=== PATIENT | male | born 1940 | race Caucasian/White ===

== ENCOUNTER → 2016-10-26 | Outpatient (CLI) | payer MEDICARE, OTHER ==
[2014-03-16 15:20] VITALS: BP 116/71
[~2016-10-26] MED LIST: ACLI400A2 IH; ALBU2.5V14 NEB; ALBU8.5H6 INH; ALLO100T PO; CAPS42.510 TP; CELE200C PO; CHOL10002 PO; DILT120C80 PO; FURO40TA4 PO; GLIP5TAB10 PO; GLUC1CAP48 PO; HYDR-2165 PO; KETO5DRO OP; MAGN27TA3 PO; METF-620 PO; METF500T4 PO; METO100T5 PO; METO1TAB7 PO; METO50TA2 PO; MULT-211 PO; NIAC750T4 PO; OMEG300C PO; OMEP20CA9 PO; OXYC-323 PO; POTA20TA84 PO; PSYL0.526 PO; TAMS0.4C2 PO; TELM40TA4 PO; TORS20TA2 PO; WARF2TAB7 PO; WARF4TAB7 PO
--- NOTE | 2016-10-26 13:03 | CARD ---
APPROVED REPORT EXAM: Two-dimensional and M-mode echocardiogram with Doppler and color Doppler. Other Information Quality : Average Rhythm : Atrial Fibrillation INDICATION COPD 2D DIMENSIONS RVDd4.4 (2.9-3.5cm)Left Atrium(2D)4.3 (1.6-4.0cm) IVSd0.9 (0.7-1.1cm)Aortic Root(2D)3.7 (2.0-3.7cm) LVDd5.1 (3.9-5.9cm)LVOT Diameter2.2 (1.8-2.4cm) PWd0.9 (0.7-1.1cm)LVDs3.0 (2.5-4.0cm) SV91.5 mlLVEF(%)50.8 (>50%) Aortic Valve AoV Peak Jimenez.137.6cm/sAoV VTI29.6cm AO Peak GR.7.6mmHgLVOT Peak Jimenez.80.2cm/s LVOT VTI 15.58cmAO Mean GR.6mmHg GIBSON (VMAX)2.95md3MLX (VTI)2.01cm2 Mitral Valve MV DECEL [id number] E Mean Gr.2mmHg MV [id number] A [id number] MVA (PHT)4.18cm2 Pulmonary Valve PV Peak Vonrrbrp20.9cm/sPV Peak Grad.4mmHg RVOT VTI13.9cm Tricuspid Valve TR P. Fktyrnij768et/sRAP [id number] TR Peak Gr.72olJuJYTF71hgSg LEFT VENTRICLE The left ventricle is normal size. There is normal left ventricular wall thickness. Left ventricle sy stolic function is normal. The Ejection Fraction is 55%. There is normal LV segmental wall motion. Un able to estimate diastolic function. There is no ventricular septal defect visualized. RIGHT VENTRICLE The right ventricle is normal size. The right ventricular systolic function is normal. ATRIA The left atrium is mildly dilated. The right atrium size is normal. The interatrial septum is intact with no evidence for an atrial septal defect or patent foramen ovale as noted on 2-D or Doppler imagi ng. AORTIC VALVE The aortic valve is moderately sclerotic. The aortic valve appears trileaflet. Doppler and Color Flow revealed no significant aortic regurgitation. There is no significant aortic valvular stenosis. MITRAL VALVE Mitral annular calcification is moderate. The mitral valve leaflets are thickened. There is no mitral valve stenosis. Doppler and Color Flow revealed mild mitral regurgitation. TRICUSPID VALVE The tricuspid valve is normal in structure and function. Doppler and Color Flow revealed mild tricusp id regurgitation. The PA pressure was estimated at 30 mmHg. There is no tricuspid valve stenosis. PULMONIC VALVE The pulmonic valve is not well visualized. Doppler and Color Flow revealed no pulmonic valvular regur gitation. There is no pulmonic valvular stenosis. GREAT VESSELS The aortic root is normal in size. The ascending aorta is normal in size. Normal pulmonary venous garima w (Doppler). The IVC is normal in size and collapses >50% with inspiration. PERICARDIAL EFFUSION There is no evidence of significant pericardial effusion. Critical Notification Critical Value: No <Conclusion> Left ventricle systolic function is normal. The Ejection Fraction is 55%. There is normal LV segmental wall motion. Mild mitral regurgitation. Mild tricuspid regurgitation. The PA pressure was estimated at 30 mmHg. There is no evidence of significant pericardial effusion.
--- NOTE | 2016-10-29 19:52 | RAD ---
APPROVED REPORT Patient Location : OUT-PATIENT Indications Lower Extremity Pain : Bilateral Stasis Disease Lower Extremity Edema : Bilateral Varicose Veins Skin Changes Risk Factors Obesity Past History Compression Stockings : Yes Deep System Deep Venous Thrombosis present : No Deep Venous Reflux present : Left Greater Saphenous Veins (GSV) Significant venous relux noted in the LEFT GSV at the following levels : Proximal Calf Perforators Thigh Perforators Right: cm up from knee crease 65cm back from the anterior border of femur 20 diameter 4mm. Left: cm up from knee crease 70cm back from the anterior border of femur 17 diameter 3.6mm. Calf Perforators Right: cm up from medial heel 20cm back from the anterior border of tibia 12 diameter 2.3mm. Left: cm up from medial heel 15cm back from the anterior border of tibia 17 diameter 1.7mm. Findings The left great saphenous vein measures approximately 11 mm at the junction of the femoral vein. The s aphenous vein is dilated and has a reflux time of approximately 3.2 seconds. There are multiple perfo rators noted in the calf at approximately 15, 17, 86 cm up and 10, 10, 15 cm up with diameters of 2.5 -4 mm. There is one thigh coding support specialist noted at 70 cm up and 17 cm back with a diameter of 3.6 mm. The left lesser saphenous vein does not show any evidence of reflux. The right great saphenous vein measures 1.1 cm at the saphenofemoral junction. There is no clear evid ence of reflux on spectral and color Doppler imaging. The right lesser saphenous vein was not well vi sualized but does not appear to show any evidence of reflux. Again multiple perforators are noted in the right calf at approximately 20, 42 cm up and 12, 13 cm back respectively. The dimensions are appr oximately 2.2 mm. Given the evidence of a dilated great saphenous vein and multiple perforators in th e calf and thigh it is likely that the right great saphenous vein also has significant reflux but lik lai due to technical limitations this was not demonstrated. Critical Notification Critical Value: No <Conclusion> 1. Positive for reflux in the left greater saphenous vein. 2. Suspicious for reflux in the right greater saphenous vein although due to technical limitations, r eflux time could not be accurately calculated.
== END | disposition home or self-care (01) ==
LOC: US 08:33
PROVIDERS: ATTEND Internal Medicine Cardiovascular Disease
DX: I08.1 Rheumatic disorders of both mitral and tricuspid valves (principal); I87.2 Venous insufficiency (chronic) (peripheral); M79.605 Pain in left leg; M79.604 Pain in right leg; R60.0 Localized edema; I83.93 Asymptomatic varicose veins of bilateral lower extremities
CPT/HCPCS: 93306; 93970

== ENCOUNTER → 2017-09-04 | Outpatient (CLI) | payer MEDICARE | END | disposition home or self-care (01) | LOC: KCIC 12:46 | DX: M47.896 Other spondylosis, lumbar region (principal); I77.811 Abdominal aortic ectasia | CPT/HCPCS: 72110 ==

== ENCOUNTER 2017-11-24 07:18 | Emergency (ER) | payer MEDICARE, OTHER ==
[~2017-11-24] VITALS: Ht 185.4 cm; Wt 104.3 kg
[~2017-11-24 07:18] MED LIST changes: -METF-620 PO; +METF10003 PO; -METF500T4 PO; +METF500T5 PO; -METO50TA2 PO; +METO50TA6 PO; -WARF2TAB7 PO; +WARF2TAB96 PO; +WARF4TAB64 PO; -WARF4TAB7 PO
--- NOTE | 2017-11-24 07:31 | PHYS DOC ---
Past Medical History Past Medical History: A-Fib, CHF, COPD, Diabetes-Type II, GERD, High Cholesterol, Hypertension, Other Additional Past Medical Histor: "OLD [place]," CARDIAC [id number],CHF, Past Surgical History: Tonsillectomy, Other Additional Past Surgical Histo: FOOT, Alcohol Use: Occasionally Drug Use: None Adult General Chief Complaint Chief Complaint: LOWER EXTREMITY SWELLING [facility] HPI Patient is a 77 year old male presenting with right leg redness and swelling onset 2 days ago apparently had a small skin tear on his foot from a piece of tape apparently had an ulcer was pretty much healed but the piece of tape caused a small skin tear. He then has had slowly progressive redness swelling mild dull nonradiating pain right lower extremity no fever no other exacerbating factors Review of Systems Review of Systems Constitutional: Denies fever or chills [] Eyes: Denies change in visual acuity, redness, or eye pain [] HENT: Denies nasal congestion or sore throat [] Respiratory: Denies cough or shortness of breath [] Cardiovascular: No additional information not addressed in HPI [] Endocrine: Denies polyuria or polydipsia [] All other systems were reviewed and found to be within normal limits, except as documented in this note. Current Medications Current Medications Current Medications Medications (Trade) Dose Ordered Sig/Dejuan Start Time Stop Time Status Last Admin Dose Admin Clindamycin Phosphate 50 ml @ 100 mls/hr 1X ONCE 11/24/17 08:00 11/24/17 08:29 DC 11/24/17 07:57 100 MLS/HR Allergies Allergies Allergies Coded Allergies Type Severity Reaction Last Updated Verified Ivhauzr-Lyj-Vob Reductase Inhibitor Allergy Intermediate 03/16/14 Yes Physical Exam Physical Exam Constitutional: Well developed, well nourished, no acute distress, non-toxic appearance. [] HENT: Normocephalic, atraumatic, bilateral external ears normal, oropharynx moist, no oral exudates, nose normal. [] Eyes: PERRLA, EOMI, conjunctiva normal, no discharge. [] Neck: Normal range of motion, no tenderness, supple, no stridor. [] Pulmonary: Normal respiratory effort no increased work of breathing no obvious chest wall trauma Abdomen: Bowel sounds normal, soft, no tenderness, no masses, no pulsatile masses. [] Skin: There is an area of erythema with induration and tenderness from the mid danielson down to the ankle consistent with cellulitis pedal pulses are intact there is a small skin tear on the plantar aspect of the foot no ulcer is seen. No streaking xtremities 2+ edema bilaterally Neurologic: Alert and oriented X 3, normal motor function, normal sensory function, no focal deficits noted. [] Psychologic: Affect normal, judgement normal, mood normal. [] Current Patient Data Vital Signs Vital Signs Date Time Temp Pulse Resp B/P (MAP) Pulse Ox O2 Delivery O2 Flow Rate FiO2 11/24/17 08:22 81 17 112/56 (74) 95 Room Air 11/24/17 07:28 97.9 97.9 Lab Values Laboratory Tests Test 11/24/17 07:31 White Blood Count 8.1 x10^3/uL (4.0-11.0) Red Blood Count 4.49 x10^6/uL (4.30-5.70) Hemoglobin 14.3 g/dL (13.0-17.5) Hematocrit 43.0 % (39.0-53.0) Mean Corpuscular Volume 96 fL (79-100) Mean Corpuscular Hemoglobin 32 pg (25-35) Mean Corpuscular Hemoglobin Concent 33 g/dL (31-37) Red Cell Distribution Width 17.8 % (11.5-14.5) H Platelet Count 117 x10^3/uL (140-400) L Neutrophils (%) (Auto) 79 % (31-73) H Lymphocytes (%) (Auto) 10 % (24-48) L Monocytes (%) (Auto) 10 % (0-9) H Eosinophils (%) (Auto) 1 % (0-3) Basophils (%) (Auto) 0 % (0-3) Neutrophils # (Auto) 6.4 x10^3uL (1.8-7.7) Lymphocytes # (Auto) 0.8 x10^3/uL (1.0-4.8) L Monocytes # (Auto) 0.8 x10^3/uL (0.0-1.1) Eosinophils # (Auto) 0.1 x10^3/uL (0.0-0.7) Basophils # (Auto) 0.0 x10^3/uL (0.0-0.2) Sodium Level 136 mmol/L (136-145) Potassium Level 3.9 mmol/L (3.5-5.1) Chloride Level 98 mmol/L (98-107) Carbon Dioxide Level 28 mmol/L (21-32) Anion Gap 10 (6-14) Blood Urea Nitrogen 10 mg/dL (8-26) Creatinine 0.8 mg/dL (0.7-1.3) Estimated GFR (Cockcroft-Gault) 93.5 BUN/Creatinine Ratio 13 (6-20) Glucose Level 105 mg/dL (70-99) H Calcium Level 8.3 mg/dL (8.5-10.1) L Total Bilirubin 1.3 mg/dL (0.2-1.0) H Aspartate Amino Transferase (AST) 27 U/L (15-37) Alanine Aminotransferase (ALT) 28 U/L (16-63) Alkaline Phosphatase 80 U/L (46-116) Total Protein 6.0 g/dL (6.4-8.2) L Albumin 3.6 g/dL (3.4-5.0) Albumin/Globulin Ratio 1.5 (1.0-1.7) Laboratory Tests 11/24/17 07:31 Laboratory Tests 11/24/17 07:31 EKG EKG [] Radiology/Procedures Radiology/Procedures [] Course & Med Decision Making Course & Med Decision Making Pertinent Labs and Imaging studies reviewed. (See chart for details) []77-year-old male history of peripheral neuropathy was presenting with right lower extremity cellulitis overall it appears mild to moderate dose of IV Clinda mice given in the emergency room and prescription for Keflex and Bactrim was provided. Check basic lab work and give return precautions to come back within 48 hours should the redness get worse or not improve during that timeframe or for any other new symptoms or concerns. Keep legs elevated stay off them good wound care he has a partner who can help him. Dragon Disclaimer Dragon Disclaimer This electronic medical record was generated, in whole or in part, using a voice recognition dictation system. Departure Departure Impression: Primary Impression: Cellulitis Disposition: 01 HOME, SELF-CARE Condition: IMPROVED Referrals: Jose HASSAN MD (PCP) Scripts Cephalexin (CEPHALEXIN) 500 Mg Capsule 1 CAP PO QID, #40 CAP Prov: ROSEMAREI PALACIOS MD 11/24/17 Sulfamethoxazole/Trimethoprim (BACTRIM DS TABLET) 1 Each Tablet 1 TAB PO BID, #20 TAB Prov: ROSEMARIE PALACIOS MD 11/24/17 ROSEMARIE PALACIOS MD Nov 24, 2017 07:31
[2017-11-24] MEDS ORDERED: SULF1TAB24 PO (07:51)
[2017-11-24] MEDS ORDERED: CEPH500C PO (07:51)
[2017-11-24] MEDS ORDERED: CLINDAMYCIN 600MG PREMIX 50 ML IV ONE (08:00)
[2017-11-24 08:03] LABS: BASO % 0 % (0-3); EOS # 0.1 x10^3/uL (0.0-0.7); EOS % 1 % (0-3); HEMOGLOBIN 14.3 g/dL (13.0-17.5); LYMPH # 0.8 x10^3/uL (1.0-4.8); LYMPH % 10 % (24-48); MEAN CORPUSCULAR HEMOGLOBIN 32 pg (25-35); MEAN CORPUSCULAR HGB CONC 33 g/dL (31-37); MEAN CORPUSCULAR VOLUME 96 fL (79-100); MONO # 0.8 x10^3/uL (0.0-1.1); MONO % 10 % (0-9); NEUT # 6.4 x10^3uL (1.8-7.7); NEUT % 79 % (31-73); PLATELET COUNT 117 x10^3/uL (140-400); RED BLOOD COUNT 4.49 x10^6/uL (4.30-5.70); RED CELL DISTRIBUTION WIDTH 17.8 % (11.5-14.5); WHITE BLOOD COUNT 8.1 x10^3/uL (4.0-11.0)
[2017-11-24 08:09] LABS: CALCIUM 8.3 mg/dL (8.5-10.1); CREATININE 0.8 mg/dL (0.7-1.3); GFR 93.5; POTASSIUM 3.9 mmol/L (3.5-5.1)
[2017-11-24 08:15] LABS: ALBUMIN 3.6 g/dL (3.4-5.0); ALBUMIN/GLOBULIN RATIO 1.5 (1.0-1.7); TOTAL BILIRUBIN 1.3 mg/dL (0.2-1.0)
[2017-11-24 08:52] VITALS: BP 155/74
== END 2017-11-24 08:55 | disposition home or self-care (01) ==
LOC: ER 07:18
DX: L03.115 Cellulitis of right lower limb (principal); J44.9 Chronic obstructive pulmonary disease, unspecified; K21.9 Gastro-esophageal reflux disease without esophagitis; I48.91 Unspecified atrial fibrillation; E78.00 Pure hypercholesterolemia, unspecified; I11.0 Hypertensive heart disease with heart failure; I50.9 Heart failure, unspecified; E11.42 Type 2 diabetes mellitus with diabetic polyneuropathy; Z91.041 Radiographic dye allergy status
CPT/HCPCS: 36415; 80053; 85025; 96365; 99284; J3490

== ENCOUNTER 2017-11-25 03:55 | Emergency (ER) | payer MEDICARE, OTHER ==
[~2017-11-25] VITALS: Ht 182.9 cm; Wt 104.3 kg
[~2017-11-25 03:55] MED LIST changes: +CEPH500C PO; +SULF1TAB24 PO
[2017-11-25 04:05] VITALS: BP 134/77
--- NOTE | 2017-11-25 06:29 | PHYS DOC ---
Past Medical History Past Medical History: A-Fib, CHF, COPD, Diabetes-Type II, GERD, High Cholesterol, Hypertension, [place], Other Additional Past Medical Histor: CARDIAC [id number] Past Surgical History: Tonsillectomy, Other Additional Past Surgical Histo: FOOT, CARDIAC CATH Alcohol Use: Occasionally Drug Use: None Adult General Chief Complaint Chief Complaint: CELLULITIS HPI HPI Patient is a 77 year old male who presents for a wound check. I did see this patient yesterday in the emergency room with cellulitis was discharged on antibiotics he says he has taken 2 doses but he is worried because he is not better yet. No fever he does want come to be checked out. Review of Systems Review of Systems Constitutional: Denies fever or chills [] Eyes: Denies change in visual acuity, redness, or eye pain [] Neurologic: Denies headache, focal weakness or sensory changes [] Endocrine: Denies polyuria or polydipsia [] All other systems were reviewed and found to be within normal limits, except as documented in this note. Current Medications Current Medications Current Medications Medications (Trade) Dose Ordered Sig/Dejuan Start Time Stop Time Status Last Admin Dose Admin Ceftriaxone Sodium (Rocephin Im) 1 gm 1X ONCE 11/25/17 06:30 11/25/17 06:31 UNV Allergies Allergies Allergies Coded Allergies Type Severity Reaction Last Updated Verified Ehlncmw-Svj-Poz Reductase Inhibitor Allergy Intermediate 03/16/14 Yes Physical Exam Physical Exam Constitutional: Well developed, well nourished, no acute distress, non-toxic appearance. [] HENT: Normocephalic, atraumatic, bilateral external ears normal, oropharynx moist, no oral exudates, nose normal. [] Eyes: PERRLA, EOMI, conjunctiva normal, no discharge. [] Neck: Normal range of motion, no tenderness, supple, no stridor. [] Pulmonary: Normal respiratory effort no increased work of breathing no obvious chest wall trauma Abdomen: Bowel sounds normal, soft, no tenderness, no masses, no pulsatile masses. [] Skin: Warm, dry, no erythema, no rash. [] Back: No tenderness, no CVA tenderness. [] Extremities: 2+ edema bilaterally on the right leg there is similar appearing slightly more erythematous area on the anterior danielson down to the ankle. There is a ulcer on the fourth toe which looks similar previous it is dry appearing there is also a small skin tear on the plantar aspect of the foot. Overall the appearance is similar in size slightly more erythematous on the danielson then yesterday no fluctuance Neurologic: Alert and oriented X 3, normal motor function, normal sensory function, no focal deficits noted. [] Psychologic: Affect normal, judgement normal, mood normal. [] Current Patient Data Vital Signs Vital Signs Date Time Temp Pulse Resp B/P (MAP) Pulse Ox O2 Delivery O2 Flow Rate FiO2 11/25/17 04:05 98.7 87 22 134/77 (96) 100 Room Air 98.7 EKG EKG [] Radiology/Procedures Radiology/Procedures [] Course & Med Decision Making Course & Med Decision Making Pertinent Labs and Imaging studies reviewed. (See chart for details) []77-year-old male with a history of neuropathy and edema peripheral edema presenting with wound check. His cellulitis does appear slightly worse. Given his edema and peripheral vascular disease I did recommend that he be admitted to the hospital however he says that he has some dogs at home he needs to go home to check on them I did encourage him to keep his legs elevated and to come back within 24 hours for admission if he is not getting better. A dose of IM ceftriaxone was also given. He is agreeable to this plan. Dragon Disclaimer Dragon Disclaimer This electronic medical record was generated, in whole or in part, using a voice recognition dictation system. Departure Departure Impression: Primary Impression: Cellulitis Disposition: HOME, SELF-CARE Condition: IMPROVED Patient Instructions: Cellulitis, [id number] Additional Instructions: come back to be admitted in 24 hours if not better ROSEMARIE PALACIOS MD Nov 25, 2017 06:29
[2017-11-25] MEDS ORDERED: cefTRIAXone IM 1 GM VIAL IM ONE (06:45)
== END 2017-11-25 06:54 | disposition home or self-care (01) ==
LOC: ER 03:55
DX: L03.115 Cellulitis of right lower limb (principal); I11.0 Hypertensive heart disease with heart failure; I50.9 Heart failure, unspecified; I48.91 Unspecified atrial fibrillation; E11.9 Type 2 diabetes mellitus without complications; J44.9 Chronic obstructive pulmonary disease, unspecified; E78.00 Pure hypercholesterolemia, unspecified; K21.9 Gastro-esophageal reflux disease without esophagitis; I25.2 Old myocardial infarction; Z90.89 Acquired absence of other organs; Z88.8 Allergy status to other drugs, medicaments and biological substances
CPT/HCPCS: 96372; 99283; J0696

== ENCOUNTER 2017-11-27 06:11 | Emergency (ER) | payer MEDICARE, OTHER ==
[~2017-11-27] VITALS: Ht 182.9 cm; Wt 104.3 kg
[2017-11-27 06:19] VITALS: BP 111/64
--- NOTE | 2017-11-27 06:56 | PHYS DOC ---
Past Medical History Past Medical History: A-Fib, COPD, Diabetes-Type II, Hypertension Additional Past Medical Histor: CARDIAC [id number] Past Surgical History: Other Additional Past Surgical Histo: BILAT BIG TOES, CATARACT, BACK SURG Alcohol Use: None Drug Use: Opiates Adult General Chief Complaint Chief Complaint: WOUND CHECK HPI HPI Patient is a 77-year-old male presents to the emergency department for evaluation. He was diagnosed with cellulitis on his right leg on Sunday, where he noticed some redness. The area was demarcated, and he was started on Bactrim and Keflex. He states that the degree and intensity of the redness has decreased, and the area of redness has also receded more distally, and has not spread. He has not had any fever, and the swelling of his leg has improved as well. He does have, in his right foot, small collin-sized wound which has been there. He states he does see a gelatin maker utility, as he is a diabetic, but has not seen him about this wound. He has no other complaints at this time. His main purpose for coming to the emergency department was to just have his leg rechecked. He has not had any drainage from the area and has not had any pain. Review of Systems Review of Systems Constitutional: Denies fever or chills [] Eyes: Denies change in visual acuity, redness, or eye pain [] Respiratory: Denies cough or shortness of breath [] Cardiovascular: The patient denies any shortness of breath, chest pain, palpitations, or orthopnea [] GI: Denies abdominal pain, nausea, vomiting, bloody stools or diarrhea [] : Denies dysuria or hematuria [] Musculoskeletal: Denies back pain or joint pain [] Neurologic: Denies headache, focal weakness or sensory changes, although he does have chronic neuropathy. [] Allergies Allergies Allergies Coded Allergies Type Severity Reaction Last Updated Verified Jmjwvcu-Cps-Esi Reductase Inhibitor Allergy Intermediate 03/16/14 Yes Physical Exam Physical Exam PHYSICAL EXAM: HEENT: Atruamatic NECK: Supple, normal ROM, non-tender. CARDIAC: Regular Rate and Rhythm LUNGS: Clear Bilaterally EXTREMITIES: There is mild edema to the lower extremities bilaterally. On the right leg, there is an area of erythema around the ankle extending proximally on the lower leg, and at approximately the two thirds distal peyman on the leg, on the danielson, there is an area of demarcation, and the erythema appears to have receded more distal to this, without any more proximal spread. There is a strong dorsalis pedis pulse. On the plantar surface of the right foot, over the head of the fifth metatarsal, there is a stage I ulcer about collin-sized. Current Patient Data Vital Signs Vital Signs Date Time Temp Pulse Resp B/P (MAP) Pulse Ox O2 Delivery O2 Flow Rate FiO2 11/27/17 06:19 98.1 86 18 111/64 (80) 97 Room Air 98.1 EKG EKG [] Radiology/Procedures Radiology/Procedures [] Course & Med Decision Making Course & Med Decision Making The patient's condition remained stable here appears to be improving on his antibiotics, which I encouraged him to continue. I encouraged him to contact his gelatin maker utility to have his ulcer evaluated and treated. Dragon Disclaimer Dragon Disclaimer This electronic medical record was generated, in whole or in part, using a voice recognition dictation system. Departure Departure Impression: Primary Impression: Cellulitis Additional Impression: Diabetic foot ulcer Disposition: 01 HOME, SELF-CARE Condition: STABLE Referrals: Jose HASSAN MD (PCP) Patient Instructions: Cellulitis, Diabetes and Foot Care Additional Instructions: Continue taking your previously prescribed antibiotics. Contact your primary care provider for further management. Additionally, make an appointment to see your gelatin maker utility for further evaluation and treatment of your foot wound. Problem Qualifiers JASMYNE BELLAMY MD Nov 27, 2017 06:56
== END 2017-11-27 07:05 | disposition home or self-care (01) ==
LOC: ER 06:11
DX: E11.621 Type 2 diabetes mellitus with foot ulcer (principal); L97.518 Non-pressure chronic ulcer of other part of right foot with other specified severity; I48.91 Unspecified atrial fibrillation; J44.9 Chronic obstructive pulmonary disease, unspecified; I10 Essential (primary) hypertension; Z91.041 Radiographic dye allergy status
CPT/HCPCS: 99283

== ENCOUNTER → 2017-12-25 | Outpatient (CLI) | payer MEDICARE, OTHER ==
[2017-11-27 06:19] VITALS: BP 111/64
[~2017-12-25] MED LIST changes: -METF10003 PO; +METF10007 PO; +METF500T16 PO; -METF500T5 PO
--- NOTE | 2017-12-25 17:49 | KCIC ---
MRI of the lumbar spine without contrast 12/25/2017 CLINICAL HISTORY: Chronic low back pain. TECHNIQUE: Unenhanced T1-weighted and T2-weighted sagittal and axial and inversion recovery sagittal images of the lumbar spine were obtained. FINDINGS: Comparison is made to radiographs of the lumbar spine dated 09/04/2017. Minimal S-shaped curvature of the thoracolumbar spine is seen. Degenerative signal changes and loss of height are seen involving all of the disks of the lumbar spine. Degenerative signal changes are seen within the marrow surrounding these discs. The patient is post kyphoplasty type procedure involving the L2 vertebral body. No acute compression fracture of the lumbar vertebrae is seen. The conus medullaris is normal in morphology, position, and signal characteristics. Rounded high signal intensity lesions are seen involving both kidneys on the T2-weighted images. These measure 5 mm to 6.5 cm in size. They likely represent cysts. At the L1-2 disc space there is a mild generalized disc bulge. Degenerative changes are seen involving the facet joints bilaterally. There is mild ligamentum flavum hypertrophy bilaterally. These findings do not result in significant central spinal canal or neural foraminal stenosis. At the L2-3 disc space there is a moderate generalized disc bulge. Degenerative changes are seen involving the facet joints bilaterally. There is moderate ligamentum flavum hypertrophy bilaterally. These findings when combined result in mild central spinal canal stenosis. No neural foraminal stenosis is seen. At the L3-4 disc space there is a moderate generalized disc bulge. This is eccentric to the right. Degenerative changes are seen involving the facet joints bilaterally. There is moderate ligamentum flavum hypertrophy bilaterally. These findings when combined result in moderate to severe central spinal canal stenosis. Mild right neural foraminal stenosis is seen. The left neural foramen is patent. At the L4-5 disc space there is a moderate generalized disc bulge. Degenerative changes are seen involving the facet joints bilaterally. There is mild ligamentum flavum hypertrophy bilaterally. These findings when combined result in mild to moderate central spinal canal stenosis. Mild right neural foraminal stenosis is seen. The left neural foramen is patent. At the L5-S1 disc space there is a mild generalized disc bulge. Degenerative changes are seen involving the facet joints bilaterally. There is mild ligamentum flavum hypertrophy bilaterally. These findings when combined result in mild left-sided neural foraminal stenosis. The right neural foramen is patent. No significant central spinal canal stenosis is seen. 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 These findings result in mild central spinal canal stenosis at L2-3, moderate to severe central spinal canal stenosis at L3-4 and mild to moderate central spinal canal stenosis at L4-5. Mild right neural foraminal stenosis is seen at L3-4 and L4-5. Mild left neural foraminal stenosis is seen at L5-S1. Electronically signed by: Michael Leyva MD (12/25/2017 5:45 PM) [id number]
== END | disposition home or self-care (01) ==
LOC: KCIC MRI 15:47
PROVIDERS: ATTEND Family Medicine
DX: M51.36 Other intervertebral disc degeneration, lumbar region (principal); M48.061 Spinal stenosis, lumbar region without neurogenic claudication; M48.07 Spinal stenosis, lumbosacral region; M89.38 Hypertrophy of bone, other site; G89.29 Other chronic pain
CPT/HCPCS: 72148

== ENCOUNTER → 2018-01-29 | Outpatient (CLI) | payer MEDICARE, OTHER ==
[~2018-01-29] MED LIST changes: +HYDR-2758 PO; +IOHEXOL 180 MG/ML 10 ML VIAL. ONE; +LIDOCAINE 1% PF 2 ML VIAL. ONE; +methylPREDNISolone ACETATE 40 MG/ML VIAL. ONE; +methylPREDNISolone ACETATE 80 MG/ML VIAL. ONE
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
== END | disposition home or self-care (01) ==
LOC: PNCL 10:25
PROVIDERS: ATTEND Anesthesiology
DX: M51.16 Intervertebral disc disorders with radiculopathy, lumbar region (principal); M48.061 Spinal stenosis, lumbar region without neurogenic claudication; M96.1 Postlaminectomy syndrome, not elsewhere classified; I10 Essential (primary) hypertension; E11.9 Type 2 diabetes mellitus without complications; M19.90 Unspecified osteoarthritis, unspecified site; J44.9 Chronic obstructive pulmonary disease, unspecified; Z87.891 Personal history of nicotine dependence; I48.91 Unspecified atrial fibrillation; K21.9 Gastro-esophageal reflux disease without esophagitis; Z98.890 Other specified postprocedural states; Z79.899 Other long term (current) drug therapy; Z79.84 Long term (current) use of oral hypoglycemic drugs; Z88.8 Allergy status to other drugs, medicaments and biological substances; Z83.3 Family history of diabetes mellitus; Z82.49 Family history of ischemic heart disease and other diseases of the circulatory system; Z83.6 Family history of other diseases of the respiratory system; Z98.49 Cataract extraction status, unspecified eye; Z96.1 Presence of intraocular lens
CPT/HCPCS: 62323; J1030; J1040; Q9965

== ENCOUNTER → 2018-02-12 | Outpatient (CLI) | payer MEDICARE, OTHER ==
[~2018-02-12] MED LIST changes: -IOHEXOL 180 MG/ML 10 ML VIAL. ONE; -LIDOCAINE 1% PF 2 ML VIAL. ONE
--- NOTE | 2018-02-12 20:05 | PAIN ---
DATE OF SERVICE: 02/12/2018 PROGRESS NOTE FOR PAIN CLINIC DIAGNOSES: Lumbar radiculopathy with lumbar spinal stenosis, degenerative disk disease and lumbar post-laminectomy syndrome. HISTORY OF PRESENT ILLNESS: The patient is a 77-year-old male who returns for followup status post lumbar epidural steroid injection x 1. The patient reports better for a few days but with painful for the first day and a half or so and then, the pain began to return after about 2 weeks or is in the low back once again. The patient reports no longer radiating to the lower extremity significantly but very painful across the low back, slightly worse on the right than the left but again doing better. The patient reports it is a 5-6 on a scale of 10 at its worst, least and its average and is a 5-6 today. The patient reports it is aching, dull, cramping at times, constant across the low back, worse with standing, walking, changing positions. The patient reports it is better with lying down or sitting down and really only bothers him when he is on his feet and walking or standing. The patient reports no new motor or sensory deficits and no new bowel or bladder incontinence or other complaints. PHYSICAL EXAMINATION: VITAL SIGNS: The patient's blood pressure 107/65, pulse 71, respirations are 18 and temperature 98.1 degrees Fahrenheit. Height is 6 feet and weight is 233 pounds. GENERAL: The patient is awake, alert, oriented, appropriate and very pleasant demeanor. HEENT: Head shows normocephalic and atraumatic. Extraocular movements are intact and symmetrical. Oral cavity: Mucous membranes are moist and pink. Dentition is intact. NECK: Shows anterior throat supple without palpable lymphadenopathy noted. Swallow reflex is symmetrical. CHEST: Shows normal on inspection. Breath sounds are clear to auscultation bilaterally. HEART: Shows S1 and S2 clear. No murmurs auscultated. ABDOMEN: Soft, nontender and nondistended. No palpable organomegaly is noted. No rebound or guarding demonstrated. BACK: Shows spine grossly in the midline. Normal-appearing thoracic kyphosis and some minor flattening of the lumbar lordotic curvature. Well-healed surgical scarring noted. Lumbar paraspinous musculature shows symmetrical on inspection, on palpation shows some moderate tenderness diffusely in the middle and lower distribution of the paraspinous muscles, but only diffusely without radiation. The patient shows good rotational motion of the lumbar spine, both laterally as well as extension and flexion without significant difficulty. EXTREMITIES: The patient's lower extremities show deep tendon reflexes 1+ in the patellar and tendo-calcaneus tendons. Motor exam is approximately 4 on a scale of 5 but equal and symmetrical with dorsiflexion, extension, quadriceps and hamstring flexion. Peripheral pulses are 1+ posterior tibial. No peripheral edema is noted bilaterally. Options were discussed with the patient. The patient's old chart was reviewed as well as his current medication regimen updated. Current review of systems updated today as well. We will proceed with a second lumbar epidural steroid injection today with fluoroscopic guidance. Risks were again discussed including, but not limited to bleeding, infection, possibility of epidural hematoma, subsequent neurological compromise, dural puncture, headaches, spinal cord and/or nerve damage, side effects of steroid medication and poor results regarding pain control. The patient understands and wished to proceed. The patient will return to the clinic in approximately 2 weeks for followup, was counseled as to return appointment, activity level and side effects to be aware of. DIAGNOSES: Lumbar radiculopathy with lumbar degenerative disk disease, lumbar spinal stenosis and post-lumbar laminectomy syndrome. PROCEDURE: Lumbar epidural steroid injection, translaminar approach at the L3-L4 level using C-arm fluoroscopic guidance under sterile prep and drape using local anesthetic. MEDICATION INJECTED: A total of 120 mg Depo-Medrol plus 10 mL of preservative-free normal saline and 2 mL of Isovue for contrast. CONDITION AT DISCHARGE: Stable. The patient tolerated the procedure well and had no complications. CARIE JUNE MD DR: MARY/chas JOB#: [id number] / [id number]
== END | disposition home or self-care (01) ==
LOC: PNCL 09:34
PROVIDERS: ATTEND Anesthesiology
DX: M51.16 Intervertebral disc disorders with radiculopathy, lumbar region (principal); M96.1 Postlaminectomy syndrome, not elsewhere classified; M48.061 Spinal stenosis, lumbar region without neurogenic claudication; J44.9 Chronic obstructive pulmonary disease, unspecified; I10 Essential (primary) hypertension; K21.9 Gastro-esophageal reflux disease without esophagitis; E11.9 Type 2 diabetes mellitus without complications; M19.90 Unspecified osteoarthritis, unspecified site; I21.29 ST elevation (STEMI) myocardial infarction involving other sites; E78.5 Hyperlipidemia, unspecified; I25.10 Atherosclerotic heart disease of native coronary artery without angina pectoris; Z98.890 Other specified postprocedural states; Z79.899 Other long term (current) drug therapy; Z88.8 Allergy status to other drugs, medicaments and biological substances; Z79.84 Long term (current) use of oral hypoglycemic drugs; Z87.891 Personal history of nicotine dependence; Z98.49 Cataract extraction status, unspecified eye
CPT/HCPCS: 62323; J1030; J1040

== ENCOUNTER → 2018-03-19 | Outpatient (CLI) | payer MEDICARE, OTHER ==
[~2018-03-19] MED LIST changes: -DILT120C80 PO; +DILT120C85 PO; -HYDR-2758 PO; +HYDR-2761 PO; +IOHEXOL 180 MG/ML 10 ML VIAL. ONE; -OXYC-323 PO; +OXYC1TAB15 PO
--- NOTE | 2018-03-19 15:21 | PAIN ---
DATE OF SERVICE: 03/19/2018 PROGRESS NOTE FOR PAIN CLINIC DIAGNOSIS: Lumbar radiculopathy with lumbar degenerative disk disease, lumbar spinal stenosis and post-lumbar laminectomy syndrome. HISTORY OF PRESENT ILLNESS: The patient is a 78-year-old male who returns for followup status post lumbar epidural steroid injection x 2. The patient reports his last injection did very well with approximately 65% improvement from the last injection with pain in the low back and left lower extremity. The patient reports he was doing well until he fell about a week ago, he was trying to move a mat on the ground with his foot, stood on his left side and fell on his left side as he lost his balance. The patient reports that the pain has returned after that point in the low back and some in the left leg, mostly in the low back. The patient reports otherwise he is doing very well, increasing his activity, distance walking, able to do household activities with greater increase in comfort and traveling much more comfortably as well as sleeping well at night. The patient reports he still sleeps well. The pain does not awaken him from sleep. The patient reports no new motor or sensory deficits, no new bowel or bladder incontinence. The patient describes the pain as aching and dull, cramping across the low back, radiating into left lower extremity, becoming more noticeable, more constant. The patient reports it is a 9 on a scale of 10 at its worst, 8-9 on average and 8 at its least and is an 8 today. PHYSICAL EXAMINATION: VITAL SIGNS: The patient's blood pressure is 119/70, pulse 70, respirations 18, temperature 98.2 degrees Fahrenheit, height is 6 feet, weight is 239 pounds. GENERAL: The patient is awake, alert, oriented, appropriate, very pleasant demeanor. HEENT: His head shows normocephalic and atraumatic. Extraocular movements are intact and symmetrical. Oral cavity: Mucous membranes are moist and pink. Dentition is intact. NECK: Shows anterior throat supple without palpable lymphadenopathy noted. Swallow reflex is symmetrical. CHEST: Shows normal on inspection. Breath sounds are clear to auscultation bilaterally. HEART: Shows S1, S2 clear. No murmurs auscultated. ABDOMEN: Soft, nontender, nondistended. No palpable organomegaly is noted. No rebound or guarding demonstrated. BACK: Shows spine grossly in the midline. Normal appearing thoracic kyphosis and lumbar lordotic curvature. Lumbar paraspinous muscle shows symmetrical on inspection, on palpation shows some moderate tenderness, but only diffusely. Well-healed surgical scar is noted in the lumbar distribution as well. The patient has good rotational motion of lumbar spine, both laterally as well as extension and flexion without significant difficulty. EXTREMITIES: The patient's lower extremities show deep tendon reflexes 1+ in the patellar and tendo-calcaneus tendons are equal. Motor exam is strong with 4/5 but symmetrical and this is true with dorsiflexion, extension, quadriceps and hamstring flexion and symmetrical bilaterally. Peripheral pulses are 1+ posterior tibia. No peripheral edema is noted. Options were discussed with the patient. The patient's old chart was reviewed as his current medication regimen updated. Current review of systems updated today as well. We will proceed with a third in the series of lumbar epidural steroid injection today with fluoroscopic guidance. Risks were again discussed including, but not limited to bleeding, infection, possibility of epidural hematoma, subsequent neurological compromise, dural puncture, headaches, spinal cord and/or nerve damage, side effects of steroid medication and poor results regarding pain control. The patient understands and wished to proceed. The patient will return to the clinic in approximately 2 weeks for followup, was counseled on return appointment, activity level and side effects to be aware of. DIAGNOSIS: Lumbar radiculopathy with lumbar spinal stenosis, lumbar degenerative disk disease and post-lumbar laminectomy syndrome. PROCEDURE: Lumbar epidural steroid injection, translaminar approach at L3-L4 level using C-arm fluoroscopic guidance under sterile prep and drape using local anesthetic. MEDICATION INJECTED: A total of 120 mg Depo-Medrol plus 10 mL of preservative-free normal saline and 2 mL of Isovue for contrast. CONDITION AT DISCHARGE: Stable. The patient tolerated the procedure well, had no complications. CARIE JUNE MD DR: MARY/chas JOB#: [id number] / [id number]
== END ==
LOC: PNCL 10:52
PROVIDERS: ATTEND Anesthesiology
DX: M51.16 Intervertebral disc disorders with radiculopathy, lumbar region (principal); M48.061 Spinal stenosis, lumbar region without neurogenic claudication; M96.1 Postlaminectomy syndrome, not elsewhere classified
CPT/HCPCS: 62323; J1030; J1040; Q9965

== ENCOUNTER 2018-05-04 19:03 | Emergency (ER) | payer MEDICARE, OTHER ==
[~2018-05-04] VITALS: Ht 182.9 cm; Wt 99.8 kg
[~2018-05-04 19:03] MED LIST changes: -IOHEXOL 180 MG/ML 10 ML VIAL. ONE; -methylPREDNISolone ACETATE 40 MG/ML VIAL. ONE; -methylPREDNISolone ACETATE 80 MG/ML VIAL. ONE
--- NOTE | 2018-05-04 19:27 | PHYS DOC ---
Past Medical History Past Medical History: A-Fib, COPD, Diabetes-Type II, Hypertension Additional Past Medical Histor: CARDIAC [id number] (DIEGO CASTLE APRN) Past Surgical History: Other Additional Past Surgical Histo: BILAT BIG TOES, CATARACT, BACK SURG (DIEGO CASTLE APRN) Alcohol Use: None Drug Use: Opiates (DIEGO CASTLE APRN) Adult General Chief Complaint Chief Complaint: MECHANICAL FALL HPI HPI Patient is a 78 year old male with history of A. fib, diabetes type 2, high cholesterol, who presents today to be evaluated status post falling at 1430. 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 Patient denies any loss of consciousness. He states he hit his back on the ground. He states he is on an aspirin 81 mg daily. He is complaining of 10 out of 10 posterior head pain, posterior neck pain, upper, mid and low back pain. Patient states the pain is sharp and intermittent worse on certain movements. Patient states he took hydrocodone at home with minimal relief. Patient denies any weakness. Denies any pain radiating to bilateral lower extremities. He states he has history of lumbar surgery. (DIEGO CASTLE APRN) Review of Systems Review of Systems Constitutional: Denies fever or chills [] Eyes: Denies change in visual acuity, redness, or eye pain [] HENT: Denies nasal congestion or sore throat [] Respiratory: Denies cough or shortness of breath [] Cardiovascular: No additional information not addressed in HPI [] GI: Denies abdominal pain, nausea, vomiting, bloody stools or diarrhea [] : Denies dysuria or hematuria [] Musculoskeletal: Reports upper back pain, mid back pain,and low back surgery Integument: Denies rash or skin lesions [] Neurologic: Reports posterior head pain, denies focal weakness or sensory changes [] All other systems were reviewed and found to be within normal limits, except as documented in this note. (DIEGO CASTLE APRN) Current Medications Current Medications Current Medications Medications (Trade) Dose Ordered Sig/Dejuan Start Time Stop Time Status Last Admin Dose Admin Albuterol/ Ipratropium (Duoneb) 3 ml 1X ONCE 05/04/18 21:45 05/04/18 21:47 DC 05/04/18 21:43 3 ML Diazepam (Valium) 5 mg 1X ONCE 05/04/18 19:30 05/04/18 19:31 DC 05/04/18 19:32 5 MG ([facility]) Allergies Allergies Allergies Coded Allergies Type Severity Reaction Last Updated Verified Zmihywr-Lum-Dus Reductase Inhibitor Allergy Intermediate 03/16/14 Yes (MENA BAUTISTA APRN) Physical Exam Physical Exam Constitutional: Well developed, well nourished, no acute distress, non-toxic appearance. [] HENT: Normocephalic, atraumatic, bilateral external ears normal, oropharynx moist, no oral exudates, nose normal. [] Eyes: PERRLA, EOMI, conjunctiva normal, no discharge. [] Neck: Normal range of motion, slight paraspinal muscle tenderness to posterior cervical spine with mild midline tenderness, supple, no stridor. [] Cardiovascular:Heart rate regular rhythm, no murmur [] Lungs & Thorax: Bilateral breath sounds clear to auscultation [] Abdomen: Bowel sounds normal, soft, no tenderness, no masses, no pulsatile masses. [] Skin: Warm, dry, no erythema, no rash. [] Back: Diffuse paraspinal muscle tenderness to thoracic spine, mild mid thoracic spine tenderness, slight midline lumbar spine tenderness, no CVA tenderness. [] Extremities: No tenderness, no cyanosis, no clubbing, ROM intact, no edema. [] Neurologic: Alert and oriented X 3, normal motor function, normal sensory function, no focal deficits noted. Cranial nerves II through XII intact Psychologic: Affect normal, judgement normal, mood normal. [] ([facility]) Current Patient Data Vital Signs Vital Signs Date Time Temp Pulse Resp B/P (MAP) Pulse Ox O2 Delivery O2 Flow Rate FiO2 05/04/18 22:00 88 20 90 05/04/18 21:45 Room Air 05/04/18 19:07 98.0 157/75 (102) 98.0 ([facility] DIRECT[facility]) Lab Values Laboratory Tests Test 05/04/18 21:46 White Blood Count 5.7 x10^3/uL (4.0-11.0) Red Blood Count 4.52 x10^6/uL (4.30-5.70) Hemoglobin 14.1 g/dL (13.0-17.5) Hematocrit 43.9 % (39.0-53.0) Mean Corpuscular Volume 97 fL (79-100) Mean Corpuscular Hemoglobin 31 pg (25-35) Mean Corpuscular Hemoglobin Concent 32 g/dL (31-37) Red Cell Distribution Width 15.7 % (11.5-14.5) H Platelet Count 81 x10^3/uL (140-400) L Neutrophils (%) (Auto) 78 % (31-73) H Lymphocytes (%) (Auto) 10 % (24-48) L Monocytes (%) (Auto) 11 % (0-9) H Eosinophils (%) (Auto) 0 % (0-3) Basophils (%) (Auto) 1 % (0-3) Neutrophils # (Auto) 4.5 x10^3uL (1.8-7.7) Lymphocytes # (Auto) 0.6 x10^3/uL (1.0-4.8) L Monocytes # (Auto) 0.6 x10^3/uL (0.0-1.1) Eosinophils # (Auto) 0.0 x10^3/uL (0.0-0.7) Basophils # (Auto) 0.0 x10^3/uL (0.0-0.2) Prothrombin Time 14.6 SEC (11.7-14.0) H Prothrombin Time INR 1.2 (0.8-1.1) H PTT 27 SEC (24-38) Sodium Level 142 mmol/L (136-145) Potassium Level 3.6 mmol/L (3.5-5.1) Chloride Level 101 mmol/L (98-107) Carbon Dioxide Level 32 mmol/L (21-32) Anion Gap 9 (6-14) Blood Urea Nitrogen 8 mg/dL (8-26) Creatinine 0.8 mg/dL (0.7-1.3) Estimated GFR (Cockcroft-Gault) 93.3 BUN/Creatinine Ratio 10 (6-20) Glucose Level 161 mg/dL (70-99) H Calcium Level 9.5 mg/dL (8.5-10.1) Total Bilirubin 0.8 mg/dL (0.2-1.0) Aspartate Amino Transferase (AST) 45 U/L (15-37) H Alanine Aminotransferase (ALT) 27 U/L (16-63) Alkaline Phosphatase 91 U/L (46-116) Total Protein 6.4 g/dL (6.4-8.2) Albumin 3.0 g/dL (3.4-5.0) L Albumin/Globulin Ratio 0.9 (1.0-1.7) L Laboratory Tests 05/04/18 21:46 Laboratory Tests 05/04/18 21:46 (TRIPBONIFACIODebbieMENA Abarca APRN) EKG EKG [] (DIEGO CASTLE APRN) Radiology/Procedures Radiology/Procedures [] (DIEGO CASTLE APRN) Radiology/Procedures PROCEDURE: CT HEAD AND CERVICAL SPINE WO EXAM: CT HEAD WITHOUT IV CONTRAST CLINICAL HISTORY: fall, FLAT ON BACK AROUND 1430 TODAY. s COMPARISON: None. TECHNIQUE: Routine CT of the head without contrast. Soft tissues and bone windows were reviewed. PQRS compliance statement - One or more of the following individualized dose reduction techniques were utilized for this study: 1. Automated exposure control 2. Adjustment of the mA and/or kV according to patient size 3. Use of iterative reconstruction technique FINDINGS: A right frontal dural based high density structure is seen measuring 2.5 x 1.6 cm. Given the location, subdural hematoma may have similar appearance. However this may also represent a meningioma given the shape. No definite associated parenchymal edema or mass effect or midline shift. Otherwise, there is no evidence of hemorrhage, mass or extra-axial fluid collection. Godoy-white differentiation is maintained with no evidence of edema. There is no mass effect or shift of the intracranial structures. The ventricles, basilar cisterns and cortical sulci are normal in size and configuration for the patients stated age. The cerebellum and brainstem are unremarkable. The calvarium demonstrates no evidence of fracture or focal lesion. Bilateral maxillary sinus opacities likely sinusitis. There is normal aeration of the mastoid air cells. The visualized portions of the orbits are normal. IMPRESSION: 1. High density structure along the right frontal region adjacent to the falx may represent a subdural hematoma although a dural based mass such as meningioma may have similar appearance. No definite associated mass effect. Consider short interval follow-up or evaluation with MRI as clinically indicated. 2. Maxillary sinus opacities, likely sinusitis. EXAM: CT CERVICAL SPINE WITHOUT IV CONTRAST CLINICAL HISTORY: fall, FLAT ON BACK AROUND 1430 TODAY. COMPARISON: None available. TECHNIQUE: Helical CT of the cervical spine was performed. Axial, coronal and sagittal reformatted images were also performed. PQRS compliance statement - One or more of the following individualized dose reduction techniques were utilized for this study: 1. Automated exposure control 2. Adjustment of the mA and/or kV according to patient size 3. Use of iterative reconstruction technique FINDINGS: Vertebral body heights are preserved. Moderate C5-6, C6-7 intervertebral disc height loss. Associated anterior posterior plane osteophytes are seen at multiple levels. Trace anterolisthesis of C5 on C6. Multilevel degenerative changes of the spine are seen. C2-3: No significant central canal stenosis or neural foraminal narrowing. C3-4: Diffuse posterior disc osteophyte complex with facet degenerative changes and uncovertebral hypertrophy results in moderate central canal stenosis, moderate left and moderate right neural foraminal narrowing. C4-5: Posterior disc osteophyte complex with left greater than right uncovertebral hypertrophy and facet degenerative changes likely represents mild central canal stenosis and moderate left and mild right neural foraminal narrowing. C5-6: anterolisthesis of C5 on C6 with posterior disc osteophyte complex, facet degenerative changes and ligamentum flavum hypertrophy results in moderate central canal stenosis, mild left and moderate right neural foraminal narrowing C6-7: Posterior disc osteophyte complex with facet degenerative changes uncovertebral hypertrophy results in moderate to severe central canal stenosis and moderate bilateral neural foraminal narrowing. C7-T1: No significant central canal stenosis or neural foraminal narrowing. IMPRESSION: 1. No evidence for acute fracture or subluxation. 2. Multilevel degenerative changes as above. Electronically signed by: Roge Arizmendi MD (05/04/2018 8:31 PM) [facility] DICTATED and SIGNED BY: ROGE ARIZMENDI MD DATE: 05/04/182017 PROCEDURE: CT LUMBAR SPINE WO CONTRAST CLINICAL HISTORY: fall, FLAT ON BACK AROUND 1430 TODAY. COMPARISON: None available. TECHNIQUE: This CT study consists of contiguous axial images performed through the thoracic and lumbar spine. Axial, sagittal and coronal reformatted images were also performed. FINDINGS: Thoracic spine: Aortic calcifications and mitral annular calcifications are seen. There is normal alignment of the spine. There is preservation of height of the vertebral bodies with normal bone density. Bulky anterior endplate osteophytes flowing anteriorly, DISH. The height of the intervertebral discs is maintained. There is no evidence of osseous spinal canal or neural foraminal stenosis. Lumbar spine: There is normal alignment of the spine. Vertebroplasty changes are seen at L2. There is preservation of height of the vertebral bodies. Decreased bone density. The height of the intervertebral discs is maintained. There is no evidence of osseous spinal canal or neural foraminal stenosis. Aortic calcifications are seen. IMPRESSION: No evidence of acute thoracic or lumbar spine fracture or subluxation Dense aortic calcifications are seen. Decreased bone mineral density. Electronically signed by: Roge Arizmendi MD (05/04/2018 8:43 PM) [facility] DICTATED and SIGNED BY: ROGE ARIZMENDI MD DATE: 05/04/182030 (MENA BAUTISTA APRN) Course & Med Decision Making Course & Med Decision Making Pertinent Labs and Imaging studies reviewed. (See chart for details) This is a 78-year-old male patient presenting to the ED today to be evaluated status post falling. Patient is complaining of posterior head pain, neck pain, upper back pain, patient also has slight tenderness to the lumbar spine on exam. 1959 Care transferred to [facility]rien[facility]aut[facility] [employer] (DIEGO CASTLE APRN) Course & Med Decision Making 1999: Assumed care of pt- CTs pending. Pt is A&Ox3 with ongoing c/o mid to lower back pain. Pt denies ISAAC/dizziness or vision changes currently. He reports he did have episode of dizziness after arriving to ER and has had intermittent nausea. He reports his had nausea medication Zofran ODT and so he took 2 of those since arriving to ER- he reports still feeling slightly nauseated. Pt is no visible distress at this time. Resp. equal/nonlabored. is at bedside. 2100: On re-evaluation pt reports he is still feeling slightly nauseated- he hasn't had any additional dizzy episodes. He remains A&Ox3. Discussed CT results with pt and his with CSpine/thoracic and lumbar images neg. for acute findings- degenerative findings noted. Discussed head CT report noting "High density structure along the right frontal region adjacent to the falx may represent a subdural hematoma although a dural based mass such as meningioma may have similar appearance. No definite associated mass effect". Pt reports he has been evaluated by neurosurg. as they had found meningioma on previous imaging- he is uncertain of the location. Pt reports his neurosurg. is Dr. Hewitt- who is currently on vacation. Pt reports he has been seen by Dr. Beto Jovel at [facility] in the past and that's when they found the meningioma. With report inconclusive on subdural hematoma vs meningioma call placed to pt's PCP Dr. Rausch to discuss admission to [facility] without neurosurg. coverage. 2114: Spoke with Dr. Pinzon, strategy consultant for pt's PCP Dr. Rausch- discussed pt's case and test results. Without neurosurg. he is wanting pt to be transferred to [facility] per pt's request for Hosp. choices as they have neurosurg. This was discussed with pt and his - he is agreeable with transfer plan for further care and monitoring. Pt has hx of COPD and is requesting resp. tx- will provide tx while waiting on transfer. Pt has equal/ nonlabored resp. Speaking in full sentences. Lung sounds clear bilat. upper lobes- no wheezing/rhonchi- diminished in bases. 2123: Call placed to Transfer line at [facility] spoke with Evangelina in communication. Order placed for IV and labs. Request for imaging to sent via [facility] and CD made for transport placed with radiology. 2139: Call returned from [facility] and spoke with Dr. Edwige Faith, hospitalist and discussed pt's case along with transfer to their facility for further care/monitoring. Dr. Faith expressed dislike on pt being transfer as she felt this facility could obtain MRI to further r/o subdural hematoma vs meningioma. Further discussed with pt having intermittent nausea and inconclusive finding on CT pt would need further monitoring and as [facility] currently has no neurosurg. coverage Dr. Pinzon wanted him transferred to facility where neurosurg. was available. With further discussion Dr. Faith accepted pt. for transfer. Discussed transfer plan with pt and his - both agreeable to plan. Pt reports following Duoneb tx his breathing had improved. He has increased air movement throughout all lung brooks. Resp. equal/nonlabored. Pt has had no change in neuro status since assuming care at 1999- he remains nontoxic in appearance and in no distress as plan of care was discussed. Pt's case and transfer plan was discussed with Dr. Restrepo. (MENA BAUTISTA APRN) Benedict Disclaimer Dragon Disclaimer This electronic medical record was generated, in whole or in part, using a voice recognition dictation system. (DIEGO CASTLE APRN) Departure Departure Impression: Primary Impression: Fall from standing Additional Impressions: Head injury consultation Thoracic back pain Disposition: 05 TRANSFER OTHER ([facility]) Condition: STABLE Referrals: Jose RAUSCH MD (PCP) Problem Qualifiers Primary Impression: Fall from standing Encounter type: initial encounter Qualified Codes: W19.XXXA - Unspecified fall, initial encounter DIEGO CASTLE APRN May 04, 2018 19:27 MENA BAUTISTA APRN May 04, 2018 23:35
[2018-05-04] MEDS ORDERED: diazePAM 5 MG TABLET PO ONE (19:30)
--- NOTE | 2018-05-04 20:36 | RAD ---
EXAM: CT HEAD WITHOUT IV CONTRAST CLINICAL HISTORY: fall, FLAT ON BACK AROUND 1430 TODAY. s COMPARISON: None. TECHNIQUE: Routine CT of the head without contrast. Soft tissues and bone windows were reviewed. PQRS compliance statement - One or more of the following individualized dose reduction techniques were utilized for this study: 1. Automated exposure control 2. Adjustment of the mA and/or kV according to patient size 3. Use of iterative reconstruction technique FINDINGS: A right frontal dural based high density structure is seen measuring 2.5 x 1.6 cm. Given the location, subdural hematoma may have similar appearance. However this may also represent a meningioma given the shape. No definite associated parenchymal edema or mass effect or midline shift. Otherwise, there is no evidence of hemorrhage, mass or extra-axial fluid collection. Godoy-white differentiation is maintained with no evidence of edema. There is no mass effect or shift of the intracranial structures. The ventricles, basilar cisterns and cortical sulci are normal in size and configuration for the patients stated age. The cerebellum and brainstem are unremarkable. The calvarium demonstrates no evidence of fracture or focal lesion. Bilateral maxillary sinus opacities likely sinusitis. There is normal aeration of the mastoid air cells. The visualized portions of the orbits are normal. IMPRESSION: 1. High density structure along the right frontal region adjacent to the falx may represent a subdural hematoma although a dural based mass such as meningioma may have similar appearance. No definite associated mass effect. Consider short interval follow-up or evaluation with MRI as clinically indicated. 2. Maxillary sinus opacities, likely sinusitis. EXAM: CT CERVICAL SPINE WITHOUT IV CONTRAST CLINICAL HISTORY: fall, FLAT ON BACK AROUND 1430 TODAY. COMPARISON: None available. TECHNIQUE: Helical CT of the cervical spine was performed. Axial, coronal and sagittal reformatted images were also performed. PQRS compliance statement - One or more of the following individualized dose reduction techniques were utilized for this study: 1. Automated exposure control 2. Adjustment of the mA and/or kV according to patient size 3. Use of iterative reconstruction technique FINDINGS: Vertebral body heights are preserved. Moderate C5-6, C6-7 intervertebral disc height loss. Associated anterior posterior plane osteophytes are seen at multiple levels. Trace anterolisthesis of C5 on C6. Multilevel degenerative changes of the spine are seen. C2-3: No significant central canal stenosis or neural foraminal narrowing. C3-4: Diffuse posterior disc osteophyte complex with facet degenerative changes and uncovertebral hypertrophy results in moderate central canal stenosis, moderate left and moderate right neural foraminal narrowing. C4-5: Posterior disc osteophyte complex with left greater than right uncovertebral hypertrophy and facet degenerative changes likely represents mild central canal stenosis and moderate left and mild right neural foraminal narrowing. C5-6: anterolisthesis of C5 on C6 with posterior disc osteophyte complex, facet degenerative changes and ligamentum flavum hypertrophy results in moderate central canal stenosis, mild left and moderate right neural foraminal narrowing C6-7: Posterior disc osteophyte complex with facet degenerative changes uncovertebral hypertrophy results in moderate to severe central canal stenosis and moderate bilateral neural foraminal narrowing. C7-T1: No significant central canal stenosis or neural foraminal narrowing. IMPRESSION: 1. No evidence for acute fracture or subluxation. 2. Multilevel degenerative changes as above. Electronically signed by: Roge Gunn MD (05/04/2018 8:31 PM) [facility]
--- NOTE | 2018-05-04 20:48 | RAD ---
CLINICAL HISTORY: fall, FLAT ON BACK AROUND 1430 TODAY. COMPARISON: None available. TECHNIQUE: This CT study consists of contiguous axial images performed through the thoracic and lumbar spine. Axial, sagittal and coronal reformatted images were also performed. FINDINGS: Thoracic spine: Aortic calcifications and mitral annular calcifications are seen. There is normal alignment of the spine. There is preservation of height of the vertebral bodies with normal bone density. Bulky anterior endplate osteophytes flowing anteriorly, DISH. The height of the intervertebral discs is maintained. There is no evidence of osseous spinal canal or neural foraminal stenosis. Lumbar spine: There is normal alignment of the spine. Vertebroplasty changes are seen at L2. There is preservation of height of the vertebral bodies. Decreased bone density. The height of the intervertebral discs is maintained. There is no evidence of osseous spinal canal or neural foraminal stenosis. Aortic calcifications are seen. IMPRESSION: No evidence of acute thoracic or lumbar spine fracture or subluxation Dense aortic calcifications are seen. Decreased bone mineral density. Electronically signed by: Roge Gunn MD (05/04/2018 8:43 PM) [facility]
[2018-05-04] MEDS ORDERED: IPRATRPIUM/ALBUTEROL 0.5/2.5MG 3 ML NEBU. NEB ONE (21:45)
[2018-05-04 21:53] LABS: BASO % 1 % (0-3); EOS % 0 % (0-3); HEMATOCRIT 43.9 % (39.0-53.0); HEMOGLOBIN 14.1 g/dL (13.0-17.5); LYMPH # 0.6 x10^3/uL (1.0-4.8); LYMPH % 10 % (24-48); MEAN CORPUSCULAR HEMOGLOBIN 31 pg (25-35); MEAN CORPUSCULAR HGB CONC 32 g/dL (31-37); MEAN CORPUSCULAR VOLUME 97 fL (79-100); MONO # 0.6 x10^3/uL (0.0-1.1); MONO % 11 % (0-9); NEUT # 4.5 x10^3uL (1.8-7.7); NEUT % 78 % (31-73); PLATELET COUNT 81 x10^3/uL (140-400); RED BLOOD COUNT 4.52 x10^6/uL (4.30-5.70); RED CELL DISTRIBUTION WIDTH 15.7 % (11.5-14.5); WHITE BLOOD COUNT 5.7 x10^3/uL (4.0-11.0)
[2018-05-04 22:00] VITALS: BP 160/74
[2018-05-04 22:02] LABS: CALCIUM 9.5 mg/dL (8.5-10.1); CREATININE 0.8 mg/dL (0.7-1.3); GFR 93.3; POTASSIUM 3.6 mmol/L (3.5-5.1); PROTHROMBIN TIME PATIENT 14.6 SEC (11.7-14.0)
[2018-05-04 22:07] LABS: ALBUMIN/GLOBULIN RATIO 0.9 (1.0-1.7); TOTAL BILIRUBIN 0.8 mg/dL (0.2-1.0); TOTAL PROTEIN 6.4 g/dL (6.4-8.2)
== END 2018-05-04 23:53 | disposition short-term general hospital (02) ==
LOC: ER 19:03
DX: S09.8XXA Other specified injuries of head, initial encounter (principal); M54.2 Cervicalgia; M54.5 Low back pain; M54.6 Pain in thoracic spine; I48.91 Unspecified atrial fibrillation; J44.9 Chronic obstructive pulmonary disease, unspecified; E11.9 Type 2 diabetes mellitus without complications; I10 Essential (primary) hypertension; E78.00 Pure hypercholesterolemia, unspecified; Z88.8 Allergy status to other drugs, medicaments and biological substances; W18.39XA Other fall on same level, initial encounter; Y93.89 Activity, other specified; Y92.89 Other specified places as the place of occurrence of the external cause; Y99.8 Other external cause status
CPT/HCPCS: 36415; 70450; 72125; 72128; 72131; 80053; 85025; 85610; 85730; 94640; 99285; J7620

== ENCOUNTER → 2018-07-18 | Outpatient (CLI) | payer MEDICARE, OTHER ==
[~2018-07-18] MED LIST changes: -CAPS42.510 TP; +CAPS42.513 TP; +LEVE500T6 PO; +OMEP20CA10 PO; -OMEP20CA9 PO
--- NOTE | 2018-07-18 12:55 | KCIC ---
MRI Lumbar Spine without contrast History: Low back pain, stenosis, bilateral leg numbness, previous surgery Technique: Multiplanar, multi sequential noncontrast MR imaging was performed of the lumbar spine. Comparison: CT exam 05/04/2018 and lumbar spine exam December 25, 2017 Findings: There is some motion degradation. There again has been vertebroplasty at L2. Lumbar vertebral body stature is similar. There are multilevel small Schmorl's nodes. There is again very mild grade 1 anterior spondylolisthesis L3-4, negligible anterior spondylolisthesis at L1-L2. Conus terminates at T12-L1. There is again advanced degenerative disc disease at L4-5, to lesser degree at other levels. There is mild edema of the endplates L2-3 through L4-5 as seen previously, likely reactive/degenerative in etiology. Not fully evaluated, there is mild aneurysmal dilatation of the visualized infrarenal abdominal aorta about 3.2 cm. There are T2 hyperintense foci of the visualized kidneys greater in size on the left, statistically more likely cysts. L1-L2: There is blak-rs-ikrspjqp facet degenerative change and minimal buckling of the ligamentum flavum. There is negligible bulge. 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 Neural foramina and spinal canal are adequate. L2-L3: There is minimal disc osteophyte complex and bulge. There is again moderate facet hypertrophic change and mild to moderate buckling of the ligamentum flavum. There is similar mild narrowing of the far lateral recesses greater on the left. There is again moderate left and mild right neural foramina compromise. L3-L4: There is again moderate to severe facet degenerative change and moderate buckling of the ligamentum flavum. There is prominence of posterior epidural fat. There is again disc osteophyte complex and bulge. Combination of findings results in moderate spinal stenosis as seen previously, right greater than left lateral recess stenosis with contact of the descending L4 nerve roots. There is mild right greater than left neural foramina compromise. Bulge/protrusion is near the undersurface of exiting right L3 nerve root in the distal neural foramen and proximal extraforaminal region as seen previously. L4-L5: There is again disc osteophyte complex and bulge. There is again left laminectomy defect. There is facet degenerative change and buckling of the ligamentum flavum. There is again ygik-ke-nvklhzdu narrowing of the far lateral recesses bilaterally somewhat greater on the left. There is zpao-me-mokrpafe right and moderate left neural foramina compromise as seen previously. L5-S1: There is again fairly severe right facet degenerative change, to lesser degree on the left. There is very minimal disc osteophyte complex and bulge as seen previously. There is again quru-tp-kazkrtbj narrowing of the far left lateral recess with contact of the descending left S1 nerve root. There is again moderate narrowing of the more distal left neural foramen with disc osteophyte complex contacting the exiting left L5 nerve root in the distal neural foramen and proximal extraforaminal region as seen previously. Right neural foramen is overall adequate. Impression: 1. Findings are similar compared with December 2017 exam. There is again moderate spinal stenosis with right greater than left lateral recess stenosis at L3-4, other variable lateral recess stenosis as described such as bilaterally at L4-5 and on the left at L5-S1, also minimal narrowing greater on the left at L2-3. 2. There is again multilevel yvix-sg-yldtkkdw neural foramina compromise as described greatest on the left at L5-S1 and L2-3 and bilaterally at L4-L5. 3. There is multilevel degenerative disc disease greatest at L4-5. There is multilevel mild abnormal alignment, multilevel facet degenerative change. 4. Not fully evaluated, there is mild aneurysmal dilatation of the infrarenal abdominal aorta. There are T2 hyperintense foci of the visualized kidneys more likely be due to cysts although not fully evaluated. Electronically signed by: Tutu Gallego MD (07/18/2018 12:52 PM) [facility]
== END | disposition home or self-care (01) ==
LOC: KCIC MRI 11:17
PROVIDERS: ATTEND Neurological Surgery
DX: M48.061 Spinal stenosis, lumbar region without neurogenic claudication (principal); M48.07 Spinal stenosis, lumbosacral region; M51.36 Other intervertebral disc degeneration, lumbar region; M25.78 Osteophyte, vertebrae; M43.16 Spondylolisthesis, lumbar region; M51.46 Schmorl's nodes, lumbar region
CPT/HCPCS: 72148

== ENCOUNTER 2018-08-27 08:00 | Outpatient (CLI) | payer MEDICARE, OTHER ==
[2018-08-27] VITALS (13 sets, daily range): BP systolic 111–139; BP diastolic 55–87
[~2018-08-27] VITALS: Ht 182.9 cm; Wt 101.6 kg
[~2018-08-27 08:00] MED LIST changes: -LEVE500T6 PO
[2018-08-27 08:20] LABS: BASO % 1 % (0-3); EOS # 0.1 x10^3/uL (0.0-0.7); EOS % 4 % (0-3); HEMATOCRIT 44.9 % (39.0-53.0); HEMOGLOBIN 14.9 g/dL (13.0-17.5); LYMPH # 1.5 x10^3/uL (1.0-4.8); LYMPH % 36 % (24-48); MEAN CORPUSCULAR HEMOGLOBIN 32 pg (25-35); MEAN CORPUSCULAR HGB CONC 33 g/dL (31-37); MEAN CORPUSCULAR VOLUME 98 fL (79-100); MONO # 0.6 x10^3/uL (0.0-1.1); MONO % 14 % (0-9); NEUT # 1.9 x10^3uL (1.8-7.7); NEUT % 46 % (31-73); PLATELET COUNT 121 x10^3/uL (140-400); RED CELL DISTRIBUTION WIDTH 15.6 % (11.5-14.5); WHITE BLOOD COUNT 4.1 x10^3/uL (4.0-11.0)
[2018-08-27 08:29] LABS: PROTHROMBIN TIME PATIENT 13.7 SEC (11.7-14.0)
[2018-08-27] MEDS ORDERED: LEVE500T6 PO (08:29)
[2018-08-27] MEDS ORDERED: LIDOCAINE WITH 8.4% SOD BICARB 3 ML DISP.SYRIN. ONE (09:55)
[2018-08-27] MEDS ORDERED: MIDAZOLAM HCL/PF 2 MG/2 ML VIAL. ONE (10:04)
[2018-08-27] MEDS ORDERED: fentaNYL PF VIAL 100 MCG/2 ML VIAL ONE (10:04)
--- NOTE | 2018-08-27 10:39 | PDOC1 ---
History and Physical Date of Procedure Date of Admission History of Present Illness Reason for Visit Adult male with thrombocytopenia Past Medical History Past Medical History see nursing pre-op assessment Current Medications Current Medications Current Medications Lidocaine/Sodium Bicarbonate (Buffered Lidocaine 1%) 3 ml STK-MED ONCE .ROUTE ; Start 08/27/18 at 09:55; Stop 08/27/18 at 09:56; Status DC Midazolam HCl (Versed) 2 mg STK-MED ONCE .ROUTE ; Start 08/27/18 at 10:04; Stop 08/27/18 at 10:05; Status DC Fentanyl Citrate (Fentanyl 2ml Vial) 100 mcg STK-MED ONCE .ROUTE ; Start 08/27/18 at 10:04; Stop 08/27/18 at 10:05; Status DC Lidocaine/Sodium Bicarbonate (Buffered Lidocaine 1%) 12 ml 1X ONCE IJ ; Start 08/27/18 at 10:45; Stop 08/27/18 at 10:46; Status UNV Midazolam HCl (Versed) 2 mg 1X ONCE IV ; Start 08/27/18 at 10:45; Stop 08/27/18 at 10:46; Status UNV Fentanyl Citrate (Fentanyl 2ml Vial) 50 mcg 1X ONCE IV ; Start 08/27/18 at 10:45; Stop 08/27/18 at 10:46; Status UNV Active Scripts Active Reported Levetiracetam 500 Mg Tablet 750 Mg PO BID Hydrocodone-Apap 5-325 (Hydrocodone Bit/Acetaminophen) 1 Each Tablet 1 Tab PO PRN Q6HRS PRN Magnesium (Magnesium Amino Acid Chelate) 27 Mg Tablet 27 Mg PO DAILY Glucosamine & Chondroitin Cap (Gluc 2KCL/Chondr/Mara Hy/Hy Ac) 1 Each Capsule 1 Each PO DAILY Furosemide 40 Mg Tablet 1 Tab PO DAILY Metoprolol Tartrate 50 Mg Tablet 1 Tab PO BID Diltiazem 24HR Cd (Diltiazem Hcl) 120 Mg Cap.er.24h 1 Cap PO DAILY Maximum Daily Multivitamin (Multivit With Calcium,Iron,Min) 1 Each Tablet 1 Each PO Fish Oil ([place]-3 Fatty Acids) 300 Mg Capsule 1,000 Mg PO DAILY Tamsulosin Hcl 0.4 Mg Cap.er.24h 1 Cap PO DAILY K-Tab ER (Potassium Chloride) 20 Meq Tablet.er 10 Meq PO BID Omeprazole 20 Mg Capsule.dr 1 Cap PO DAILY Vitamin D (Cholecalciferol (Vitamin D3)) 1,000 Unit Tablet 2,000 Unit PO DAILY Capsaicin 42.5 Gm Cream..g. 42.5 Gm TP QODAY Allopurinol 100 Mg Tablet 200 Tab PO DAILY Albuterol Sulfate Hfa Inhaler (Albuterol Sulfate) 8.5 Gm Hfa.aer.ad 2 Puff INH Q4HRS Albuterol Sulfate Conc Neb Soln (Albuterol Sulfate) 2.5 Mg/0.5 Ml Vial.neb 2.5 Mg NEB Allergies Allergies: Coded Allergies: Yiwjqhb-Hdu-Xhh Reductase Inhibitor (Verified Allergy, Intermediate, 03/16/14) Physical Exam Vital Signs Vital Signs Date Time Temp Pulse Resp B/P (MAP) Pulse Ox O2 Delivery O2 Flow Rate FiO2 08/27/18 10:31 84 20 99 Nasal Cannula 2.0 08/27/18 08:57 97.8 112/63 (79) 97.8 Other see nursing pre-op assessment Assessment Assessment Thrombocytopenia Plan Plan CT Bone Marrow Biopsy KHOA LAWSON MD August 27, 2018 10:39
--- NOTE | 2018-08-27 10:41 | PDOC ---
BRIEF OPERATIVE NOTE Pre-Op Diagnosis Thrombocytopenia Post-Op Diagnosis same Procedure Performed CT Bone Marrow Biopsy Surgeon Ming Anesthesia Type: Conscious Sedation Specimens Obtained 2 x 3cc aspirates and 1 x 10g core Complications No immediate KHOA LAWSON MD August 27, 2018 10:41
--- NOTE | 2018-08-27 10:43 | PDOC ---
MODERATE SEDATION ASSESSMENT RISKS/ALTERNATIVES Risks/Alternatives Risks and alternatives of this type of sedation and procedure discussed with: RISK/ALTERNATIVES: Patient H & P ON CHART H & P H & P on chart and reviewed for co-morbid conditions and appropriate labs. H&P ON CHART: Yes STATUS PREG STATUS ASSESSED: Yes MEDS/ALLERGIES REVIEWED Meds/Allergies Reviewed Medications and Allergies including time and route of recently administered narcotics and sedatives. MEDS/ALLERGIES REVIEWED: Yes ASA RATING ASA RATING: II AIRWAY ASSESSMENT Airway Assessment Airway patency, oral function limitations, presence of caps, crowns, dentures, partials, and ability to extend neck assessed. AIRWAY ASSESSMENT: Yes MALLAMPATI SCORE MALLAMPATI SCORE: II PRE-SEDATION ASSESSMENT PRE-SEDATION ASSESSMENT: Yes KHOA LAWSON MD August 27, 2018 10:43
[2018-08-27] MEDS ORDERED: fentaNYL PF VIAL 100 MCG/2 ML VIAL IV ONE (10:45)
[2018-08-27] MEDS ORDERED: LIDOCAINE WITH 8.4% SOD BICARB 3 ML DISP.SYRIN. IJ ONE (10:45)
[2018-08-27] MEDS ORDERED: MIDAZOLAM HCL/PF 2 MG/2 ML VIAL. IV ONE (10:45)
--- NOTE | 2018-08-27 12:45 | NUR ---
Client discharged to home accompanied by his friend in a private vehicle. All discharge instructions reviewed with the client. The client verbalized an understanding of discharge instructions. All personal belongings taken with the client ( glasses, wallet, etc.). Client escorted to outpatient entrance per w/.c no complaints of pain or discomfort noted. PIV d/eduard
--- NOTE | 2018-08-28 09:04 | RAD ---
Procedure: CT-guided bone marrow aspiration and biopsy Clinical Indication: 78-year-old with thrombocytopenia Sedation: Conscious sedation was administered with a total intraprocedural cdht-cf-siwj time of 10 minutes. The patient was monitored by a qualified independent observer throughout the time of sedation. Please refer to the medical record for exact doses of medications utilized to achieve moderate sedation. Antibiotics: None Fluoro Time: Not applicable Contrast: None Sterility: The procedure was performed in its entirety using appropriate elements of sterile technique. Consent: The procedure was explained in its entirety to the patient or the patients designated event sales representative by a member of the treatment team, including a discussion of the risks, benefits and commonly accepted alternatives to the procedure, as well as the expected consequences of no therapy whatsoever. Discussion of the risks included, but was not limited to, those that are most frequent and those that are rare but possibly severe or life-threatening, as well as the possibility of unforeseen complications. Technique and Findings: Following informed consent, the patient was prepped and draped in usual sterile fashion. Preliminary CT scan of the area of interest was performed. 1% Lidocaine was used to achieve local anesthesia. Under periodic CT surveillance, an 11-gauge needle was advanced through the cortex of the posterior superior iliac spine and 2 separate 2 mL marrow aspirates were obtained and preserved on site by the rn first assistant. A single 11-gauge core biopsy specimen was then obtained and preserved in formalin. The needle was then removed and hemostasis was achieved with manual compression. Complications: No immediate Impression: 1. CT-guided bone marrow aspiration and biopsy as described PQRS Compliance Statement: One or more of the following individualized dose reduction techniques were utilized for this examination: 1. Automated exposure control 2. Adjustment of the mA and/or kV according to patient size 3. Use of iterative reconstruction technique
--- NOTE | 2018-09-02 14:06 | PATHOLOGY ---
[facility] Accession Number: [id number] . 01 Material submitted: . PART A: bone - BONE MARROW BIOPSY PART B: bone - BONE MARROW KOTA PART C: bone - BONE MARROW ASPIRATE SLIDES PART D: bone - PERIPHERAL BLOOD SMEARS PART E: bone - BONE MARROW FLOW . 01 Clinical history: . Thrombocytopenia . 02 Diagnosis: Peripheral smear: - Mild thrombocytopenia. . Bone marrow, aspirate smears, clot section and core biopsy: - Normocellular marrow showing trilineage hematopoiesis, no significant dyspoiesis, adequate megakaryocytes, and mildly increased reticuloendothelial iron stores. (JPM:parker; 09/02/2018) QMS/09/02/2018 . 02 Comment: The peripheral smear shows mild thrombocytopenia. The bone marrow is essentially normocellular and shows trilineage hematopoiesis, no significant dyspoiesis, adequate megakaryocytes, and mildly increased reticuloendothelial iron stores. Flow cytometric analysis shows no immunophenotypic evidence of a lymphoproliferative disorder, acute leukemia, increase in blasts, or plasma cell neoplasm. The etiology of the thrombocytopenia is not readily apparent from the marrow examination. Correlate clinically. (JPM:parker; 09/02/2018) . . Special stains performed: Reticulin stain on A1 and iron stain on B1 and C1. . 02 Electronically signed: . Gregorio Carson MD, Pathologist NPI- [id number] . 01 Gross description: . A. The specimen is received in formalin, labeled "David Coy BM BX". Received is a single needle core of light ontiveros bone measuring 0.6 cm in length by 0.3 cm in diameter. The specimen is submitted entirely in cassette A1, following light decalcification. . B. The specimen is received in formalin, labeled "David Coy, BM aspirate clot". Received is blood coagulum measuring 2.5 x 1.8 x 0.2 cm in aggregate dimensions. The specimen is filtered and entirely submitted in cassette B1. (CAA; 08/27/2018) QA/QAC . 02 Microscopic: . Laboratory Data: The WBC count is 4.1 K/CMM, and the automated WBC differential reveals 46% neutrophils, 36% lymphs, 14% monos, 4% eos, and 1% baso. The RBC count is 4.60 M/CMM, hemoglobin 14.9 G/DL, hematocrit 44.9%, MCV 98 FL, MCH 32 PG, MCHC 33 G/DL, and the RDW is 15.6%. The platelet count is 121 K/CMM. Additional laboratory studies are obtained from Dr. Mathew' office. The PSA is 1.08 NG/ML. The serum copper is 1.05 UG/ML. The vitamin B12 is 320 PG/ML. The methylmalonic acid level is 0.17 NMOL/ML. The serum folate is greater than 23.8 NG/ML. . Peripheral Smear: The peripheral smear is reviewed. The WBC count is borderline low normal. The WBC differential reveals a predominance of segmented neutrophils, with smaller populations of lymphocytes and monocytes and a few eosinophils noted. Neutrophils do not show dysplastic changes. There is no significant neutrophilic left shift. There are no circulating blasts or leukoerythroblastic reaction. The lymphocyte population consists predominantly of small lymphocytes. There are several medium-sized granular lymphocytes and reactive lymphocytes. There is a relative increase of monocytes. Red blood cells predominantly appear normochromic and normocytic. Red blood cells show mild anisocytosis and mild to moderate poikilocytosis comprised predominantly of ovalocytes with a few spiculated red blood cells noted. Platelets are mildly decreased and appear normal in morphology with an occasional large platelet noted. . Aspirate Smears: Two Chu's-stained and one iron-stained aspirate smears are examined. The smears contain multiple marrow particles. The M/E ratio is within normal range. Erythroid maturation predominantly appears normoblastic. There are occasional dysplastic erythroid precursors having irregular nuclear shapes. There are no megaloblastic or overt dysplastic changes noted. Granulopoiesis qualitatively appears normal. There is no significant left shift or dysplastic changes. There is no increase of blasts. Megakaryocytes are present and are occasionally loosely clustered. The megakaryocytes are of variable ploidy. There are scattered small mononuclear megakaryocytes having hypolobated nuclei. Plasma cells are not increased. Lymphocytes are not increased. There are no cells foreign to the marrow. The iron stain shows mildly increased reticuloendothelial iron stores. No ringed sideroblasts are identified. . Bone Marrow Biopsy and Clot Section: Sections of the bone marrow biopsy reveal a segment of bone marrow which is approximately 30% cellular. Sections of the bone marrow clot reveal more numerous marrow particles which range between 20% and 50% cellular. There is trilineage hematopoiesis. There is a good admixture of erythroid and granulocytic precursors which are present in varying stages of maturation. There is no apparent increase of blasts. Megakaryocytes appear adequate and are focally loosely clustered. The megakaryocytes are of variable ploidy. There are scattered small mononuclear megakaryocytes having hypolobate nuclei. 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 There is a small discrete lymphoid aggregate present within the clot section comprised of small lymphocytes. There are no abnormal lymphoid aggregates. Plasma cells are not increased. There are no cells foreign to the marrow. A reticulin stain obtained on the biopsy shows focally increased reticulin fibers in the area of lipogranuloma but otherwise no significant increase of reticulin fibers. An iron stain obtained on the clot section shows focal mildly increased reticuloendothelial iron stores. No ringed sideroblasts are identified. . Special Studies: Bone marrow submitted for flow cytometry has a viability of 98.4%. Granulocytes comprise 86.3% of total cells and show phenotypic evidence of maturation. Monocytes comprise 4.2% of total cells. CD45 dim, CD34 positive cells comprise 1.5% of total cells. Lymphocytes comprise 6.6% of total cells. T-cells comprise 82% of lymphoid cells and show a CD4/CD8 ratio of 1.8. NK-cells comprise 8% of lymphoid cells. Mature B-cells comprise 4% of lymphoid cells and are polyclonal with a kappa:lambda ratio or 1.2. . (JPM:jose/parker; 09/02/2018) . 02 Pathologist provided ICD-10: D69.6, D75.9 . 02 CPT . 769561, 846016, 990112, 764075, 682192, 198569, 157189, 840309 Specimen Comment: A courtesy copy of this report has been sent to Specimen Comment: [phone], , . Specimen Comment: Report sent to ,DR HASSAN / DR MATHEW Performed at: [address], [place] [id number] MD Ramy Hay MD Phone: [phone] Performed at: 02 [facility] [address] [place], [place] [id number] MD Gregorio Carson MD Phone: [phone]
== END 2018-08-27 13:15 | disposition home or self-care (01) ==
LOC: INTRAD 08:00
PROVIDERS: ATTEND Internal Medicine Hematology & Oncology
DX: D69.6 Thrombocytopenia, unspecified (principal); Z88.8 Allergy status to other drugs, medicaments and biological substances
CPT/HCPCS: 36415; 38222; 77012; 85025; 85610; 85730; 88184; 88185; 88237; 88305; 88311; 88313; 99152; C1892; J2250; J3010

== ENCOUNTER → 2018-10-09 | Outpatient (CLI) | payer MEDICARE, OTHER ==
[2018-08-27 12:44] VITALS: BP 111/55
[~2018-10-09] MED LIST changes: +LEVE500T6 PO
[2018-10-09 13:42] LABS: BASO % 0 % (0-3); EOS # 0.1 x10^3/uL (0.0-0.7); EOS % 2 % (0-3); HEMATOCRIT 41.8 % (39.0-53.0); HEMOGLOBIN 13.9 g/dL (13.0-17.5); LYMPH # 0.9 x10^3/uL (1.0-4.8); LYMPH % 16 % (24-48); MEAN CORPUSCULAR HEMOGLOBIN 33 pg (25-35); MEAN CORPUSCULAR HGB CONC 33 g/dL (31-37); MEAN CORPUSCULAR VOLUME 99 fL (79-100); MONO # 0.7 x10^3/uL (0.0-1.1); MONO % 11 % (0-9); NEUT # 4.2 x10^3/uL (1.8-7.7); NEUT % 71 % (31-73); PLATELET COUNT 113 x10^3/uL (140-400); RED BLOOD COUNT 4.23 x10^6/uL (4.30-5.70); RED CELL DISTRIBUTION WIDTH 14.3 % (11.5-14.5); WHITE BLOOD COUNT 5.9 x10^3/uL (4.0-11.0)
[2018-10-09 14:02] LABS: ALBUMIN 3.2 g/dL (3.4-5.0); CALCIUM 8.9 mg/dL (8.5-10.1); CREATININE 0.6 mg/dL (0.7-1.3); POTASSIUM 3.7 mmol/L (3.5-5.1); TOTAL BILIRUBIN 0.6 mg/dL (0.2-1.0); TOTAL PROTEIN 6.4 g/dL (6.4-8.2)
--- NOTE | 2018-10-10 15:11 | NUR ---
FAXED PRE - OP LAB REPORTS TO 'S OFFICE FOR REVIEW AT 1111 10/10/2018 AND RECEIVED TRANSMITTAL CONFIRMATION.
--- NOTE | 2018-10-10 15:19 | NUR ---
PATIENT'S CARDIAC CLEARANCE FROM ON CHART. ONCOLOGY H&P AND CLEARANCE FROM DR.PENELOPE COLLAZO OF [facility] ON CHART.
== END | disposition home or self-care (01) ==
LOC: SURGPAT 12:40
PROVIDERS: ATTEND Neurological Surgery
DX: Z01.818 Encounter for other preprocedural examination (principal); M48.062 Spinal stenosis, lumbar region with neurogenic claudication
CPT/HCPCS: 36415; 80053; 85025; 87641

== ENCOUNTER 2018-10-21 08:41 | Inpatient (IN) | payer MEDICARE, OTHER ==
--- NOTE | 2018-10-19 02:38 | PREOP HP ---
DATE OF SERVICE: 10/21/2018 HISTORY OF PRESENT ILLNESS: The patient is a pleasant 78-year-old who has difficulty with low back pain and pain, which radiates up into both of his legs. His pain is worse with standing and walking. He gets relief with sitting. He is taking [place]. He ambulates with a cane. He has moderately severe lumbar spinal stenosis at L3-L4 on the right side at L4-L5. He has been cleared for surgery. I again discussed the surgery and the risks with him. He understands and would like to go ahead. PAST MEDICAL HISTORY: Arthritis, prostate cancer, COPD, seizures, heart attack and failure, hypertension, mitral valve prolapse, radiation, swelling of limbs, diabetes. PAST SURGICAL HISTORY: Bunions 2004, cataract 2008, lumbar surgery x2 2009 and 2010, a toe removed 2014, vertebroplasty 2011. FAMILY HISTORY: Cancer, diabetes, seizures, heart problems and disease, hypertension, [place] at an early age, spine problems. 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 Denies substance abuse. Denies tobacco use currently. Drinks alcohol 1-2 times per year. Drinks coffee daily. ALLERGIES: No known drug allergies. CURRENT MEDICATIONS: Levetiracetam, magnesium, naproxen, Bactrim, diclofenac, furosemide, potassium chloride, metoprolol, aspirin, diltiazem, DuoNeb, budesonide, gabapentin, vitamin C, vitamin D3, [place], omega-3, tamsulosin, allopurinol. REVIEW OF SYSTEMS: A 12-point review of systems was obtained and is noncontributory except for that mentioned above. PHYSICAL EXAMINATION: NEUROSURGERY EXAMINATION: GENERAL APPEARANCE: Alert, pleasant, no acute distress. HEAD: Normocephalic and atraumatic. SKIN: Warm and dry. MUSCULOSKELETAL: Lumbar paraspinal muscle bulk is normal, restricted range of motion of lumbar spine, zszf-ci-vpwsbatu tenderness of the lower lumbar spine with palpation, normal range of motion of the lower extremities bilaterally. EXTREMITIES: No clubbing, cyanosis or edema. NEUROLOGIC: Alert and oriented x 3, normal recent and remote memory. Strength 5/5 in bilateral lower extremities, sensory was intact to light touch in lower extremities bilaterally, reflexes are present and symmetric in bilateral lower extremities, negative straight leg raising bilaterally, ambulates with a cane. IMAGING: I have seen a lumbar MRI scan. On that study, there is moderately severe spinal stenosis at L3-L4 as well on the right side at L4-L5. PLAN: At this point, my plan and recommendation remains the same. Since he has already been cleared for surgery, we can go ahead and operate and decompress him at L3-L4 for his lumbar spinal stenosis as well as on the right side at L4-L5. I did discuss with him the surgery and the risks. I explained that the problems have been present for 10 years, may be associated with incomplete recovery. He understands. He would like to go ahead. We will make the arrangements. ENRIQUE DUARTE MD DR: MEENA/chas JOB#: [id number] / [id number] COMFORT
[2018-10-21] VITALS (8 sets, daily range): BP systolic 116–139; BP diastolic 61–79
[~2018-10-21 08:41] MED LIST changes: -ACLI400A2 IH; +ACLI400A3 IH; +BACITRACIN 50,000 UNIT in IV NORMAL SALINE 1000ML BAG 1,000 ML IRR ONE; +BUPIVAC MPF-EPI 0.5%-1:200000 30 ML VIAL. ONE; +GELATIN SPONGE SIZE 12-7MM SPONGE. ONE; +HYDROmorphone 2 MG/ML VIAL IV PRN; +IV RINGERS,LACTATED 1000ML 1,000 ML IV SCH; +KETOROLAC 60 MG/2 ML INJ FOR OR. ONE; +LIDOCAINE 1% PF 2 ML VIAL. ID PRN; +MORPHINE SULFATE 2 MG/ML VIAL. IV PRN; +ONDANSETRON PF 4 MG/2 ML VIAL. IV PRN; +PROCHLORPERAZINE 10 MG/2 ML VIAL. IV PRN; +THROMBIN TOPICAL 20,000 UNIT SPRAY.SYRN KIT TP ONE; +fentaNYL PF VIAL 100 MCG/2 ML VIAL IV PRN
--- NOTE | 2018-10-21 09:50 | EKG ---
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
[2018-10-21] MEDS ORDERED: ceFAZolin 2GM PREMIX 2 GM/50 ML BAG IV ONE (10:00)
[2018-10-21] MEDS ORDERED: PROPOFOL 50 ML IV ONE ×2 (10:35→13:05)
[2018-10-21] MEDS ORDERED: LIDOCAINE 2% PF 5 ML VIAL. ONE (10:35)
[2018-10-21] MEDS ORDERED: ONDANSETRON PF 4 MG/2 ML VIAL. ONE (10:35)
[2018-10-21] MEDS ORDERED: PHENYLEPHRINE 10 MG/ML VIAL. ONE (10:35)
[2018-10-21] MEDS ORDERED: ROCURONIUM 50 MG/5 ML VIAL. ONE (10:35)
[2018-10-21] MEDS ORDERED: REMIFENTANIL 2 MG VIAL. IV ONE (10:35)
[2018-10-21] MEDS ORDERED: DEXAMETHASONE SOD PHOS 20 MG/5 ML VIAL. ONE (10:35)
[2018-10-21] MEDS ORDERED: PROPOFOL 20 ML IV ONE (10:35)
[2018-10-21] MEDS ORDERED: MINERAL OIL/PETROLATUM,WHITE OPHTH OINT 3.5GM TUBE. ONE (10:37)
[2018-10-21] MEDS ORDERED: DESFLURANE > 120 MINUTES IH ONE (11:49)
[2018-10-21] MEDS ORDERED: GLYCOPYRROLATE 1 MG/5 ML VIAL. ONE (11:58)
[2018-10-21] MEDS ORDERED: GELATIN SPONGE SIZE 12-7MM SPONGE. ONE ×4 (12:05)
[2018-10-21] MEDS ORDERED: oxyCODONE IR 5 MG TABLET PO PRN (14:45)
[2018-10-21] MEDS ORDERED: ZOLPIDEM 5 MG TABLET. PO PRN (14:45)
[2018-10-21] MEDS ORDERED: CYCLOBENZAPRINE 10 MG TABLET. PO PRN (14:45)
[2018-10-21] MEDS ORDERED: HYDROcodone/APAP 5/325MG 1 TAB TABLET PO PRN (14:45)
[2018-10-21] MEDS ORDERED: diphenhydrAMINE HCL 25 MG CAPSULE PO PRN (14:45)
[2018-10-21] MEDS ORDERED: HYDROcodone/APAP 7.5/325MG 1 TAB TABLET PO PRN (14:45)
[2018-10-21] MEDS ORDERED: fentaNYL PF VIAL 100 MCG/2 ML VIAL IV PRN ×2 (14:45)
[2018-10-21] MEDS ORDERED: ONDANSETRON PF 4 MG/2 ML VIAL. IV PRN (14:45)
[2018-10-21] MEDS ORDERED: CALCIUM CARBONATE 500 MG TAB.CHEW PO PRN (14:45)
[2018-10-21] MEDS ORDERED: MAGNESIUM HYDROXIDE 2,400 MG/30 ML ORAL.SUSP. PO PRN (14:45)
[2018-10-21] MEDS ORDERED: MAG HYDROX/ALUMINUM HYD/SIMETH 30 ML ORAL.SUSP PO PRN (14:45)
[2018-10-21] MEDS ORDERED: ACETAMINOPHEN 325 MG TABLET. PO PRN (14:45)
[2018-10-21] MEDS ORDERED: diphenhydrAMINE 50 MG/ML VIAL IV PRN (14:45)
[2018-10-21] MEDS: fentaNYL PF VIAL 100 MCG/2 ML VIAL IV PRN ×2 (15:41→16:31)
[2018-10-21] MEDS ORDERED: ALBUTEROL SULFATE 8GM INHALER. INH SCH (16:00)
[2018-10-21] MEDS: ALBUTEROL SULFATE 2.5 MG/3 ML NEBU. NEB SCH ×2 (16:03→23:52)
--- NOTE | 2018-10-21 19:08 | NUR ---
Patient arrived to the floor in a bed around 1814. He is on 2L NC and his IV has fluids infusing properly at this time. Dressing to lower back immediately changed upon admission to the floor due to a moderate amount of bloody drainage draining thru the dressing. Oriented patient, and his significant other Esperanza, to the floor. Will continue to monitor.
[2018-10-21] MEDS ORDERED: POTASSIUM CL 20MEQ D5-0.45NACL 1,000 ML IV ONE (21:00)
[2018-10-21] MEDS ORDERED: GABAPENTIN 100 MG CAPSULE. PO SCH (21:00)
[2018-10-21] MEDS: DOCUSATE SODIUM 100 MG CAPSULE. PO SCH (21:10)
[2018-10-21] MEDS: ACETAMINOPHEN 325 MG TABLET. PO SCH (21:10)
[2018-10-21] MEDS: levETIRAcetam 500 MG TABLET PO SCH (21:11)
[2018-10-21] MEDS: METOPROLOL TART IMMED RELEASE 50 MG TABLET. PO SCH (21:12)
[2018-10-21] MEDS: POTASSIUM CL 20MEQ-0.45% NACL 1,000 ML IV SCH (22:00)
[2018-10-22 03:05] VITALS: BP 138/74
[2018-10-22] MEDS: ALBUTEROL SULFATE 2.5 MG/3 ML NEBU. NEB SCH ×3 (03:31→11:07)
[2018-10-22] MEDS: ACETAMINOPHEN 325 MG TABLET. PO SCH (06:26)
[2018-10-22 07:00] VITALS: BP 119/65
[2018-10-22] MEDS: levETIRAcetam 500 MG TABLET PO SCH (08:15)
[2018-10-22] MEDS: DOCUSATE SODIUM 100 MG CAPSULE. PO SCH (08:16)
[2018-10-22] MEDS: POTASSIUM CHLORIDE 10 MEQ TABLET.ER. PO SCH (08:16)
[2018-10-22] MEDS: METOPROLOL TART IMMED RELEASE 50 MG TABLET. PO SCH (08:21)
[2018-10-22] MEDS ORDERED: ALLOPURINOL 100 MG TABLET. PO SCH (09:00)
[2018-10-22] MEDS ORDERED: MAGNESIUM CHLORIDE ER 64 MG TABLET.ER PO SCH (09:00)
[2018-10-22] MEDS ORDERED: NON FORMULARY ITEM (Gluc 2KCL/Chondr/Coll Hy/Hy Ac (Glucosamine & Chondroitin Cap) 1 EACH) PO SCH (09:00)
[2018-10-22] MEDS ORDERED: FUROSEMIDE 40 MG TABLET. PO SCH (09:00)
[2018-10-22] MEDS ORDERED: CHOLECALCIFEROL (VITAMIN D3) 1,000 UNIT TABLET PO SCH (09:00)
[2018-10-22] MEDS ORDERED: OMEGA-3 FATTY ACIDS/FISH OIL 1,000 MG CAPSULE. PO SCH (09:00)
[2018-10-22 11:00] VITALS: BP 103/52
[2018-10-22] MEDS: POTASSIUM CL 20MEQ-0.45% NACL 1,000 ML IV SCH (11:20)
[2018-10-22 11:21] VITALS: BP 103/52
--- NOTE | 2018-10-22 12:07 | PDOC ---
PROGRESS NOTES Subjective Subjective Up in chair. Marked improvement in his lower extremity symptoms. Objective Objective Lumbar incision flat. There has been some drainage. Vital Signs Date Time Temp Pulse Resp B/P (MAP) Pulse Ox O2 Delivery O2 Flow Rate FiO2 10/22/18 11:21 80 103/52 10/22/18 11:08 Room Air 10/22/18 11:00 98.4 18 97 2.0 98.4 Intake and Output 10/22/18 06:59 Intake Total 2423 ml Output Total 1400 ml Balance 1023 ml Intake Oral 1060 ml IV Total 1363 ml Output Urine Total 1300 ml Estimated Blood Loss 100 ml # Voids 2 Plan Plan of Care Plan to dc home today. Post-op instructions given. He will f/u in 2 weeks in the office. Comment Review of Relevant I have reviewed the following items peyman (where applicable) has been applied. Labs Laboratory Tests Test 10/21/18 18:31 10/21/18 21:41 10/22/18 07:46 10/22/18 10:53 Glucose (Fingerstick) 187 mg/dL (70-99) 180 mg/dL (70-99) 171 mg/dL (70-99) 173 mg/dL (70-99) Laboratory Tests Test 10/21/18 18:31 10/21/18 21:41 10/22/18 07:46 10/22/18 10:53 Glucose (Fingerstick) 187 mg/dL (70-99) 180 mg/dL (70-99) 171 mg/dL (70-99) 173 mg/dL (70-99) Medications Current Medications Ondansetron HCl (Zofran) 4 mg PRN Q6HRS PRN IV NAUSEA/VOMITING; Start 10/21/18 at 07:00; Stop 10/21/18 at 21:00; Status DC Fentanyl Citrate (Fentanyl 2ml Vial) 25 mcg PRN Q5MIN PRN IV MILD PAIN 1-3; Start 10/21/18 at 07:00; Stop 10/21/18 at 21:00; Status DC Fentanyl Citrate (Fentanyl 2ml Vial) 50 mcg PRN Q5MIN PRN IV MODERATE TO SEVERE PAIN Last administered on 10/21/18at 16:31; Start 10/21/18 at 07:00; Stop 10/21/18 at 21:00; Status DC Morphine Sulfate (Morphine Sulfate) 1 mg PRN Q10MIN PRN IV SEVERE PAIN 7-10; Start 10/21/18 at 07:00; Stop 10/21/18 at 21:00; Status DC Ringer's Solution 1,000 ml @ 30 mls/hr Q24H IV Last administered on 10/21/18at 09:47; Start 10/21/18 at 07:00; Stop 10/21/18 at 18:59; Status DC Lidocaine HCl (Xylocaine-Mpf 1% 2ml Vial) 2 ml PRN 1X PRN ID PRIOR TO IV START; Start 10/21/18 at 07:00; Stop 10/21/18 at 20:06; Status DC Hydromorphone HCl (Dilaudid) 0.5 mg PRN Q10MIN PRN IV SEV PAIN, Second choice; Start 10/21/18 at 07:00; Stop 10/21/18 at 21:00; Status DC Prochlorperazine Edisylate (Compazine) 5 mg PACU PRN PRN IV NAUSEA, MRX1; Start 10/21/18 at 07:00; Stop 10/21/18 at 21:00; Status DC Bacitracin 25251 unit/Sodium Chloride 1,000 ml @ 1,000 mls/hr 1X ONCE IRR Last administered on 10/21/18at 12:02; Start 10/21/18 at 06:00; Stop 10/21/18 at 06:59; Status DC Cefazolin Sodium/ Dextrose 50 ml @ 100 mls/hr PREOP PRN PRN IV PREOP Last administered on 10/21/18at 11:40; Start 10/21/18 at 06:45; Stop 10/21/18 at 20:05; Status DC Bupivacaine HCl/ Epinephrine Bitart (Sensorcain-Mpf Epi 0.5%-1:[id number]) 30 ml STK-MED ONCE .ROUTE Last administered on 10/21/18at 12:02; Start 10/21/18 at 06:31; Stop 10/21/18 at 07:31; Status DC Gelatin (Gelfoam Size 12-7mm) 1 each STK-MED ONCE .ROUTE Last administered on 10/21/18at 12:02; Start 10/21/18 at 06:31; Stop 10/21/18 at 07:31; Status DC Ketorolac Tromethamine (Toradol For Or Only) 60 mg STK-MED ONCE .ROUTE Last administered on 10/21/18at 12:02; Start 10/21/18 at 06:31; Stop 10/21/18 at 07:31; Status DC Thrombin 20,000 unit STK-MED ONCE TP Last administered on 10/21/18at 12:02; Start 10/21/18 at 06:31; Stop 10/21/18 at 07:32; Status DC Gelatin (Gelfoam Size 12-7mm) 1 each STK-MED ONCE .ROUTE Last administered on 10/21/18at 12:02; Start 10/21/18 at 06:31; Stop 10/21/18 at 07:32; Status DC Propofol 20 ml @ As Directed STK-MED ONCE IV ; Start 10/21/18 at 10:35; Stop 10/21/18 at 10:36; Status DC Dexamethasone Sodium Phosphate (Decadron) 20 mg STK-MED ONCE .ROUTE ; Start 10/21/18 at 10:35; Stop 10/21/18 at 10:36; Status DC Lidocaine HCl (Lidocaine Pf 2% Vial) 5 ml STK-MED ONCE .ROUTE ; Start 10/21/18 at 10:35; Stop 10/21/18 at 10:36; Status DC Ondansetron HCl (Zofran) 4 mg STK-MED ONCE .ROUTE ; Start 10/21/18 at 10:35; Stop 10/21/18 at 10:36; Status DC Phenylephrine HCl (Sam-Synephrine Inj) 10 mg STK-MED ONCE .ROUTE ; Start 10/21/18 at 10:35; Stop 10/21/18 at 10:36; Status DC Propofol 50 ml @ As Directed STK-MED ONCE IV ; Start 10/21/18 at 10:35; Stop 10/21/18 at 10:36; Status DC Rocuronium Herald (Zemuron) 50 mg STK-MED ONCE .ROUTE ; Start 10/21/18 at 10:35; Stop 10/21/18 at 10:36; Status DC Remifentanil HCl (Ultiva) 2 mg STK-MED ONCE IV ; Start 10/21/18 at 10:35; Stop 10/21/18 at 10:36; Status DC Multi-Ingred Cream/Lotion/Oil/ Oint (Artificial Tears Eye Ointment) 7 renée STK- MED ONCE .ROUTE ; Start 10/21/18 at 10:37; Stop 10/21/18 at 10:38; Status DC Desflurane (Suprane) 90 ml STK-MED ONCE IH ; Start 10/21/18 at 11:49; Stop 10/21/18 at 11:50; Status DC Glycopyrrolate (Robinul) 1 mg STK-MED ONCE .ROUTE ; Start 10/21/18 at 11:58; Stop 10/21/18 at 11:59; Status DC Gelatin (Gelfoam Size 12-7mm) 1 each STK-MED ONCE .ROUTE Last administered on 10/21/18at 13:08; Start 10/21/18 at 12:05; Stop 10/21/18 at 13:05; Status DC Propofol 50 ml @ As Directed STK-MED ONCE IV ; Start 10/21/18 at 13:05; Stop 10/21/18 at 13:06; Status DC Gelatin (Gelfoam Size 12-7mm) 1 each STK-MED ONCE .ROUTE Last administered on 10/21/18at 13:08; Start 10/21/18 at 12:05; Stop 10/21/18 at 13:05; Status DC Gelatin (Gelfoam Size 12-7mm) 1 each STK-MED ONCE .ROUTE Last administered on 10/21/18at 14:22; Start 10/21/18 at 12:05; Stop 10/21/18 at 13:05; Status DC Gelatin (Gelfoam Size 12-7mm) 1 each STK-MED ONCE .ROUTE Last administered on 10/21/18at 14:22; Start 10/21/18 at 12:05; Stop 10/21/18 at 13:05; Status DC Oxycodone HCl (Roxicodone) 5 mg PRN Q3HRS PRN PO PAIN; Start 10/21/18 at 14:45 Acetaminophen (Tylenol) 650 mg PRN Q6HRS PRN PO MILD PAIN / TEMP; Start 10/21/18 at 14:45 Al Hydroxide/Mg Hydroxide (Mylanta Plus Xs) 30 ml PRN Q3HRS PRN PO DYSPEPSIA; Start 10/21/18 at 14:45 Calcium Carbonate/ Glycine (Tums) 500 mg PRN Q3HRS PRN PO INDIGESTION; Start 10/21/18 at 14:45 Diphenhydramine HCl (Benadryl) 25 mg PRN Q6HRS PRN PO ITCHING; Start 10/21/18 at 14:45 Diphenhydramine HCl (Benadryl) 25 mg PRN Q6HRS PRN IV ITCHING; Start 10/21/18 at 14:45 Zolpidem Tartrate (Ambien) 5 mg PRN QHS PRN PO INSOMNIA; Start 10/21/18 at 14:45 Potassium Chloride/Sodium Chloride 1,000 ml @ 75 mls/hr [id number] IV ; Start at 22:00 Acetaminophen (Tylenol) 650 mg Q8HRS PO Last administered on 10/22/18at 06:26; Start 10/21/18 at 22:00 Cyclobenzaprine HCl (Flexeril) 10 mg PRN TID PRN PO MUSCLE SPASMS Last administered on 10/22/18at 08:16; Start 10/21/18 at 14:45 Docusate Sodium (Colace) 100 mg BID PO Last administered on 10/22/18at 08:16; Start 10/21/18 at 21:00 Magnesium Hydroxide (Milk Of Magnesia) 2,400 mg PRN Q12HR PRN PO CONSTIPATION; Start 10/21/18 at 14:45 Ondansetron HCl (Zofran) 4 mg PRN Q6HRS PRN IV NAUESA, 1ST CHOICE; Start 10/21/18 at 14:45 Fentanyl Citrate (Fentanyl 2ml Vial) 50 mcg PRN Q1HR PRN IV PAIN; Start 10/21/18 at 14:45 Acetaminophen/ Hydrocodone Bitart (Lortab 7.5/325) 1 tab PRN Q4HRS PRN PO PAIN Last administered on 10/21/18at 16:28; Start 10/21/18 at 14:45 Gabapentin (Neurontin) 100 mg QHS PO Last administered on 10/21/18at 21:10; Start 10/21/18 at 21:00 Fentanyl Citrate (Fentanyl 2ml Vial) 25-50 mcg q2h prn pain PRN Q2HR PRN IV PAIN; Start 10/21/18 at 14:45; Stop 10/21/18 at 15:01; Status DC Potassium Chloride/Dextrose/ Sod Cl 1,000 ml @ 75 mls/hr 1X ONCE IV ; Start 10/21/18 at 21:00; Stop 10/22/18 at 10:19; Status DC Albuterol Sulfate (Ventolin Hfa) 2 puff Q4HRS INH ; Start 10/21/18 at 16:00; Stop 10/21/18 at 16:00; Status DC Allopurinol (Zyloprim) 200 mg DAILY PO Last administered on 10/22/18at 08:14; Start 10/22/18 at 09:00 Vitamin D (Vitamin D3) 2,000 unit DAILY PO Last administered on 10/22/18at 08:15; Start 10/22/18 at 09:00 Furosemide (Lasix) 40 mg DAILY PO ; Start 10/22/18 at 09:00 Acetaminophen/ Hydrocodone Bitart (Lortab 5/325) 1 tab PRN Q6HRS PRN PO PAIN Last administered on 10/21/18at 23:40; Start 10/21/18 at 14:45 Levetiracetam (Keppra) 750 mg BID PO Last administered on 10/22/18at 08:15; Start 10/21/18 at 21:00 Metoprolol Tartrate (Lopressor) 50 mg BID PO Last administered on 10/22/18at 08:21; Start 10/21/18 at 21:00 Diltiazem HCl (Cardizem 24hr Cd) 120 mg DAILY PO ; Start 10/22/18 at 09:00 Non-Formulary Medication (Gluc 2KCL/ Chondr/Mara Hy/Hy Ac (Glucosamine & Chondroitin Cap)) 1 each DAILY PO ; Start 10/22/18 at 09:00; Status UNV Magnesium Chloride (Mag Delay) 64 mg DAILY PO Last administered on 10/22/18at 08:14; Start 10/22/18 at 09:00 Fish Oil (Fish Oil) 1,000 mg DAILY PO Last administered on 10/22/18at 08:16; Start 10/22/18 at 09:00 Potassium Chloride (Klor-Con) 10 meq BIDWMEALS PO Last administered on 10/22/18at 08:16; Start 10/21/18 at 17:00 Albuterol Sulfate (Ventolin Neb Soln) 2.5 mg Q4HRS NEB Last administered on 10/22/18at 11:07; Start 10/21/18 at 16:00 Active Scripts Active Reported Levetiracetam 500 Mg Tablet 750 Mg PO BID Hydrocodone-Apap 5-325 (Hydrocodone Bit/Acetaminophen) 1 Each Tablet 1 Tab PO PRN Q6HRS PRN Magnesium (Magnesium Amino Acid Chelate) 27 Mg Tablet 27 Mg PO DAILY Glucosamine & Chondroitin Cap (Gluc 2KCL/Chondr/Mara Hy/Hy Ac) 1 Each Capsule 1 Each PO DAILY Furosemide 40 Mg Tablet 1 Tab PO DAILY Metoprolol Tartrate 50 Mg Tablet 1 Tab PO BID Diltiazem 24HR Cd (Diltiazem Hcl) 120 Mg Cap.er.24h 1 Cap PO DAILY Maximum Daily Multivitamin (Multivit With Calcium,Iron,Min) 1 Each Tablet 1 Each PO Fish Oil ([place]-3 Fatty Acids) 300 Mg Capsule 1,000 Mg PO DAILY K-Tab ER (Potassium Chloride) 20 Meq Tablet.er 10 Meq PO BID Vitamin D (Cholecalciferol (Vitamin D3)) 1,000 Unit Tablet 2,000 Unit PO DAILY Allopurinol 100 Mg Tablet 200 Tab PO DAILY Albuterol Sulfate Hfa Inhaler (Albuterol Sulfate) 8.5 Gm Hfa.aer.ad 2 Puff INH Q4HRS Vitals/I & O Vital Sign - Last 24 Hours 10/21/18 10/21/18 10/21/18 10/21/18 14:58 14:58 15:13 15:28 Pulse 108 87 92 Resp 20 20 20 B/P (MAP) 138/72 127/72 140/77 Pulse Ox 99 99 91 O2 Delivery Mask Simple Mask Room Air O2 Flow Rate 10 10 10 10/21/18 10/21/18 10/21/18 10/21/18 15:41 15:43 15:58 16:03 Pulse 88 86 Resp 20 20 20 B/P (MAP) 137/75 139/73 Pulse Ox 99 89 96 94 O2 Delivery Room Air Room Air Room Air Room Air 10/21/18 10/21/18 10/21/18 10/21/18 16:13 16:28 16:28 16:31 Pulse 116 110 Resp 20 20 20 20 B/P (MAP) 145/93 146/63 Pulse Ox 93 93 92 95 O2 Delivery Room Air Room Air Room Air Room Air 10/21/18 10/21/18 10/21/18 10/21/18 16:43 17:30 17:45 18:18 Temp 97.6 97.6 Pulse 102 94 100 108 Resp 20 20 18 B/P (MAP) 146/63 145/79 132/70 133/63 (86) Pulse Ox 92 100 88 97 O2 Delivery Room Air Room Air Room Air Nasal Cannula O2 Flow Rate 2.0 10/21/18 10/21/18 10/21/18 10/21/18 18:31 18:47 19:01 19:16 Pulse 114 97 99 104 Resp 16 B/P (MAP) 134/61 (85) 122/71 (88) 116/67 (83) 128/65 (86) Pulse Ox 97 95 98 98 O2 Delivery Nasal Cannula Nasal Cannula Nasal Cannula Nasal Cannula O2 Flow Rate 2.0 2.0 2.0 2.0 10/21/18 10/21/18 10/21/18 10/21/18 19:31 19:35 21:01 21:12 Temp 98.0 98.0 Pulse 91 126 99 Resp 18 B/P (MAP) 139/61 (87) 137/76 (96) 138/66 Pulse Ox 96 94 O2 Delivery Nasal Cannula Nasal Cannula Nasal Cannula O2 Flow Rate 2.0 2.0 2.0 10/21/18 10/21/18 10/21/18 10/22/18 22:01 23:40 23:53 00:42 Temp 97.5 97.5 Pulse 89 Resp B/P (MAP) 138/79 (98) Pulse Ox 97 95 O2 Delivery Nasal Cannula Nasal Cannula Room Air Nasal Cannula O2 Flow Rate 2.0 2.0 2.0 10/22/18 10/22/18 10/22/18 10/22/18 03:05 03:32 07:00 07:14 Temp 97.8 98.2 97.8 98.2 Pulse 89 85 Resp 22 B/P (MAP) 138/74 (95) 119/65 (83) Pulse Ox 98 95 96 O2 Delivery Nasal Cannula Room Air Nasal Cannula Room Air O2 Flow Rate 2.0 2.0 10/22/18 10/22/18 10/22/18 10/22/18 07:50 08:21 11:00 11:08 Temp 98.4 98.4 Pulse 90 80 Resp 18 B/P (MAP) 119/65 103/52 (69) Pulse Ox 97 O2 Delivery Nasal Cannula Nasal Cannula Room Air O2 Flow Rate 2.0 2.0 10/22/18 11:21 Pulse 80 B/P (MAP) 103/52 Intake and Output 10/21/18 10/21/18 10/22/18 14:59 22:59 06:59 Intake Total 750 ml 550 ml 1123 ml Output Total 100 ml 1300 ml Balance 650 ml 550 ml -177 ml ENRIQUE DUARTE MD Oct 22, 2018 12:07
[2018-10-22] MEDS ORDERED: METH-38 PO (12:25)
[2018-10-22] MEDS ORDERED: HYDR-2765 PO (12:25)
--- NOTE | 2018-10-22 12:29 | DISCH ---
DISCHARGE INSTRUCTIONS Condition on Discharge Condition on Discharge: Stable Activity After Discharge Activity Instructions for Disc: Activity as tolerated Bathing Instructions: Shower-keep dressing dry, No Tub Bath until see Lifting Instructions after Dis: No heavy lifting, No pulling or pushing, Do not lift >10 pounds (No bending, lifting, pushing, pulling) Driving Instructions after Dis: Do not drive (No Driving for 1 week) Weight Bearing Status after Di: As tolerated Diet after Discharge Diet after Discharge: Cardiac Diet Texture: Regular Wound Incision Care Wound/Incision Care: Change dressing (1-2 times per day and as needed) Contacting the [facility] after DC Call your doctor for: Concerns you may have Follow-Up Follow up with: 's nurse in the office in 2 weeks. Call to make appt. Treatment/Equipment after DC Adaptive Equipment Issued: None ENRIQUE DUARTE MD Oct 22, 2018 12:29
--- NOTE | 2018-10-22 13:50 | NUR ---
Discharge instructions given with prescriptions. Answered questions and concerns. Verbalized understanding. Dressing changed and extra supplies given. Waiting for son to arrive. States feels much better than yesterday. Cont. monitor.
--- NOTE | 2018-10-22 14:14 | NUR ---
Pt discharged home accompanied by son. Left unit by w/c.
--- NOTE | 2018-10-23 17:06 | PATHOLOGY ---
[facility] Accession Number: [id number] . 01 Material submitted: . PART A: vertebral column - LUMBAR DECOMPRESSION PART B: vertebral column - SYNOVIAL CYST . 01 Clinical history: . Lumbar stenosis with neurogenic claudication. . 02 Diagnosis: A. Segments of fibrocartilaginous, fibroadipose, and skeletal muscle tissue and bone, lumbar decompression: - Degenerative changes of fibrocartilaginous tissue. . B. Segments of synovial, fibrocartilaginous, fibroadipose, and skeletal muscle tissue, synovial cyst: - Synovial cyst, with focal calcification. (JPM:jose; 10/23/2018) R/10/23/2018 . 02 Comment: There is no evidence of an acute inflammatory process or malignancy. (JPM:mosaicist; 10/23/2018) . 02 Electronically signed: . Gregorio Carson MD, Pathologist NPI- [id number] . 01 Gross description: . A. Received in formalin labeled "Nickum, , lumbar decompression" is a 4.5 x 4.0 x 1.5 cm aggregate of ontiveros-white rubbery soft tissue and scant bone fragments. Bmx Rider sections are submitted in cassette A1. . B. Received in formalin labeled "Nickum, , synovial cyst" is a 5.0 x 2.5 x 1.2 cm aggregate of ontiveros-yellow to ontiveros-white soft tissue fragments. No cystic structures are definitively identified. Approximately 20 percent of the tissue has membranous areas. Bmx Rider sections are submitted in cassette B1. ([facility] [place]; 10/22/2018) SYC/SYC . 02 Pathologist provided ICD-10: M51.36, M71.38 . 02 CPT . 539552, 202313 Specimen Comment: A courtesy copy of this report has been sent to Specimen Comment: [phone], . Specimen Comment: Report sent to / DR HASSAN Performed at: [address] [facility], [place], [place] [id number] MD Ramy Hay MD Phone: [phone] Performed at: 02 [facility] [address] [place], [place] [id number] MD Gregorio Carson MD Phone: [phone]
--- NOTE | 2018-10-30 18:31 | OP ---
DATE OF SURGERY: 10/21/2018 PREOPERATIVE DIAGNOSES: Lumbar spinal stenosis L3-L4, right L4-L5 with neurogenic claudication. POSTOPERATIVE DIAGNOSES: Lumbar spinal stenosis L3-L4, right L4-L5 with neurogenic claudication. OPERATION PERFORMED: Bilateral hemilaminotomies with decompression of dura and nerve root L3-L4, right lumbar microdecompression and microdiscectomy, right L4-L5. The operation was done with EMG monitoring, SSEP monitoring, fluoroscopy, microscopic dissection. SURGEON: Nav Duarte M.D. HOTEL ASSOCIATE: ORLANDO Decker, assisted with the surgery. She assisted with the exposure, the multilevel decompression as well as the closure. OPERATIVE INDICATIONS: The patient is a pleasant 78-year-old who developed intractable back and bilateral leg symptoms and had the above-mentioned findings. He failed conservative measures and I recommended surgery. He understood the surgery, the risks, the technique and expected postoperative course and wished to go ahead. DESCRIPTION OF PROCEDURE: Following general endotracheal anesthesia, the patient was positioned prone on the Alvarado table. Lumbar region prepped and draped in standard fashion. KINGA hose and AV impulse boots were applied for DVT prophylaxis. The microscope was draped. Fluoroscopy was draped and brought into the field. Monitoring was established. Ancef 2 grams was given less than 1 hour prior to initiation of the surgery. Using fluoroscopic guidance, incision was made in the midline from mid L3 to mid L5. I dissected down through skin and subcutaneous tissue and on the left side, I created an exposure at L3-L4, I brought in the microscope and placed a microdisk retractor. I brought in the high speed air drill and using microscopic technique, I burred down a generous hemilaminotomy. There was considerable degenerative spurring and hypertrophic facet disease as well as thickened ligamentum flavum and worked in this region which was tedious, but I was gradually able to free up the ligamentum flavum, which was partially calcified and peel it away from medial to lateral. I worked quite close to the midline and worked out laterally to fully decompress the dura and performed a partial foraminotomy to decompress the L4 root. The disc was bulging slightly, but very firm, no discectomy was warranted. I then removed the retractor, obtained perfect hemostasis and then placed a microdiscectomy retractor at L3-L4 on the right side. Again, there was marked hypertrophic facet and I had drilled this down. I drilled down and exposed the ligamentum flavum, which was again partially calcified. There was synovial material within the thickened hypertrophic ligament and as I worked, though I was able to free this material up and peeled from medial to lateral and then from superior to inferior and gradually removed the ligament and exposed the dura and the exiting root. On this side, the disc was bulging, but extremely firm and calcified and no discectomy was warranted. I irrigated copiously. I did use small amounts of bone wax for any bone bleeding. I then moved down to L4-L5 in a similar fashion, drilled a generous hemilaminotomy. Again, worked through the hypertrophic facet disease and peeled away the thickened ligamentum flavum, exposing the dura. There was a large bulging disc, which was partially calcified and I used a high speed air drill and drilled through the posterior calcification and then the 2-mm micro Kerrison to trim this calcification away from beneath the dura and the exiting root on the right side. I did perform a partial discectomy. Again, removing degenerated calcified disc material as I worked, the entire region became very well decompressed. Again, I used small amounts of bone wax as well as bipolar cautery. Again, I irrigated copiously. I removed the retractor, obtained perfect hemostasis and I irrigated copiously. I closed the wound in layers with absorbable suture. The skin was closed with 4-0 subcuticular stitch. The operation went very well. Monitoring was stable throughout. I was quite pleased with the surgery. NAV DUARTE MD DR: MEENA/chas JOB#: [id number] / [id number] COMFORT
== END 2018-10-22 14:14 | disposition home or self-care (01) | DRG 520 ==
LOC: SURG 08:41 → 4 NORTH 18:15
PROVIDERS: ADMIT Neurological Surgery; ATTEND Neurological Surgery
PROC: 01NB0ZZ Release Lumbar Nerve, Open Approach (ICD-10-PCS; 2018-10-21)
PROC: 00NY0ZZ Release Lumbar Spinal Cord, Open Approach (ICD-10-PCS; 2018-10-21)
PROC: 4A11X4G Monitoring of Peripheral Nervous Electrical Activity, Intraoperative, External Approach (ICD-10-PCS; 2018-10-21)
PROC: 0SB20ZZ Excision of Lumbar Vertebral Disc, Open Approach (ICD-10-PCS; principal; 2018-10-21 11:00)
DX: M48.062 Spinal stenosis, lumbar region with neurogenic claudication (principal); M51.86 Other intervertebral disc disorders, lumbar region; M19.90 Unspecified osteoarthritis, unspecified site; J44.9 Chronic obstructive pulmonary disease, unspecified; I10 Essential (primary) hypertension; I34.1 Nonrheumatic mitral (valve) prolapse; E11.9 Type 2 diabetes mellitus without complications; Z85.46 Personal history of malignant neoplasm of prostate; I25.2 Old myocardial infarction; Z83.3 Family history of diabetes mellitus; Z82.49 Family history of ischemic heart disease and other diseases of the circulatory system; Z79.899 Other long term (current) drug therapy
CPT/HCPCS: 76000; 82962; 88304; 88311; 93005; 94640; A7015; J0696; J1100; J1885; J2001; J2405; J2704; J3010; J3490; J7030; J7613; 97110; 97116; 97530

== ENCOUNTER → 2018-11-29 | Outpatient (CLI) | payer MEDICARE, OTHER ==
[~2018-11-29] MED LIST changes: -BACITRACIN 50,000 UNIT in IV NORMAL SALINE 1000ML BAG 1,000 ML IRR ONE; -BUPIVAC MPF-EPI 0.5%-1:200000 30 ML VIAL. ONE; -GELATIN SPONGE SIZE 12-7MM SPONGE. ONE; +HYDR-2765 PO; -HYDROmorphone 2 MG/ML VIAL IV PRN; -IV RINGERS,LACTATED 1000ML 1,000 ML IV SCH; -KETOROLAC 60 MG/2 ML INJ FOR OR. ONE; -LIDOCAINE 1% PF 2 ML VIAL. ID PRN; +METH-38 PO; -MORPHINE SULFATE 2 MG/ML VIAL. IV PRN; -ONDANSETRON PF 4 MG/2 ML VIAL. IV PRN; -PROCHLORPERAZINE 10 MG/2 ML VIAL. IV PRN; -THROMBIN TOPICAL 20,000 UNIT SPRAY.SYRN KIT TP ONE; -fentaNYL PF VIAL 100 MCG/2 ML VIAL IV PRN
--- NOTE | 2018-11-29 12:38 | KCIC ---
PA and lateral views of the chest. Comparison: None. Indication: Pulmonary crackles and shortness of air Findings: The heart size is enlarged. No pneumothorax or effusion. No air space or interstitial disease. The bony structures are intact. Impression: 1. No acute cardiopulmonary process. Electronically signed by: Rehan Wei MD (11/29/2018 12:35 PM) [id number]
== END | disposition home or self-care (01) ==
LOC: KCIC 10:23
PROVIDERS: ATTEND Nurse Practitioner Gerontology
DX: I51.7 Cardiomegaly (principal); R09.89 Other specified symptoms and signs involving the circulatory and respiratory systems
CPT/HCPCS: 71046

== ENCOUNTER 2018-12-19 12:48 | Inpatient (IN) | payer MEDICARE, OTHER ==
[~2018-12-19] VITALS: Ht 182.9 cm; Wt 98.2 kg
[2018-12-19] MEDS ORDERED: TRANEXAMIC ACID 1,000 MG/10 ML VIAL. INJ STA (13:11)
--- NOTE | 2018-12-19 13:15 | PHYS DOC ---
Past Medical History Past Medical History: A-Fib, COPD, Diabetes-Type II, Hypertension Additional Past Medical Histor: CARDIAC [id number] Past Surgical History: Other Additional Past Surgical Histo: BILAT BIG TOES, CATARACT, BACK SURG Alcohol Use: None Drug Use: Opiates Adult General Chief Complaint Chief Complaint: NOSEBLEED HPI HPI Patient is a 78 year old female that presents to the ER stating that he's been having nosebleeds since 7 AM. The patient states that he went to [facility] this morning was discharged after couple hours there with a tried to cauterize his nose, and then he left and immediately started bleeding again. Patient has blood all over his face on assessment. Patient states he has a history of low platelets. Rates his pain 6 out of 10 in severity. Review of Systems Review of Systems Constitutional: Denies fever or chills [] Eyes: Denies change in visual acuity, redness, or eye pain [] HENT: Denies nasal congestion or sore throat. Reports nose bleeding. Respiratory: Denies cough or shortness of breath [] Cardiovascular: No additional information not addressed in HPI [] GI: Denies abdominal pain, nausea, vomiting, bloody stools or diarrhea [] : Denies dysuria or hematuria [] Musculoskeletal: Denies back pain or joint pain [] Integument: Denies rash or skin lesions [] Neurologic: Denies headache, focal weakness or sensory changes [] Endocrine: Denies polyuria or polydipsia [] Complete systems were reviewed and found to be within normal limits, except as documented in this note. Current Medications Current Medications Current Medications Medications (Trade) Dose Ordered Sig/Dejuan Start Time Stop Time Status Last Admin Dose Admin Tranexamic Acid (Cyklokapron) 500 mg 1X STAT 12/19/18 13:11 12/19/18 13:12 DC 12/19/18 14:35 500 MG Allergies Allergies Allergies Coded Allergies Type Severity Reaction Last Updated Verified Qjukoux-Oup-Egh Reductase Inhibitor Allergy Intermediate 10/21/18 Yes Physical Exam Physical Exam Constitutional: Well developed, well nourished, no acute distress, non-toxic appearance. [] HENT: Normocephalic, atraumatic, bilateral external ears normal, oropharynx moist, no oral exudates, nose has toilet paper sticking out of both nares with blood coming out of left nare, and blood on left cheek. Eyes: PERRLA, EOMI, conjunctiva normal, no discharge. [] Neck: Normal range of motion, no tenderness, supple, no stridor. [] Cardiovascular:Heart rate regular rhythm, no murmur [] Lungs & Thorax: Bilateral breath sounds clear to auscultation [] Abdomen: Bowel sounds normal, soft, no tenderness, no masses, no pulsatile m asses. [] Skin: Warm, dry, no erythema, no rash. [] Back: No tenderness, no CVA tenderness. [] Extremities: No tenderness, no cyanosis, no clubbing, ROM intact, no edema. [] Neurologic: Alert and oriented X 3, normal motor function, normal sensory function, no focal deficits noted. [] Psychologic: Affect normal, judgement normal, mood normal. [] Current Patient Data Vital Signs Vital Signs Date Time Temp Pulse Resp B/P (MAP) Pulse Ox O2 Delivery O2 Flow Rate FiO2 12/19/18 13:01 97.6 108 16 138/74 (95) 98 Room Air 97.6 Lab Values Laboratory Tests Test 12/19/18 14:20 White Blood Count 6.0 x10^3/uL (4.0-11.0) Red Blood Count 4.29 x10^6/uL (4.30-5.70) L Hemoglobin 13.8 g/dL (13.0-17.5) Hematocrit 41.5 % (39.0-53.0) Mean Corpuscular Volume 97 fL (79-100) Mean Corpuscular Hemoglobin 32 pg (25-35) Mean Corpuscular Hemoglobin Concent 33 g/dL (31-37) Red Cell Distribution Width 14.8 % (11.5-14.5) H Platelet Count 64 x10^3/uL (140-400) L Neutrophils (%) (Auto) 64 % (31-73) Lymphocytes (%) (Auto) 17 % (24-48) L Monocytes (%) (Auto) 16 % (0-9) H Eosinophils (%) (Auto) 2 % (0-3) Basophils (%) (Auto) 1 % (0-3) Neutrophils # (Auto) 3.9 x10^3/uL (1.8-7.7) Lymphocytes # (Auto) 1.0 x10^3/uL (1.0-4.8) Monocytes # (Auto) 1.0 x10^3/uL (0.0-1.1) Eosinophils # (Auto) 0.1 x10^3/uL (0.0-0.7) Basophils # (Auto) 0.0 x10^3/uL (0.0-0.2) Prothrombin Time 15.0 SEC (11.7-14.0) H Prothrombin Time INR 1.2 (0.8-1.1) H Activated Partial Thromboplast Time 26 SEC (24-38) Sodium Level 138 mmol/L (136-145) Potassium Level 4.5 mmol/L (3.5-5.1) Chloride Level 99 mmol/L (98-107) Carbon Dioxide Level 29 mmol/L (21-32) Anion Gap 10 (6-14) Blood Urea Nitrogen 29 mg/dL (8-26) H Creatinine 1.0 mg/dL (0.7-1.3) Estimated GFR (Cockcroft-Gault) 72.1 BUN/Creatinine Ratio 29 (6-20) H Glucose Level 69 mg/dL (70-99) L Calcium Level 9.7 mg/dL (8.5-10.1) Total Bilirubin 1.6 mg/dL (0.2-1.0) H Aspartate Amino Transferase (AST) 36 U/L (15-37) Alanine Aminotransferase (ALT) 30 U/L (16-63) Alkaline Phosphatase 62 U/L (46-116) Total Protein 6.2 g/dL (6.4-8.2) L Albumin 3.2 g/dL (3.4-5.0) L Albumin/Globulin Ratio 1.1 (1.0-1.7) Laboratory Tests 12/19/18 14:20 Laboratory Tests 12/19/18 14:20 EKG EKG [] Radiology/Procedures Radiology/Procedures placed rhino rocket with 500 mg of TXA in patient R nostril. Instructed patient not to blow his nose.[] Course & Med Decision Making Course & Med Decision Making Pertinent Labs and Imaging studies reviewed. (See chart for details) Will use rhino rockets, and place TXA on rhino rockets. Will also order labs to check platelets and hemoglobin. Platelets are 64. Discussed with Dr. Hassan who agreed to accept for admission. Will consult Dr. Myles. Benedict Disclaimer Benedict Disclaimer This electronic medical record was generated, in whole or in part, using a voice recognition dictation system. Departure Departure Impression: Primary Impression: Epistaxis Additional Impression: Thrombocytopenia Disposition: 09 ADMITTED INPATIENT Admitting Physician: Wendi Hassan Condition: STABLE Referrals: Jose HASSAN MD (PCP) Problem Qualifiers GLENYS RAJAN APRN Dec 19, 2018 13:14
[2018-12-19 14:31] LABS: BASO % 1 % (0-3); EOS # 0.1 x10^3/uL (0.0-0.7); EOS % 2 % (0-3); HEMATOCRIT 41.5 % (39.0-53.0); HEMOGLOBIN 13.8 g/dL (13.0-17.5); LYMPH % 17 % (24-48); MEAN CORPUSCULAR HEMOGLOBIN 32 pg (25-35); MEAN CORPUSCULAR HGB CONC 33 g/dL (31-37); MEAN CORPUSCULAR VOLUME 97 fL (79-100); MONO % 16 % (0-9); NEUT # 3.9 x10^3/uL (1.8-7.7); NEUT % 64 % (31-73); PLATELET COUNT 64 x10^3/uL (140-400); RED BLOOD COUNT 4.29 x10^6/uL (4.30-5.70); RED CELL DISTRIBUTION WIDTH 14.8 % (11.5-14.5)
[2018-12-19 14:43] LABS: CALCIUM 9.7 mg/dL (8.5-10.1); GFR 72.1; POTASSIUM 4.5 mmol/L (3.5-5.1)
[2018-12-19 14:48] LABS: ALBUMIN 3.2 g/dL (3.4-5.0); ALBUMIN/GLOBULIN RATIO 1.1 (1.0-1.7); TOTAL BILIRUBIN 1.6 mg/dL (0.2-1.0); TOTAL PROTEIN 6.2 g/dL (6.4-8.2)
[2018-12-19] MEDS ORDERED: ONDANSETRON PF 4 MG/2 ML VIAL. IV PRN (15:00)
[2018-12-19 17:00] VITALS: BP 127/76
[2018-12-19] MEDS: FUROSEMIDE 40 MG TABLET. PO SCH (17:30)
[2018-12-19] MEDS ORDERED: HYDROcodone/APAP 7.5/325MG 1 TAB TABLET PO PRN (17:30)
[2018-12-19] MEDS: POTASSIUM CHLORIDE 10 MEQ TABLET.ER. PO SCH (17:51)
[2018-12-19] MEDS: CHOLECALCIFEROL (VITAMIN D3) 1,000 UNIT TABLET PO SCH (17:51)
[2018-12-19] MEDS: ALLOPURINOL 100 MG TABLET. PO SCH (17:52)
[2018-12-19] MEDS: METHOCARBAMOL 750 MG TABLET PO SCH ×2 (17:52→21:38)
[2018-12-19] MEDS ORDERED: PHYTONADIONE 10 MG/ML ORAL SOLUTION. PO ONE (18:00)
[2018-12-19 19:05] VITALS: BP 129/76
[2018-12-19] MEDS ORDERED: NON FORMULARY ITEM (Albuterol Sulfate (Albuterol Sulfate Hfa Inhaler) 2 PUFF) INH SCH (20:00)
[2018-12-19] MEDS: ALBUTEROL SULFATE 2.5 MG/3 ML NEBU. NEB SCH (21:04)
[2018-12-19] MEDS: levETIRAcetam 250 MG TABLET PO SCH (21:37)
[2018-12-19] MEDS: METOPROLOL TART IMMED RELEASE 50 MG TABLET. PO SCH (21:38)
--- NOTE | 2018-12-19 22:50 | CONS ---
DATE OF CONSULTATION: 12/19/2018 MEDICAL ONCOLOGY HEMATOLOGY CONSULTATION REQUESTING PHYSICIAN: Dr. Ramy Rausch. REASON FOR CONSULTATION: Thrombocytopenia, now admitted with epistaxis. HISTORY OF PRESENT ILLNESS: The patient is a 78-year-old gentleman who was noted to have thrombocytopenia in 07/2018 when the platelet count was 113,000. He had a normal platelet count in April of 2018. Hepatitis panel was negative. He underwent a bone marrow biopsy on 08/27/2018 that revealed no significant changes. No evidence of myelodysplastic syndrome or leukemia or lymphoma. He follows Dr. 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 His platelet counts are usually in the low 100s. His platelet count on 12/19/2018 was noted to be 64,000 and hence I was consulted. His previous platelet count in 09/2018 was 113. He presented to the Emergency Room on 12/19/2018 with severe nosebleeds from the left nostril since 7 a.m. He went to [facility] and he was discharged after a couple of hours and they tried to cauterize his left nostril region, bleeding started again and he came to [facility]. He was evaluated by ER physician. He used Rhino Rockets and was subsequently admitted to the hospital. Bleeding has stopped after nasal packing. PAST MEDICAL HISTORY: Atrial fibrillation, prior history of Coumadin use, which was stopped because of falls, bleeding risk; he was then placed on aspirin; back pain, prostate cancer, COPD, coronary artery disease, diabetes mellitus, gout, degenerative disk disease, hypertension, hyperlipidemia, meningioma, peripheral neuropathy, seizure disorder. SOCIAL HISTORY: He is , former smoker. He is a former smoker. FAMILY HISTORY: Positive for stroke, diabetes and colon cancer. REVIEW OF SYSTEMS: A 12-point review of system was performed. Pertinent positives are mentioned in the history of present illness. Rest of the system review is negative. PHYSICAL EXAMINATION: GENERAL APPEARANCE: The patient is a 78-year-old gentleman who is in no acute cardiorespiratory distress. VITAL SIGNS: Blood pressure 112/70, temperature 97.6. HEENT: Head is atraumatic, normocephalic. EYES: No icterus. NECK: Supple. CHEST: Bilaterally symmetrical. HEART: S1, S2 normal. ABDOMEN: Soft, nontender. CENTRAL NERVOUS SYSTEM: No focal deficits. LYMPHATICS: No lymphadenopathy. SKIN: No rashes. PSYCHOLOGIC: Mood and affect are appropriate. LABORATORY DATA: WBC 6, hemoglobin 13.8, platelet count 64,000. Creatinine 1.0, total bilirubin 1.6. IMPRESSION AND PLAN: 1. Thrombocytopenia since 07/2018. Bone marrow biopsy on 08/27/2018 was unremarkable. Hence, I agree with Dr. 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 I will continue to monitor platelet counts and plan to initiate treatment with prednisone if the platelets drop to below 30. At this time, the nasal bleeding has stopped with one dose of tranexamic acid and nasal packing. I will continue to monitor for bleeding. If he has recurrent bleeding, then he would need platelet transfusion. I discussed in detail with the patient and he understands and agrees with the plan. 2. Back pain, status post spine surgery. 3. Coronary artery disease. 4. Epistaxis. Continue management per Dr. Rausch. OMERO ARCE MD DR: ORQUIDEA/nts JOB#: [id number] / [id number] COMFORT
[2018-12-19 23:05] VITALS: BP 111/65
[2018-12-20 03:05] VITALS: BP 133/80
[2018-12-20 07:00] VITALS: BP 153/66
[2018-12-20 07:23] LABS: BASO % 1 % (0-3); EOS # 0.1 x10^3/uL (0.0-0.7); EOS % 2 % (0-3); HEMATOCRIT 39.2 % (39.0-53.0); HEMOGLOBIN 13.1 g/dL (13.0-17.5); LYMPH # 0.8 x10^3/uL (1.0-4.8); LYMPH % 15 % (24-48); MEAN CORPUSCULAR HEMOGLOBIN 32 pg (25-35); MEAN CORPUSCULAR HGB CONC 33 g/dL (31-37); MEAN CORPUSCULAR VOLUME 96 fL (79-100); MONO # 0.9 x10^3/uL (0.0-1.1); MONO % 15 % (0-9); NEUT # 3.8 x10^3/uL (1.8-7.7); NEUT % 68 % (31-73); PLATELET COUNT 62 x10^3/uL (140-400); RED BLOOD COUNT 4.09 x10^6/uL (4.30-5.70); RED CELL DISTRIBUTION WIDTH 14.6 % (11.5-14.5); WHITE BLOOD COUNT 5.6 x10^3/uL (4.0-11.0)
[2018-12-20] MEDS: ALBUTEROL SULFATE 2.5 MG/3 ML NEBU. NEB SCH ×2 (07:36→10:00)
[2018-12-20 08:26] LABS: PROTHROMBIN TIME PATIENT 13.6 SEC (11.7-14.0)
[2018-12-20] MEDS: POTASSIUM CHLORIDE 10 MEQ TABLET.ER. PO SCH (08:45)
[2018-12-20] MEDS: METHOCARBAMOL 750 MG TABLET PO SCH (08:45)
[2018-12-20] MEDS: CHOLECALCIFEROL (VITAMIN D3) 1,000 UNIT TABLET PO SCH (08:46)
[2018-12-20] MEDS: METOPROLOL TART IMMED RELEASE 50 MG TABLET. PO SCH (08:46)
[2018-12-20] MEDS: levETIRAcetam 250 MG TABLET PO SCH (08:46)
[2018-12-20] MEDS: FUROSEMIDE 40 MG TABLET. PO SCH (08:46)
[2018-12-20] MEDS: ALLOPURINOL 100 MG TABLET. PO SCH (08:46)
[2018-12-20] MEDS ORDERED: NON FORMULARY ITEM (Gluc 2KCL/Chondr/Coll Hy/Hy Ac (Glucosamine & Chondroitin Cap) 1 EACH) PO SCH (09:00)
[2018-12-20] MEDS ORDERED: MAGNESIUM AMINO ACID CHELATE PO SCH (09:00)
[2018-12-20 11:00] VITALS: BP 126/77
--- NOTE | 2018-12-20 11:20 | PDOC ---
Provider Note Provider Note combined H&P and DC summary dictated # [id number] Jose HASSAN MD Dec 20, 2018 11:20
--- NOTE | 2018-12-20 11:46 | HP ---
ADMIT DATE: 12/20/2018 HISTORY AND PHYSICAL AND DISCHARGE SUMMARY ADMISSION DIAGNOSES: Epistaxis with thrombocytopenia. DISCHARGE DIAGNOSES: Epistaxis with thrombocytopenia. HISTORY OF PRESENT ILLNESS: This 78-year-old white male who presented to [facility] Emergency Room because of epistaxis. They packed his nose there and the bleeding appeared to stop. They told him he would need to follow up with ENT doctor. His nose started bleeding again later in the day, he presented to [place] [facility] where it was once again packed. He has not had any bleeding since then. There is no ENT here at [place] on staff, though. He was admitted overnight to observe for further bleeding and to evaluate thrombocytopenia. His platelets were normal. Last year, they were noted to be a little bit low, in 07/2018, 113,000 but 64,0000 yesterday and repeating this morning at 62. It was not felt that by Dr. Myles, embedded software developer that his thrombocytopenia has anything to do with his epistaxis. His INR was noted to be 1.2. He was given an oral dose of vitamin K and this morning is 1.1. PAST MEDICAL HISTORY: Significant for chronic atrial fib, hypertension, type 2 diabetes, brain tumor, osteoarthritis, hearing loss, gout, varicose veins, chronic back pain from spinal stenosis. 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 He was to have a followup appointment today with Dr. Hewitt. He has also had a laparoscopic cholecystectomy, prostate surgery, amputated toes in 2015 due to [place] exposure. ALLERGIES: HE HAS AN ALLERGY TO STATINS CAUSING SWELLING. ROUTINE MEDICATIONS: Include naproxen 250 mg b.i.d., fish oil 1200 mg b.i.d., multivitamin daily, glucosamine chondroitin tablet t.i.d., capsaicin topical 0.025% cream b.i.d., metoprolol tartrate 50 mg half a tablet b.i.d., DuoNeb nebulized q.i.d. as needed, budesonide 180 mcg inhaled b.i.d., albuterol inhaler 2 puffs q.i.d., gabapentin 100 mg daily, potassium chloride 10 mEq b.i.d., furosemide 40 mg daily, vitamin D3 1000 units 3 capsules twice a day, vitamin C daily, magnesium oxide 400 mg daily, hydrocodone/Apap 7.5/325 mg 1-2 q4-6h. as needed for pain, tamsulosin 0.4 mg at bedtime, allopurinol 100 mg 2 tabs daily, levetiracetam 500 mg 1-1/2 tabs b.i.d., aspirin 81 mg daily, diclofenac topical 1% gel q.i.d. p.r.n. FAMILY HISTORY: Mother is at age 78 from cancer, diabetes, emphysema, hypertension and his father is at age 79, he had a pacemaker, diabetes, heart attack, hypertension, heart disease, kidney disease. He has 2 brothers and a sister. Brothers had coronary artery disease with stents and cancer. SOCIAL HISTORY: He is a former smoker, last smoked over 10 years ago. No significant alcohol intake. He lives alone, is . No history of substance abuse. REVIEW OF SYSTEMS: CONSTITUTIONAL: No fever or chills. ENT: As above with epistaxis. HEENT: He has glasses. CARDIAC: Negative for chest pain or palpitations. PULMONARY: Negative for cough or shortness of breath. GASTROINTESTINAL: Negative for nausea, vomiting, no change in his bowels. No blood in the stools. GENITOURINARY: No dysuria or discolored urine. MUSCULOSKELETAL: Recovering still from back surgeries. Pain improved significantly as his activity level. NEUROLOGIC: He has diminished sensation in his feet from neuropathy. PSYCHIATRIC: No depression or mood issues. PHYSICAL EXAMINATION: VITAL SIGNS: Have been unremarkable. Blood pressures ranged from 130/80-153/66. Heart has been irregular, rate has been controlled. He is 97% saturated on room air. GENERAL: He is in no acute distress, awake and alert and oriented. He does have a packing in his left nostril which is comfortable. He is breathing easily through the right nostril. Oral mucosa is moist. NECK: Supple, no bruit. HEART: Regular, no murmur. LUNGS: Clear to auscultation. ABDOMEN: Soft, nondistended, nontender. SKIN: Not showing any bruising. Strength is adequate. NEUROLOGIC: Shows some diminished sensation in his feet. Gait is stable. LABORATORY DATA: INR dropped from 1.2 to 1.1 overnight. His hemoglobin dropped from 13.8 to 13.1. His platelets dropped from 64,000 to 62,000. Chemistries show BUN slightly elevated at 29 and creatinine of 1. Normal electrolytes. His glucose was 82 this morning. Total bilirubin is 1.6, albumin is 3.2. No imaging studies were done. HOSPITAL COURSE: No bleeding overnight. His counts are stable. He has been seen by Hematology. Thrombocytopenia is not worrisome. PLAN: Will be discharged home. He will try to make an ENT appointment for later today or next week with Dr. Anya Stewart. He has previously seen Dr. Garcia prior to his skilled nursing. His home meds will be continued with the exception of the fish oil. Diet and activity as tolerated. He will follow up with me in a week or two. He will also reschedule his followup appointment with Dr. Hewitt, but his lumbar incision has healed nicely and his surgery was certainly beneficial. W Ben HASSAN MD DR: STEPHAN/chas JOB#: [id number] / [id number]
--- NOTE | 2018-12-20 12:03 | PDOC ---
PROGRESS NOTES Subjective Subjective HPI - f/u of Thrombocytopenia ROS - no epistaxis, nasal packing intact Objective Objective Vital Signs Date Time Temp Pulse Resp B/P (MAP) Pulse Ox O2 Delivery O2 Flow Rate FiO2 12/20/18 08:48 81 153/66 12/20/18 07:50 Room Air 12/20/18 07:37 97 12/20/18 07:00 97.9 16 97.9 Intake and Output 12/20/18 06:59 Intake Total 100 ml Balance 100 ml Intake Oral 100 ml # Voids 3 # Bowel Movements 1 Physical Exam Heart: Normal S1, Normal S2 General: Alert, Oriented X3 Lungs: Clear to auscultation Neuro: Normal speech Psych/Mental Status: Mental status NL Assessment Assessment Problems Medical Problems: (1) CAD (coronary artery disease) Status: Chronic (2) Epistaxis Status: Acute (3) Thrombocytopenia Status: Acute IMPRESSION AND PLAN: 1. Thrombocytopenia since 07/2018. Bone marrow biopsy on 08/27/2018 was unremarkable. Hence, I agree with Dr. 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 I will continue to monitor platelet counts and plan to initiate treatment with prednisone if the platelets drop to below 30. At this time, the nasal bleeding has stopped with one dose of tranexamic acid and nasal packing. I will continue to monitor for bleeding. If he has recurrent bleeding, then he would need platelet transfusion. I discussed in detail with the patient and he understands and agrees with the plan. Plt now 62. No new bleed. I d/w Dr Rausch. 2. Back pain, status post spine surgery. 3. Coronary artery disease. 4. Epistaxis. Continue management per Dr. Rausch. ENT consult per Dr Rausch. Comment Review of Relevant I have reviewed the following items peyman (where applicable) has been applied. Labs Laboratory Tests Test 12/19/18 14:20 12/20/18 06:15 12/20/18 08:03 White Blood Count 6.0 x10^3/uL (4.0-11.0) 5.6 x10^3/uL (4.0-11.0) Red Blood Count 4.29 x10^6/uL (4.30-5.70) 4.09 x10^6/uL (4.30-5.70) Hemoglobin 13.8 g/dL (13.0-17.5) 13.1 g/dL (13.0-17.5) Hematocrit 41.5 % (39.0-53.0) 39.2 % (39.0-53.0) Mean Corpuscular Volume 97 fL (79-100) 96 fL (79-100) Mean Corpuscular Hemoglobin 32 pg (25-35) 32 pg (25-35) Mean Corpuscular Hemoglobin Concent 33 g/dL (31-37) 33 g/dL (31-37) Red Cell Distribution Width 14.8 % (11.5-14.5) 14.6 % (11.5-14.5) Platelet Count 64 x10^3/uL (140-400) 62 x10^3/uL (140-400) Neutrophils (%) (Auto) 64 % (31-73) 68 % (31-73) Lymphocytes (%) (Auto) 17 % (24-48) 15 % (24-48) Monocytes (%) (Auto) 16 % (0-9) 15 % (0-9) Eosinophils (%) (Auto) 2 % (0-3) 2 % (0-3) Basophils (%) (Auto) 1 % (0-3) 1 % (0-3) Neutrophils # (Auto) 3.9 x10^3/uL (1.8-7.7) 3.8 x10^3/uL (1.8-7.7) Lymphocytes # (Auto) 1.0 x10^3/uL (1.0-4.8) 0.8 x10^3/uL (1.0-4.8) Monocytes # (Auto) 1.0 x10^3/uL (0.0-1.1) 0.9 x10^3/uL (0.0-1.1) Eosinophils # (Auto) 0.1 x10^3/uL (0.0-0.7) 0.1 x10^3/uL (0.0-0.7) Basophils # (Auto) 0.0 x10^3/uL (0.0-0.2) 0.0 x10^3/uL (0.0-0.2) Prothrombin Time 15.0 SEC (11.7-14.0) 13.6 SEC (11.7-14.0) Prothromb Time International Ratio 1.2 (0.8-1.1) 1.1 (0.8-1.1) Activated Partial Thromboplast Time 26 SEC (24-38) Sodium Level 138 mmol/L (136-145) Potassium Level 4.5 mmol/L (3.5-5.1) Chloride Level 99 mmol/L (98-107) Carbon Dioxide Level 29 mmol/L (21-32) Anion Gap 10 (6-14) Blood Urea Nitrogen 29 mg/dL (8-26) Creatinine 1.0 mg/dL (0.7-1.3) Estimated GFR (Cockcroft-Gault) 72.1 BUN/Creatinine Ratio 29 (6-20) Glucose Level 69 mg/dL (70-99) Calcium Level 9.7 mg/dL (8.5-10.1) Total Bilirubin 1.6 mg/dL (0.2-1.0) Aspartate Amino Transf (AST/SGOT) 36 U/L (15-37) Alanine Aminotransferase (ALT/SGPT) 30 U/L (16-63) Alkaline Phosphatase 62 U/L (46-116) Total Protein 6.2 g/dL (6.4-8.2) Albumin 3.2 g/dL (3.4-5.0) Albumin/Globulin Ratio 1.1 (1.0-1.7) Glucose (Fingerstick) 82 mg/dL (70-99) Laboratory Tests Test 12/19/18 14:20 12/20/18 06:15 12/20/18 08:03 White Blood Count 6.0 x10^3/uL (4.0-11.0) 5.6 x10^3/uL (4.0-11.0) Red Blood Count 4.29 x10^6/uL (4.30-5.70) 4.09 x10^6/uL (4.30-5.70) Hemoglobin 13.8 g/dL (13.0-17.5) 13.1 g/dL (13.0-17.5) Hematocrit 41.5 % (39.0-53.0) 39.2 % (39.0-53.0) Mean Corpuscular Volume 97 fL (79-100) 96 fL (79-100) Mean Corpuscular Hemoglobin 32 pg (25-35) 32 pg (25-35) Mean Corpuscular Hemoglobin Concent 33 g/dL (31-37) 33 g/dL (31-37) Red Cell Distribution Width 14.8 % (11.5-14.5) 14.6 % (11.5-14.5) Platelet Count 64 x10^3/uL (140-400) 62 x10^3/uL (140-400) Neutrophils (%) (Auto) 64 % (31-73) 68 % (31-73) Lymphocytes (%) (Auto) 17 % (24-48) 15 % (24-48) Monocytes (%) (Auto) 16 % (0-9) 15 % (0-9) Eosinophils (%) (Auto) 2 % (0-3) 2 % (0-3) Basophils (%) (Auto) 1 % (0-3) 1 % (0-3) Neutrophils # (Auto) 3.9 x10^3/uL (1.8-7.7) 3.8 x10^3/uL (1.8-7.7) Lymphocytes # (Auto) 1.0 x10^3/uL (1.0-4.8) 0.8 x10^3/uL (1.0-4.8) Monocytes # (Auto) 1.0 x10^3/uL (0.0-1.1) 0.9 x10^3/uL (0.0-1.1) Eosinophils # (Auto) 0.1 x10^3/uL (0.0-0.7) 0.1 x10^3/uL (0.0-0.7) Basophils # (Auto) 0.0 x10^3/uL (0.0-0.2) 0.0 x10^3/uL (0.0-0.2) Prothrombin Time 15.0 SEC (11.7-14.0) 13.6 SEC (11.7-14.0) Prothromb Time International Ratio 1.2 (0.8-1.1) 1.1 (0.8-1.1) Activated Partial Thromboplast Time 26 SEC (24-38) Sodium Level 138 mmol/L (136-145) Potassium Level 4.5 mmol/L (3.5-5.1) Chloride Level 99 mmol/L (98-107) Carbon Dioxide Level 29 mmol/L (21-32) Anion Gap 10 (6-14) Blood Urea Nitrogen 29 mg/dL (8-26) Creatinine 1.0 mg/dL (0.7-1.3) Estimated GFR (Cockcroft-Gault) 72.1 BUN/Creatinine Ratio 29 (6-20) Glucose Level 69 mg/dL (70-99) Calcium Level 9.7 mg/dL (8.5-10.1) Total Bilirubin 1.6 mg/dL (0.2-1.0) Aspartate Amino Transf (AST/SGOT) 36 U/L (15-37) Alanine Aminotransferase (ALT/SGPT) 30 U/L (16-63) Alkaline Phosphatase 62 U/L (46-116) Total Protein 6.2 g/dL (6.4-8.2) Albumin 3.2 g/dL (3.4-5.0) Albumin/Globulin Ratio 1.1 (1.0-1.7) Glucose (Fingerstick) 82 mg/dL (70-99) Medications Current Medications Tranexamic Acid (Cyklokapron) 500 mg 1X STAT INJ Last administered on at 14:35; Start 12/19/18 at 13:11; Stop 12/19/18 at 13:12; Status DC Ondansetron HCl (Zofran) 4 mg PRN Q8HRS PRN IV NAUSEA/VOMITING; Start 12/19/18 at 15:00; Stop 12/20/18 at 14:59 Allopurinol (Zyloprim) 200 mg DAILY PO Last administered on 12/20/18at 08:48; Start 12/19/18 at 17:30 Vitamin D (Vitamin D3) 2,000 unit DAILY PO Last administered on 12/20/18 08:48; Start 12/19/18 at 17:30 Diltiazem HCl (Cardizem 24hr Cd) 120 mg DAILY PO Last administered on 12/20/18at 08:48; Start 12/19/18 at 17:30 Furosemide (Lasix) 40 mg DAILY PO Last administered on 12/20/18at 08:48; Start 12/19/18 at 17:30 Acetaminophen/ Hydrocodone Bitart (Lortab 7.5/325) 1 tab PRN Q4HRS PRN PO PAIN; Start 12/19/18 at 17:30 Levetiracetam (Keppra) 750 mg BID PO Last administered on 12/20/18 08:48; Start 12/19/18 at 21:00 Methocarbamol (Robaxin) 750 mg TID PO Last administered on 12/20/18 08:48; Start 12/19/18 at 17:30 Metoprolol Tartrate (Lopressor) 50 mg BID PO Last administered on 12/20/18 08:48; Start 12/19/18 at 21:00 Non-Formulary Medication (Albuterol Sulfate (Albuterol Sulfate Hfa Inhaler)) 2 puff Q4HRS INH ; Start 12/19/18 at 20:00; Status UNV Non-Formulary Medication (Gluc 2KCL/ Chondr/Mara Hy/Hy Ac (Glucosamine & Chondroitin Cap)) 1 each DAILY PO ; Start 12/20/18 at 09:00; Status UNV Non-Formulary Medication (Magnesium Amino Acid Chelate (Magnesium)) 27 mg DAILY PO ; Start 12/20/18 at 09:00; Status UNV Potassium Chloride (Klor-Con) 10 meq BIDWMEALS PO Last administered on 12/20/18 08:48; Start 12/19/18 at 17:30 Albuterol Sulfate (Ventolin Neb Soln) 2.5 mg Q4HRS W/A NEB Last administered on 12/20/18at 07:36; Start 12/19/18 at 18:00 Phytonadione (Mephyton Oral Soln) 5 mg 1X ONCE PO Last administered on 12/19/18at 17:54; Start 12/19/18 at 18:00; Stop 12/19/18 at 18:01; Status DC Active Scripts Active Robaxin-750 (Methocarbamol) 750 Mg Tablet 1 Tab PO TID Hydrocodone-Apap 7.5-325 (Hydrocodone Bit/Acetaminophen) 1 Tab Tablet 1 Tab PO PRN Q4HRS PRN Reported Levetiracetam 500 Mg Tablet 750 Mg PO BID Magnesium (Magnesium Amino Acid Chelate) 27 Mg Tablet 27 Mg PO DAILY Glucosamine & Chondroitin Cap (Gluc 2KCL/Chondr/Mara Hy/Hy Ac) 1 Each Capsule 1 Each PO DAILY Furosemide 40 Mg Tablet 1 Tab PO DAILY Metoprolol Tartrate 50 Mg Tablet 1 Tab PO BID Diltiazem 24HR Cd (Diltiazem Hcl) 120 Mg Cap.er.24h 1 Cap PO DAILY Maximum Daily Multivitamin (Multivit With Calcium,Iron,Min) 1 Each Tablet 1 Each PO K-Tab ER (Potassium Chloride) 20 Meq Tablet.er 10 Meq PO BID Vitamin D (Cholecalciferol (Vitamin D3)) 1,000 Unit Tablet 2,000 Unit PO DAILY Allopurinol 100 Mg Tablet 200 Tab PO DAILY Albuterol Sulfate Hfa Inhaler (Albuterol Sulfate) 8.5 Gm Hfa.aer.ad 2 Puff INH Q4HRS Vitals/I & O Vital Sign - Last 24 Hours 12/19/18 12/19/18 12/19/18 12/19/18 12:58 13:01 16:27 17:00 Temp 97.6 97.6 97.6 97.6 Pulse 96 108 86 95 Resp 18 16 26 16 B/P (MAP) 138/74 (95) 138/74 (95) 112/70 (84) 127/76 (93) Pulse Ox 98 95 O2 Delivery Room Air Room Air Room Air Room Air 12/19/18 12/19/18 12/19/18 12/19/18 17:54 18:17 19:05 20:00 Temp 97.9 97.9 Pulse 85 84 Resp 16 B/P (MAP) 127/36 129/76 (93) Pulse Ox 97 O2 Delivery Room Air Room Air Room Air 12/19/18 12/19/18 12/19/18 12/20/18 21:16 21:38 23:05 03:05 Temp 98.5 97.6 98.5 97.6 Pulse 84 84 80 Resp 16 16 B/P (MAP) 129/76 111/65 (80) 133/80 (97) Pulse Ox 96 93 97 O2 Delivery Room Air Room Air 12/20/18 12/20/18 12/20/18 12/20/18 07:00 07:37 07:50 08:48 Temp 97.9 97.9 Pulse 81 81 Resp 16 B/P (MAP) 153/66 (95) 153/66 Pulse Ox 98 97 O2 Delivery Room Air Room Air Room Air 12/20/18 08:48 Pulse 81 B/P (MAP) 153/66 Intake and Output 12/19/18 12/19/18 12/20/18 14:59 22:59 06:59 Intake Total 100 ml Balance 100 ml OMERO ARCE MD Dec 20, 2018 12:03
--- NOTE | 2018-12-20 15:05 | NUR ---
Discharge Note: Patient was discharged home with self care. Patients friend at the bedside at the time of discharge education. Patient was given discharge summary/instructions, follow-ups, and educational material. Patient already had a appointment scheduled with Dr. Stewart ENT at the [facility] for Sunday12/23/18 to remove the rhino rocket. Patient also had set an appointment with Dr. Mathew for Sunday12/27/18 and would call to schedule an appointment with Dr. Rausch later today. Patient did not have any further questions or concerns. Patient was taken down to the main entrance via wheelchair with all personal belongings accompanied by LEOBARDO Peralta, where patients friend was waiting for him to take him home.
== END 2018-12-20 13:30 | disposition home or self-care (01) | DRG 813 ==
LOC: ER 12:48 → 6 SOUTH 14:55
PROVIDERS: ADMIT Family Medicine; ATTEND Family Medicine
DX: D69.3 Immune thrombocytopenic purpura (principal); R04.0 Epistaxis; E11.42 Type 2 diabetes mellitus with diabetic polyneuropathy; E78.5 Hyperlipidemia, unspecified; G40.909 Epilepsy, unspecified, not intractable, without status epilepticus; I10 Essential (primary) hypertension; M10.9 Gout, unspecified; I25.10 Atherosclerotic heart disease of native coronary artery without angina pectoris; I48.2 Chronic atrial fibrillation; G89.29 Other chronic pain; M19.90 Unspecified osteoarthritis, unspecified site; J44.9 Chronic obstructive pulmonary disease, unspecified; Z80.0 Family history of malignant neoplasm of digestive organs; Z82.3 Family history of stroke; Z82.49 Family history of ischemic heart disease and other diseases of the circulatory system; Z82.5 Family history of asthma and other chronic lower respiratory diseases; Z83.3 Family history of diabetes mellitus; Z85.46 Personal history of malignant neoplasm of prostate; Z86.011 Personal history of benign neoplasm of the brain; Z87.891 Personal history of nicotine dependence; Z90.49 Acquired absence of other specified parts of digestive tract; Z88.8 Allergy status to other drugs, medicaments and biological substances
CPT/HCPCS: 30901; 36415; 80053; 82962; 85025; 85610; 85730; 94640; J7613; 99285-25; G0378

== ENCOUNTER → 2019-01-14 | Outpatient (CLI) | payer MEDICARE, OTHER ==
[2018-12-20 11:00] VITALS: BP 126/77
[~2019-01-14] MED LIST changes: -DILT120C85 PO; +DILT120C99 PO; -KETO5DRO OP; +KETO5DRO9 OP
--- NOTE | 2019-01-14 08:44 | RAD ---
Examination: Ultrasound abdomen limited HISTORY: History of thrombocytopenia COMPARISON: None available FINDINGS: The spleen measures 11.2 cm in length. IMPRESSION: The spleen is within normal limits. Electronically signed by: Marcos Coon MD (01/14/2019 8:40 AM) [id number]
== END | disposition home or self-care (01) ==
LOC: US 07:45
PROVIDERS: ATTEND Internal Medicine Hematology & Oncology
DX: D69.6 Thrombocytopenia, unspecified (principal); M54.9 Dorsalgia, unspecified
CPT/HCPCS: 76705

== ENCOUNTER 2019-01-28 13:28 | Emergency (ER) | payer MEDICARE, OTHER ==
[~2019-01-28] VITALS: Ht 188 cm; Wt 98.0 kg
[2019-01-28 14:28] LABS: BASO % 1 % (0-3); EOS # 0.1 x10^3/uL (0.0-0.7); EOS % 1 % (0-3); HEMATOCRIT 48.8 % (39.0-53.0); LYMPH # 1.2 x10^3/uL (1.0-4.8); LYMPH % 23 % (24-48); MEAN CORPUSCULAR HEMOGLOBIN 32 pg (25-35); MEAN CORPUSCULAR HGB CONC 33 g/dL (31-37); MEAN CORPUSCULAR VOLUME 97 fL (79-100); MONO # 0.5 x10^3/uL (0.0-1.1); MONO % 10 % (0-9); NEUT # 3.4 x10^3/uL (1.8-7.7); NEUT % 65 % (31-73); PLATELET COUNT 102 x10^3/uL (140-400); RED BLOOD COUNT 5.05 x10^6/uL (4.30-5.70); RED CELL DISTRIBUTION WIDTH 15.5 % (11.5-14.5); WHITE BLOOD COUNT 5.2 x10^3/uL (4.0-11.0)
--- NOTE | 2019-01-28 14:33 | RAD ---
2 views of the sacrum and coccyx for fall. FINDINGS: There is severe lumbosacral degenerative changes and there is extensive atherosclerosis. Lateral views of sacrum due to suggest an anterior deformity which may reflect a transverse distal sacral fracture, though images are degraded slightly by motion artifact. IMPRESSION: 1. Probable transverse distal sacral fracture. Electronically signed by: Delano Lai MD (01/28/2019 2:29 PM) [id number]
--- NOTE | 2019-01-28 14:33 | RAD ---
2 views of the pelvis without comparison for fall. FINDINGS: There is no definite fracture, or acute osseous abnormality involving the pelvis. Extensive degenerative changes of the lumbosacral spine are present. Mild degenerative changes of both hips are seen. Postsurgical changes are noted and there is extensive vasculopathy. IMPRESSION: 1. No acute osseous abnormality of the bony pelvis. Electronically signed by: Delano Lai MD (01/28/2019 2:30 PM) [id number]
[2019-01-28 14:42] LABS: CALCIUM 8.6 mg/dL (8.5-10.1); CREATININE 0.7 mg/dL (0.7-1.3); GFR 108.8; POTASSIUM 3.7 mmol/L (3.5-5.1)
[2019-01-28 14:48] LABS: ALBUMIN 3.7 g/dL (3.4-5.0); ALBUMIN/GLOBULIN RATIO 1.2 (1.0-1.7); TOTAL BILIRUBIN 0.9 mg/dL (0.2-1.0); TOTAL PROTEIN 6.8 g/dL (6.4-8.2)
--- NOTE | 2019-01-28 14:57 | RAD ---
CT HEAD WO CONTRAST History: Fall, head injury, memory loss Comparison: May 04, 2018 Technique: Noncontrast CT imaging was performed of the head. Exposure: One or more of the following individualized dose reduction techniques were utilized for this examination: 1. Automated exposure control 2. Adjustment of the mA and/or kV according to patient size 3. Use of iterative reconstruction technique. Findings: No acute intracranial hemorrhage is identified. There is again focus of extra-axial density in the right parasagittal frontal region abutting the falx about 2.3 cm transverse by 1.9 cm, not significantly changed. There is no new midline shift or intra-axial mass effect. Ventricular size is stable proportionate to the sulcal spaces. There is yezg-sj-xcfbildi supratentorial atrophy. There is near complete opacification of the right maxillary sinus as seen previously. There is minimal mucosal thickening visualized left maxillary sinus. There is also some patchy ethmoid air cell mucosal thickening greater anteriorly in the left overall greater. Mastoid air cells are aerated. No acute calvarial abnormality is identified. Impression: 1. No acute intracranial abnormality is identified. 2. There is again extra-axial focus of density in the right frontal region abutting the falx, most likely consideration a meningioma, stable compared with May 2018 exam. 3. There is generalized supratentorial atrophy. 4. There is again near complete opacification of the right maxillary sinus. Electronically signed by: Tutu Gallego MD (01/28/2019 2:53 PM) [facility]
--- NOTE | 2019-01-28 15:11 | RAD ---
2 views left forearm without comparison for fall. FINDINGS: There is no definite fracture, dislocation, or acute osseous abnormality identified. Extensive vascular calcifications are seen. Mild degenerative changes about the elbow and wrist are noted. No unexpected radiopaque foreign bodies. IMPRESSION: 1. No fracture or acute osseous abnormality. Electronically signed by: Delano Lai MD (01/28/2019 3:08 PM) [id number]
[2019-01-28] MEDS ORDERED: DIPHTH,PERTUSS(ACELL),TET TOX 0.5 ML DISP.SYRIN. VAX IM ONE (15:15)
[2019-01-28] MEDS ORDERED: MULTIVIT INFUSN,ADULT 4,VIT K 10 ML, THIAMINE INJ 100 MG, FOLIC ACID INJ 1 MG in IV NOR... IV ONE (16:00)
--- NOTE | 2019-01-28 16:12 | PHYS DOC ---
Past Medical History Past Medical History: A-Fib, COPD, Diabetes-Type II, High Cholesterol, Hypertension Additional Past Medical Histor: CARDIAC [id number] Past Surgical History: Cholecystectomy, Other Additional Past Surgical Histo: BILAT BIG TOES, CATARACT, BACK SURG Alcohol Use: Occasionally Drug Use: Opiates Adult General Chief Complaint Chief Complaint: MECHANICAL FALL HPI HPI Patient is a 78-year-old male who presents after reportedly having fallen at home. Patient reportedly had been on the phone with a friend and all of a sudden he wasn't there anymore. EMS reports that respite coordinator was trying to get him home and was unable to get inside and ultimately EMS was called. Upon EMS arrival, patient was found on the floor. Patient states that he does not recall the e pisode. He denies any chest pain or shortness of breath. He does admit to a headache as well as pain in his tailbone. He rates pain in his tailbone and a 6- 7 out of 10.[] Review of Systems Review of Systems Constitutional: Denies fever or chills [] Respiratory: Denies cough or shortness of breath [] Cardiovascular: No additional information not addressed in HPI [] GI: Denies abdominal pain, nausea, vomiting or diarrhea [] Musculoskeletal: Denies back pain or joint pain [] Integument: Denies rash or skin lesions [] Neurologic: Complains of headache without focal weakness or sensory changes [] All other systems were reviewed and found to be within normal limits, except as documented in this note. Current Medications Current Medications Current Medications Medications (Trade) Dose Ordered Sig/Dejuan Start Time Stop Time Status Last Admin Dose Admin Diphtheria/ Tetanus/Acell Pertussis (Boostrix) 0.5 ml ONCE ONCE 01/28/19 15:15 01/28/19 15:16 DC 01/28/19 15:50 0.5 ML Multivitamins 10 ml/Thiamine HCl 100 mg/Folic Acid 1 mg/Sodium Chloride 1,011.2 ml @ 1,000.088 mls/hr 1X ONCE 01/28/19 16:00 01/28/19 17:00 DC 01/28/19 16:04 1,000.088 MLS/HR Allergies Allergies Allergies Coded Allergies Type Severity Reaction Last Updated Verified Gbayeup-Xhw-Vey Reductase Inhibitor Allergy Intermediate 10/21/18 Yes Physical Exam Physical Exam Constitutional: Well developed, well nourished, no acute distress, non-toxic appearance. [] HENT: Normocephalic, with small left occipital hematoma as well as a small right frontal hematoma, bilateral external ears normal, oropharynx moist, no oral exudates, nose normal. [] Eyes: PERRLA, EOMI, conjunctiva normal, no discharge. [] Neck: Normal range of motion, no tenderness, supple, no stridor. [] Cardiovascular: Mildly tachycardic rate with irregular rhythm[] Lungs & Thorax: Bilateral breath sounds clear to auscultation [] Abdomen: Bowel sounds normal, soft, no tenderness. [] Skin: Warm, dry, no erythema, with small skin tears/abrasions noted to both upper extremities. [] Back: There is tenderness to palpation overlying the distal sacrum. [] Extremities: No tenderness, no cyanosis, no clubbing, ROM intact. [] Neurologic: Alert and oriented X 3, no focal deficits noted. [] Current Patient Data Vital Signs Vital Signs Date Time Temp Pulse Resp B/P (MAP) Pulse Ox O2 Delivery O2 Flow Rate FiO2 01/28/19 16:22 112 18 94 01/28/19 13:30 97.6 171/86 (114) Room Air 97.6 Lab Values Laboratory Tests Test 01/28/19 14:15 White Blood Count 5.2 x10^3/uL (4.0-11.0) Red Blood Count 5.05 x10^6/uL (4.30-5.70) Hemoglobin 16.0 g/dL (13.0-17.5) Hematocrit 48.8 % (39.0-53.0) Mean Corpuscular Volume 97 fL (79-100) Mean Corpuscular Hemoglobin 32 pg (25-35) Mean Corpuscular Hemoglobin Concent 33 g/dL (31-37) Red Cell Distribution Width 15.5 % (11.5-14.5) H Platelet Count 102 x10^3/uL (140-400) L Neutrophils (%) (Auto) 65 % (31-73) Lymphocytes (%) (Auto) 23 % (24-48) L Monocytes (%) (Auto) 10 % (0-9) H Eosinophils (%) (Auto) 1 % (0-3) Basophils (%) (Auto) 1 % (0-3) Neutrophils # (Auto) 3.4 x10^3/uL (1.8-7.7) Lymphocytes # (Auto) 1.2 x10^3/uL (1.0-4.8) Monocytes # (Auto) 0.5 x10^3/uL (0.0-1.1) Eosinophils # (Auto) 0.1 x10^3/uL (0.0-0.7) Basophils # (Auto) 0.0 x10^3/uL (0.0-0.2) Sodium Level 142 mmol/L (136-145) Potassium Level 3.7 mmol/L (3.5-5.1) Chloride Level 100 mmol/L (98-107) Carbon Dioxide Level 30 mmol/L (21-32) Anion Gap 12 (6-14) Blood Urea Nitrogen 5 mg/dL (8-26) L Creatinine 0.7 mg/dL (0.7-1.3) Estimated GFR (Cockcroft-Gault) 108.8 BUN/Creatinine Ratio 7 (6-20) Glucose Level 80 mg/dL (70-99) Calcium Level 8.6 mg/dL (8.5-10.1) Total Bilirubin 0.9 mg/dL (0.2-1.0) Aspartate Amino Transferase (AST) 117 U/L (15-37) H Alanine Aminotransferase (ALT) 60 U/L (16-63) Alkaline Phosphatase 80 U/L (46-116) Total Protein 6.8 g/dL (6.4-8.2) Albumin 3.7 g/dL (3.4-5.0) Albumin/Globulin Ratio 1.2 (1.0-1.7) Ethyl Alcohol Level 336 mg/dL (0-10) H Laboratory Tests 01/28/19 14:15 Laboratory Tests 01/28/19 14:15 EKG EKG [] Interpretation Time: EKG demonstrates sinus rhythm with rate of 98. Radiology/Procedures Radiology/Procedures [] Impressions: PROCEDURE: SACRUM & COCCYX 3V 2 views of the sacrum and coccyx for fall. FINDINGS: There is severe lumbosacral degenerative changes and there is extensive atherosclerosis. Lateral views of sacrum due to suggest an anterior deformity which may reflect a transverse distal sacral fracture, though images are degraded slightly by motion artifact. IMPRESSION: 1. Probable transverse distal sacral fracture. Electronically signed by: Delano Lai MD (01/28/2019 2:29 PM) [email or web address] PROCEDURE: CT HEAD WO CONTRAST CT HEAD WO CONTRAST History: Fall, head injury, memory loss Comparison: May 04, 2018 Technique: Noncontrast CT imaging was performed of the head. Exposure: One or more of the following individualized dose reduction techniques were utilized for this examination: 1. Automated exposure control 2. Adjustment of the mA and/or kV according to patient size 3. Use of iterative reconstruction technique. Findings: No acute intracranial hemorrhage is identified. There is again focus of extra-axial density in the right parasagittal frontal region abutting the falx about 2.3 cm transverse by 1.9 cm, not significantly changed. There is no new midline shift or intra-axial mass effect. Ventricular size is stable proportionate to the sulcal spaces. There is sopr-gi-cqtbboii supratentorial atrophy. There is near complete opacification of the right maxillary sinus as seen previously. There is minimal mucosal thickening visualized left maxillary sinus. There is also some patchy ethmoid air cell mucosal thickening greater anteriorly in the left overall greater. Mastoid air cells are aerated. No acute calvarial abnormality is identified. Impression: 1. No acute intracranial abnormality is identified. 2. There is again extra-axial focus of density in the right frontal region abutting the falx, most likely consideration a meningioma, stable compared with May 2018 exam. 3. There is generalized supratentorial atrophy. 4. There is again near complete opacification of the right maxillary sinus. Electronically signed by: Tutu Gallego MD (01/28/2019 2:53 PM) [facility] Course & Med Decision Making Course & Med Decision Making Pertinent Labs and Imaging studies reviewed. (See chart for details) Moved to room upon arrival was evaluated by your medical staff after which an IV was established and blood work was obtained. Patient went down for imaging of head, sacrum and left forearm. Initial EKG had revealed a normal sinus rhythm. Family had indicated concern regarding patient's alcohol use and blood alcohol was also obtained. I did discuss whether patient had been drinking any alcohol today and patient denied alcohol use. He did appear to get agitated when discussing alcohol. Blood alcohol was quite elevated; however, patient alert and oriented 3. During reevaluation of patient, patient was noted to be in atrial fibrillation and I did discuss with patient admission for management of the atrial fibrillation as well as management of pain associated with the sacral fracture. Patient adamantly refusing to be admitted despite numerous attempts at encouragement from both provider, nurse as well as family. Patient continues to state that he desires to be discharged home. We were able to convince patient to allow us to give him a banana bag prior to discharge. Ultimately patient left the department AGAINST MEDICAL ADVICE. Dragon Disclaimer Dragon Disclaimer This electronic medical record was generated, in whole or in part, using a voice recognition dictation system. Departure Departure Impression: Primary Impression: Closed head injury Additional Impressions: Sacral fracture, closed Fall from standing Alcohol intoxication Disposition: AGAINST MEDICAL ADVICE Condition: IMPROVED Referrals: Jose HASSAN MD (PCP) Problem Qualifiers Primary Impression: Closed head injury Encounter type: initial encounter Qualified Codes: S09.90XA - Unspecified injury of head, initial encounter Additional Impressions: Sacral fracture, closed Encounter type: initial encounter Zone of sacrum fracture: unspecified portion of sacrum Qualified Codes: S32.10XA - Unspecified fracture of sacrum, initial encounter for closed fracture Fall from standing Encounter type: initial encounter Qualified Codes: W19.XXXA - Unspecified fall, initial encounter Alcohol intoxication Complication of substance-induced condition: uncomplicated Qualified Codes: F10.920 - Alcohol use, unspecified with intoxication, uncomplicated DAMIR REYES Jr. DO Jan 28, 2019 16:11
[2019-01-28 17:52] VITALS: BP 133/65
--- NOTE | 2019-01-29 06:45 | EKG ---
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
== END 2019-01-28 18:00 | disposition left against medical advice (07) ==
LOC: ER 13:28
DX: S32.10XA Unspecified fracture of sacrum, initial encounter for closed fracture (principal); S40.812A Abrasion of left upper arm, initial encounter; S40.811A Abrasion of right upper arm, initial encounter; S09.8XXA Other specified injuries of head, initial encounter; M53.3 Sacrococcygeal disorders, not elsewhere classified; F10.920 Alcohol use, unspecified with intoxication, uncomplicated; Y90.8 Blood alcohol level of 240 mg/100 ml or more; I48.91 Unspecified atrial fibrillation; J44.9 Chronic obstructive pulmonary disease, unspecified; E11.9 Type 2 diabetes mellitus without complications; E78.00 Pure hypercholesterolemia, unspecified; I10 Essential (primary) hypertension; Z90.49 Acquired absence of other specified parts of digestive tract; Z91.041 Radiographic dye allergy status; W18.39XA Other fall on same level, initial encounter; Y93.89 Activity, other specified; Y92.89 Other specified places as the place of occurrence of the external cause; Y99.8 Other external cause status
CPT/HCPCS: 36415; 70450; 72170; 72220; 73090; 80053; 85025; 90471; 90715; 93005; 96365; 96366; 99285; G0480; J7030

== ENCOUNTER 2019-05-28 12:10 | Emergency (ER) | payer MEDICARE, OTHER ==
[~2019-05-28] VITALS: Ht 182.9 cm; Wt 104.5 kg
[~2019-05-28 12:10] MED LIST changes: -OMEP20CA10 PO; +OMEP20CA16 PO; -TELM40TA4 PO; +TELM40TA7 PO
--- NOTE | 2019-05-28 13:49 | PHYS DOC ---
Past Medical History Past Medical History: A-Fib, COPD, Diabetes-Type II, High Cholesterol, Hy pertension Additional Past Medical Histor: CARDIAC [id number] Past Surgical History: Cholecystectomy, Other Additional Past Surgical Histo: BILAT BIG TOES, CATARACT, BACK SURG Smoking Status: Former Smoker Alcohol Use: Heavy Drug Use: Opiates Adult General Chief Complaint Chief Complaint: MECHANICAL FALL HPI HPI Patient is a 79 year old male with history of hypertension, dyslipidemia, diabetes mellitus, COPD, atrial information without taking anticoagulation who presents with complaint of fall. Patient states he lost his balance 5 days ago and fell inside of home on carpeted area and landed on left hip without loss of consciousness. Patient states he had painful left hip and tailbone and seen by his chiropractor today that did some adjustment and recommended this coming to ER for evaluation of possible dislocation of left hip. She also stated that he had 1 episode of urinary and bowel incontinence 6 days ago before his fall that resolved spontaneously. Patient denies focal neuro deficit, chest pain, shortness of breath. Review of Systems Review of Systems Constitutional: Denies fever or chills [] Eyes: Denies change in visual acuity, redness, or eye pain [] HENT: Denies nasal congestion or sore throat [] Respiratory: Denies cough or shortness of breath [] Cardiovascular: No additional information not addressed in HPI [] GI: Denies abdominal pain, nausea, vomiting, bloody stools or diarrhea [] : Denies dysuria or hematuria [] Musculoskeletal: Denies back pain, reports joint pain [] Integument: Denies rash or skin lesions [] Neurologic: Denies headache, focal weakness or sensory changes [] Endocrine: Denies polyuria or polydipsia [] All other systems were reviewed and found to be within normal limits, except as documented in this note. Allergies Allergies Allergies Coded Allergies Type Severity Reaction Last Updated Verified Gyojwut-Kwo-Ity Reductase Inhibitor Allergy Intermediate 10/21/18 Yes Physical Exam Physical Exam Constitutional: Well developed, well nourished, mild distress, non-toxic appearance. [] HENT: Normocephalic, atraumatic. Eyes: PERRLA, EOMI, conjunctiva normal, no discharge. [] Neck: Normal range of motion, no tenderness, supple, no stridor. [] Cardiovascular:Heart rate regular rhythm, no murmur [] Lungs & Thorax: Bilateral breath sounds clear to auscultation [] Abdomen: Bowel sounds normal, soft, no tenderness, no masses, no pulsatile masses. [] Skin: Warm, dry, no erythema, no rash. [] Back: No tenderness, no CVA tenderness. [] Extremities: No hip tenderness, no cyanosis, no clubbing, ROM intact, no edema. [] Neurologic: Alert and oriented X 3, no focal deficits noted. [] Psychologic: Affect normal, judgement normal, mood normal. [] Current Patient Data Vital Signs Vital Signs Date Time Temp Pulse Resp B/P (MAP) Pulse Ox O2 Delivery O2 Flow Rate FiO2 05/28/19 15:00 78 15 94 05/28/19 12:40 98.1 168/74 (105) Room Air 98.1 EKG EKG [] Radiology/Procedures Radiology/Procedures [facility] [address] [place] [address] IMAGING REPORT Signed PATIENT: JASMYNE GALLEGOS ACCOUNT: [id number] : 1940 LOCATION: ER AGE: 79 SEX: M EXAM STATUS: REG ER ORD. PHYSICIAN: MICHELE ROSALES MD REASON: fall, tailbone and left hip pain PROCEDURE: CT PELVIS WO CONTRAST Examination: CT pelvis without contrast HISTORY: History of fall, tailbone pain, left hip pain COMPARISON: None available TECHNIQUE: Axial CT images of the pelvis were performed without contrast. Coronal and sagittal reformats performed. Exposure: One or more of the following individualized dose reduction techniques were utilized for this examination: 1. Automated exposure control 2. Adjustment of the mA and/or kV according to patient size 3. Use of iterative reconstruction technique FINDINGS: Mild thickened appearance of the wall of the rectum with surrounding inflammatory fat stranding. The prostate is mildly enlarged. The urinary bladder is mildly distended. Septated cystic structure identified in the left kidney measuring 8.5 cm. Multiple sigmoid colon diverticulosis identified. The bilateral femoral heads are within the acetabula. Moderate joint space loss identified in the bilateral hip joint likely degenerative changes. There is no acute fracture or dislocation identified. Moderate degenerative changes identified in the sacrum. Fat-containing bilateral inguinal hernias, left greater than right. Mild soft tissue fat stranding identified lateral to the bilateral hips. Mild asymmetric thickening of the right anterolateral wall of the urinary bladder. IMPRESSION: 1. No acute osseous findings. 2. Septated cystic structure identified in the left kidney could be cyst or cystic lesion. Follow-up ultrasound kidneys can be considered. 3. Mild asymmetric thickening of the anterolateral right wall of the urinary bladder, nonspecific underlying mucosal pathology is not excluded. Consider follow-up cystoscopy. 4. Mild thickened appearance of the wall of the rectum with surrounding fat stranding could be mild proctitis. Electronically signed by: Marcos Coon MD (05/28/2019 2:29 PM) [id number] DICTATED and SIGNED BY: MARCOS COON MD DATE: 05/28/19 1429 Course & Med Decision Making Course & Med Decision Making Pertinent Imaging studies reviewed. (See chart for details) Social patient in ER showed 79-year-old male patient with a fall 5 days ago and complaining of left hip and tailbone pain. Patient had unremarkable physical exam and CT of pelvis for acute problem and was advised to follow up with his primary care physician. Dragon Disclaimer Dragon Disclaimer This electronic medical record was generated, in whole or in part, using a voice recognition dictation system. Departure Departure Impression: Primary Impression: Injury of left hip Additional Impression: Fall at home Disposition: 01 HOME, SELF-CARE (at 1505) Condition: STABLE Referrals: Jose HASSAN MD (PCP) Patient Instructions: Fall Prevention and Home Safety, Hip Injury Additional Instructions: Continue home pain medication Follow-up with your primary care physician in 3-5 days Return to ER if not getting better Problem Qualifiers Primary Impression: Injury of left hip Encounter type: initial encounter Qualified Codes: S79.912A - Unspecified injury of left hip, initial encounter Additional Impression: Fall at home Encounter type: subsequent encounter Qualified Codes: W19.XXXD - Unspecified fall, subsequent encounter; Y92.009 - Unspecified place in unspecified non-institutional (private) residence as the place of occurrence of the external cause MICHELE ROSALES MD May 28, 2019 13:49
--- NOTE | 2019-05-28 14:32 | RAD ---
Examination: CT pelvis without contrast HISTORY: History of fall, tailbone pain, left hip pain COMPARISON: None available TECHNIQUE: Axial CT images of the pelvis were performed without contrast. Coronal and sagittal reformats performed. Exposure: One or more of the following individualized dose reduction techniques were utilized for this examination: 1. Automated exposure control 2. Adjustment of the mA and/or kV according to patient size 3. Use of iterative reconstruction technique FINDINGS: Mild thickened appearance of the wall of the rectum with surrounding inflammatory fat stranding. The prostate is mildly enlarged. The urinary bladder is mildly distended. Septated cystic structure identified in the left kidney measuring 8.5 cm. Multiple sigmoid colon diverticulosis identified. The bilateral femoral heads are within the acetabula. Moderate joint space loss identified in the bilateral hip joint likely degenerative changes. There is no acute fracture or dislocation identified. Moderate degenerative changes identified in the sacrum. Fat-containing bilateral inguinal hernias, left greater than right. Mild soft tissue fat stranding identified lateral to the bilateral hips. Mild asymmetric thickening of the right anterolateral wall of the urinary bladder. IMPRESSION: 1. No acute osseous findings. 2. Septated cystic structure identified in the left kidney could be cyst or cystic lesion. Follow-up ultrasound kidneys can be considered. 3. Mild asymmetric thickening of the anterolateral right wall of the urinary bladder, nonspecific underlying mucosal pathology is not excluded. Consider follow-up cystoscopy. 4. Mild thickened appearance of the wall of the rectum with surrounding fat stranding could be mild proctitis. Electronically signed by: Marcos Coon MD (05/28/2019 2:29 PM) [id number]
[2019-05-28 15:00] VITALS: BP 157/67
== END 2019-05-28 15:10 | disposition home or self-care (01) ==
LOC: ER 12:10
DX: S79.812A Other specified injuries of left hip, initial encounter (principal); I48.20 Chronic atrial fibrillation, unspecified; E11.9 Type 2 diabetes mellitus without complications; E78.00 Pure hypercholesterolemia, unspecified; J44.9 Chronic obstructive pulmonary disease, unspecified; F15.90 Other stimulant use, unspecified, uncomplicated; F10.10 Alcohol abuse, uncomplicated; Z87.891 Personal history of nicotine dependence; Z90.49 Acquired absence of other specified parts of digestive tract; Z98.890 Other specified postprocedural states; Z88.8 Allergy status to other drugs, medicaments and biological substances; W18.30XA Fall on same level, unspecified, initial encounter; Y93.89 Activity, other specified; Y92.099 Unspecified place in other non-institutional residence as the place of occurrence of the external cause; Y99.8 Other external cause status
CPT/HCPCS: 72192; 99284; 99285

== ENCOUNTER → 2019-09-04 | Outpatient (CLI) | payer MEDICARE, OTHER ==
--- NOTE | 2019-09-04 15:23 | RAD ---
Retroperitoneal ultrasound. INDICATION: Cyst left kidney seen on recent CT. COMPARISON: CT pelvis without IV contrast 05/28/2019. TECHNIQUE: Grayscale and color Doppler imaging of the retroperitoneum focused on the kidneys and urinary bladder. FINDINGS: The right kidney measures 12.0 x 5.2 x 6.2 cm and contains a simple cyst in the inferior lateral aspect of the kidney measuring 2.4 x 2.5 x 2.0 cm. The left kidney measures 14.8 x 5.0 x 5.4 cm and contains multiple inferior pole cysts, the largest measures 8.3 cm in length. Adjacent to this dominant cyst superolaterally is a 3.3 x 3.1 x 2.6 cm. An additional inferomedial left simple renal cyst measuring 1.8 x 1.7 x 1.5 cm is noted. No solid renal masses are identified on either side. No hydronephrosis or shadowing stones. No perirenal fluid. The urinary bladder is unremarkable. IMPRESSION: Bilateral simple renal cysts. No solid renal masses identified. Electronically signed by: Tex Carter MD (09/04/2019 3:20 PM) [id number]
== END | disposition home or self-care (01) ==
LOC: US 13:41
PROVIDERS: ATTEND Family Medicine
DX: N28.1 Cyst of kidney, acquired (principal)
CPT/HCPCS: 76770

== ENCOUNTER → 2019-11-27 | Outpatient (CLI) | payer MEDICARE, OTHER ==
[~2019-11-27] MED LIST changes: -CAPS42.513 TP; +CAPS42.514 TP; +GADOTERATE 5 MMOL/10ML VIAL. IVP ONE
--- NOTE | 2019-11-27 09:58 | KCIC ---
EXAM: Lumbar spine MRI without contrast. HISTORY: Lumbar stenosis. Claudication. TECHNIQUE: Multiplanar, multisequence magnetic resonance imaging of the lumbar spine was performed without contrast. COMPARISON: 07/08/2018 FINDINGS: There has been no change in a mild chronic compression fracture with vertebroplasty changes and associated heterogeneous marrow signal at L2. There is no retropulsion of the cortex at this level. No acute or subacute fracture is seen. There is mild lumbar scoliosis. There is minimal grade 1 anterolisthesis of L1 on L2, measuring 1 mm. There is minimal grade 1 anterolisthesis of L3 on L4, measuring 2 mm. There is severe degenerative endplate remodeling with disc space narrowing and osteophytosis primarily at the mid lower lumbar levels. There are multiple endplate Schmorl's nodes. There is degenerative endplate edema on the right at L3-L4. There are few osseous hemangiomas. There is a small round T2 hyperintense and T1 hypointense lesion with increased signal on inversion recovery images within the posterior inferior aspect of L3. This is new compared to the prior study and also likely due to endplate Schmorl's node formation. The conus terminates at T12-L1. There are multiple simple cyst stenosis within the lower pole the left greater than right kidneys, within the lower pole the left kidney, partially included on the [id number]. Follow-up is not routinely recommended for simple renal cysts. At L1-L2, there is a disc bulge and endplate osteophytosis. There is mild bilateral foraminal stenosis. At L2-L3, there is a left foraminal to extra foraminal disc protrusion and osteophyte complex with annular tear superimposed on a disc bulge and endplate remodeling. There is mild bilateral facet arthropathy. There is hypertrophy of the ligamentum flavum. There is mild right and moderate left foraminal stenosis. There is moderate central canal stenosis. At L3-L4, there is a shallow broad-based right lateral recess to extra foraminal disc protrusion and annular tear superimposed on a disc bulge and endplate remodeling. There is severe bilateral facet arthropathy. There are partial laminectomy changes. There is moderate right and mild left foraminal stenosis. There is moderate central canal stenosis. At L4-L5, there is a broad-based right paracentral to extra foraminal disc protrusion and annular tear with slight superior and inferior extrusion superimposed on a disc bulge and endplate remodeling. There is moderate right greater than left facet arthropathy. There are partial laminectomy changes. There is mild to moderate right and mild left foraminal stenosis. There is mild central canal stenosis. At L5-S1, there is a left foraminal to extra foraminal disc protrusion and osteophyte complex superimposed on a left lateral predominant disc bulge and endplate osteophytosis. There is moderate right and mild left facet arthropathy. There is mild right and severe left foraminal stenosis. IMPRESSION: 1. Multilevel degenerative change throughout the lumbar spine, described in detail above. This is associated with mild bilateral foraminal stenosis at L1-L2, mild right and moderate left foraminal and moderate central canal stenosis at L2-L3, moderate right and mild left foraminal and moderate central canal stenosis at L3-L4, mild to moderate right and mild left foraminal and mild central canal stenosis at L4-L5 and mild right and severe left foraminal stenosis at L5-S1. These changes are stable to minimally increased compared to the prior study, allowing for differences in imaging technique. 2. Stable mild chronic compression fracture with vertebroplasty changes at L4. 3. Suspected new Schmorl's node along the posterior inferior endplate of L3, with associated increased signal on inversion recovery images and decreased signal on T1-weighted images. There is also endplate edema along the right aspect of the disc space at L3-L4 which is degenerative and increased compared to the prior exam.No suspicious osseous lesion is seen. 4. Suspected partial laminectomy changes at L3-L4 and L4-L5. Electronically signed by: Liz Olivier MD (11/27/2019 9:56 AM) [facility]
== END | disposition home or self-care (01) ==
LOC: KCIC MRI 08:29
PROVIDERS: ATTEND Family Medicine
DX: S32.040A Wedge compression fracture of fourth lumbar vertebra, initial encounter for closed fracture (principal); M48.07 Spinal stenosis, lumbosacral region; M47.816 Spondylosis without myelopathy or radiculopathy, lumbar region; X58.XXXA Exposure to other specified factors, initial encounter; Y93.89 Activity, other specified; Y92.89 Other specified places as the place of occurrence of the external cause; Y99.8 Other external cause status
CPT/HCPCS: 72158; A9575

== ENCOUNTER → 2019-12-23 | Outpatient (CLI) | payer MEDICARE, OTHER ==
[~2019-12-23] MED LIST changes: -GADOTERATE 5 MMOL/10ML VIAL. IVP ONE
--- NOTE | 2019-12-23 12:42 | PDOC ---
Progress Note - Pain Clinic Date of Service: DOS: DATE: 12/23/19 TIME: 12:38 Diagnosis: Dx: Lumbar radiculopathy with lumbar degenerative disc disease lumbar spinal stenosis and lumbar postlaminectomy syndrome History or Present Illness: HPI: 79-year-old male returns follow-up status post lumbar epidural straight injections x3 last seen March 2018. Patient reports about 60 to 75% improvement overall pain is returning now over the past few months patient reports he did very well for several months and then the pain is now returning in the low back bilateral lower extremities mostly the posterior gluteus and posterior thigh at this time her last year was more in the anterior aspect is now much more posterior right essentially equal to left left side sometimes worse. Patient reports it is an 8 on a scale of 10 is worse over the past week 8 on average 7 its least and is a 7 today. Patient describes aching sharp dull tight shooting sometimes constant worse with walking standing changing positions better with sitting or laying down awakens him from sleep only occasionally but not every night. Patient reports no new motor or sensory deficits no new bowel or bladder con's or other complaints. Patient have a new MRI scan lumbar spine dated November 27, 2019 showing at L4-5 broad-based right paracentral to extraforaminal disc protrusion with moderate right greater than left facet arthropathy mild to moderate right and mild left foraminal stenosis L5-S1 shows moderate right and mild left facet arthropathy with mild right and severe left foraminal stenosis. Patient reports no loss of motor function no bowel or bladder incontinence Physical Exam: VS: Blood pressure is 146/71 pulse 74 respirations 18 temperature 98.3 F height is 6 foot weight is 202 pounds PE: PHYSICAL EXAMINATION: GENERAL: The patient is awake, alert, oriented, appropriate, very pleasant demeanor HEENT: Shows normocephalic, atraumatic. Extraocular movements are intact and symmetrical. Oral cavity: Mucous membranes moist and pink. Dentition is intact. NECK: Shows anterior throat supple without palpable lymphadenopathy noted. Swallow reflex symmetrical. CHEST: Shows normal on inspection. Breath sounds are clear bilaterally, no rales rhonchi or wheezes auscultated. HEART: Shows S1, S2 clear. No murmurs auscultated. ABDOMEN: Soft, nontender, nondistended, obese. No palpable organomegaly is noted. No rebound or guarding demonstrated. BACK: Shows spine grossly in the midline. Normal-appearing cervical lordotic curvature. There is slightly increased thoracic kyphosis, some minor flattening of the lumbar lordotic curvature. Lumbar paraspinous muscles show symmetrical on inspection, on palpation shows some moderate tenderness diffusely throughout the upper, middle and lower distribution of the paraspinous muscles, but without specific trigger points, without radiation of pain. The patient has good rotational motion of the lumbar spine, both laterally as well as extension and flexion without significant difficulty. No tenderness over the spinous processes, sacrum or sacroiliac regions. EXTREMITIES: Lower extremities show deep tendon reflexes 1+ in the patellar and tendo calcaneus tendons. Motor exam is 4 on a scale of 5 with right dorsiflexion, extension, quadriceps and hamstring flexion and 4/5 on the left. Peripheral pulses are 1+ posterior tibial. No peripheral edema is noted bilate rally. Lower extremities are warm and dry to touch, equal in color and appearance. Straight leg raise noted to be negative bilaterally. Gaenslen's and Jose's maneuvers are negative as well. The patient is able to stand, stand on his toes is slow getting up uses his cane and arm chair arms to rise from a seated position, walks with a widened stance gait does appear to favor t he left lower extremity more than the right with ambulation. SKIN: Shows warm and dry, good turgor. No edema. No sores, rashes or bruising throughout. Procedure: Procedure: Options were discussed with the patient. Patient's old chart was reviewed his his current medication regimen updated current review of systems updated today as well. We will try a Medrol Dosepak first to see if this may afford some change in improvement for the patient's back and lower extremity pain. If not sniffily improved we did discuss potential interventional techniques once again as he did do well with these last year- lumbar epidural steroid injection. Patient will try the Medrol Dosepak first and follow-up after this is completed. Patient given instruction as well as side effects beware with the medication will follow-up as scheduled Medication Injected: Med Injected: None Condition at Discharge: Condition at Discharge: Condition at discharge is stable CARIE JUNE MD Dec 23, 2019 12:42
== END | disposition home or self-care (01) ==
LOC: PNCL 11:29
PROVIDERS: ATTEND Anesthesiology
DX: M51.16 Intervertebral disc disorders with radiculopathy, lumbar region (principal); M48.061 Spinal stenosis, lumbar region without neurogenic claudication; I10 Essential (primary) hypertension; E11.9 Type 2 diabetes mellitus without complications; J44.9 Chronic obstructive pulmonary disease, unspecified; M96.1 Postlaminectomy syndrome, not elsewhere classified; Z88.8 Allergy status to other drugs, medicaments and biological substances; Z87.891 Personal history of nicotine dependence; Z79.84 Long term (current) use of oral hypoglycemic drugs; Z79.899 Other long term (current) drug therapy
CPT/HCPCS: G0463

== ENCOUNTER → 2020-02-25 | Outpatient (CLI) | payer MEDICARE, OTHER ==
[~2020-02-25] MED LIST changes: -HYDR-2165 PO; +HYDR-3070 PO; +IOHEXOL 180 MG/ML 10 ML VIAL. ONE; +KETO-13 OP; -KETO5DRO9 OP; +methylPREDNISolone ACETATE 40 MG/ML VIAL. ONE; +methylPREDNISolone ACETATE 80 MG/ML VIAL. ONE
--- NOTE | 2020-02-25 10:54 | PDOC ---
Progress Note - Pain Clinic Date of Service: DOS: DATE: 02/25/20 TIME: 10:51 Diagnosis: Dx: Lumbar radiculopathy with lumbar degenerative disease lumbar spinal stenosis and post lumbar laminectomy syndrome History or Present Illness: HPI: 79-year-old male returns follow-up status post initial evaluation and trial of Medrol Dosepak for preauthorization. Patient reports the Medrol Dosepak was only helpful for 2 pain still significant in the low back and left lower extremity. Patient reports is radiating the posterior gluteus posterior thigh posterior calf on the left side with tingling cramping aching dull and constant at times. Patient rates as a 9 on scale 10 is worse over the past week 8 on average 8 its least patient reports no new motor or sensory deficits no new bow el or bladder incontinence or other complaints. Physical Exam: VS: Blood pressure is 118/66 pulse 78 respirations 16 temperature 99.1 F height 6 feet weight 236 pounds PE: PHYSICAL EXAMINATION: GENERAL: The patient is awake, alert, oriented, appropriate, very pleasant demeanor HEENT: Shows normocephalic, atraumatic. Extraocular movements are intact and symmetrical. NECK: Shows anterior throat supple without palpable lymphadenopathy noted. Swallow reflex symmetrical. CHEST: Shows normal on inspection. Breath sounds are clear bilaterally. HEART: Shows S1, S2 clear. No murmurs auscultated. ABDOMEN: Soft, nontender, nondistended, obese. No palpable organomegaly is noted. No rebound or guarding demonstrated. BACK: Shows spine grossly in the midline. Normal-appearing cervical lordotic curvature. There is slightly increased thoracic kyphosis, some minor flattening of the lumbar lordotic curvature. Lumbar paraspinous muscles show symmetrical on inspection, on palpation shows some moderate tenderness diffusely throughout the upper, middle and lower distribution of the paraspinous muscles without specific trigger points, without radiation of pain. The patient has good rotational motion of the lumbar spine, both laterally as well as extension and flexion without significant difficulty. No tenderness over the spinous processes, sacrum or sacroiliac regions. EXTREMITIES: Lower extremities show deep tendon reflexes 1 in the patellar and tendo calcaneus tendons. Motor exam is 4 on a scale of 5 with right dorsiflexion, extension, quadriceps and hamstring flexion and 4/5 on the left. Peripheral pulses are 1+ posterior tibial. No peripheral edema is noted bilaterally. Lower extremities are warm and dry to touch, equal in color and appearance. SKIN: Shows warm and dry, good turgor. No edema. No sores, rashes or bruising throughout. Procedure: Procedure: Options were discussed with the patient. Patient chart reviewed his his current medication regimen updated current review of systems updated today as well. We will proceed with a lumbar epidural steroid injection today with fluoroscopic guidance. Risks were discussed including but not limited to: Bleeding, infection, possibility of epidural hematoma and subsequent neurological compromise, dural puncture, headaches, spinal cord and/or nerve damage, side effects of steroid medication, and poor results regarding pain control. Patient understands wished to proceed. Patient will return to clinic in approximate 2 weeks for follow-up was counseled as to return appointment activity level and side effects to be aware of. Medication Injected: Med Injected: Procedure is lumbar epidural steroid injection: under local anesthetic using sterile prep and drape at the L5-S1 level using C-arm fluoroscopic guidance in both AP and lateral views medications injected is 120 mg Depo-Medrol + 10 mL preservative-free normal saline and 2 mL contrast- condition at discharge is stable patient tolerated procedure well had no complications. Condition at Discharge: Condition at Discharge: Condition at discharge is stable, patient tolerated the procedure well and had no complications. CARIE JUNE MD Feb 25, 2020 10:54
== END | disposition home or self-care (01) ==
LOC: PNCL 09:33
PROVIDERS: ATTEND Anesthesiology
DX: M51.16 Intervertebral disc disorders with radiculopathy, lumbar region (principal); M48.061 Spinal stenosis, lumbar region without neurogenic claudication; M96.1 Postlaminectomy syndrome, not elsewhere classified; I11.0 Hypertensive heart disease with heart failure; I50.9 Heart failure, unspecified; I25.10 Atherosclerotic heart disease of native coronary artery without angina pectoris; K21.9 Gastro-esophageal reflux disease without esophagitis; G47.30 Sleep apnea, unspecified; E11.42 Type 2 diabetes mellitus with diabetic polyneuropathy; I48.91 Unspecified atrial fibrillation; M19.90 Unspecified osteoarthritis, unspecified site; N40.0 Benign prostatic hyperplasia without lower urinary tract symptoms; E11.9 Type 2 diabetes mellitus without complications; M10.9 Gout, unspecified; Z90.49 Acquired absence of other specified parts of digestive tract; Z98.890 Other specified postprocedural states; Z79.899 Other long term (current) drug therapy; Z82.49 Family history of ischemic heart disease and other diseases of the circulatory system; Z87.891 Personal history of nicotine dependence; Z85.46 Personal history of malignant neoplasm of prostate; Z72.89 Other problems related to lifestyle
CPT/HCPCS: 62323; J1030; J1040; Q9965

== ENCOUNTER 2020-05-22 21:07 | Inpatient (IN) | payer MEDICARE, OTHER ==
[~2020-05-22] VITALS: Ht 182.9 cm; Wt 105.0 kg
[~2020-05-22 21:07] MED LIST changes: -IOHEXOL 180 MG/ML 10 ML VIAL. ONE; -methylPREDNISolone ACETATE 40 MG/ML VIAL. ONE; -methylPREDNISolone ACETATE 80 MG/ML VIAL. ONE
[2020-05-22] MEDS ORDERED: PRENATAL MULTIVITAMIN TABLET. PO ONE (21:30)
[2020-05-22] MEDS ORDERED: THIAMINE INJ 100 MG in IV DEXTROSE 5% 50 ML IV ONE (21:30)
[2020-05-22] MEDS ORDERED: IV NORMAL SALINE 1000ML BAG 1,000 ML IV ONE (21:30)
[2020-05-22] MEDS ORDERED: NEOMY/BACITR/POLYMYXIN OINT PACKET. TP ONE (21:30)
--- NOTE | 2020-05-22 21:33 | PHYS DOC ---
Past Medical History Past Medical History: A-Fib, COPD, Diabetes-Type II, High Cholesterol, Hy pertension Additional Past Medical Histor: CARDIAC [id number] Past Surgical History: Cholecystectomy, Other Additional Past Surgical Histo: BILAT BIG TOES, CATARACT, BACK SURG Smoking Status: Former Smoker Alcohol Use: Heavy Drug Use: Opiates General Adult EDM: Chief Complaint: MECHANICAL FALL HPI: HPI: Patient is a 80 year old male presents via EMS for mechanical fall that occurred roughly 1 hour ago. Patient is acutely intoxicated during HPI, and HPI is limited secondary to patient's intoxication. He states that he was drinking "a lot" today and does not know how much he drank, how he fell, when his last drink was, or what he drank. Patient reports that he would like to get assistance and rehabilitation for his alcohol use. Patient complains of right elbow pain, right knee pain, chronic back pain. No further complaints. Review of Systems: Review of Systems: Constitutional: Denies fever or chills Eyes: Denies redness or eye pain HENT: Denies nasal congestion or sore throat Respiratory: Denies cough or shortness of breath Cardiovascular: Denies chest pain or palpitations GI: Denies abdominal pain, nausea, or vomiting : Denies dysuria or hematuria Musculoskeletal: Positive for chronic back pain, right elbow pain, left knee pain Integument: Denies rash or skin lesions Neurologic: Denies focal weakness or sensory changes Review of systems limited secondary to patient's intoxication Heart Score: Risk Factors: Risk Factors: DM, Current or recent (<one month) smoker, HTN, HLP, family history of CAD, obesity. Risk Scores: Score 0 - 3: 2.5% MACE over next 6 weeks - Discharge Home Score 4 - 6: 20.3% MACE over next 6 weeks - Admit for Clinical Observation Score 7 - 10: 72.7% MACE over next 6 weeks - Early Invasive Strategies Current Medications: Current Medications Medications (Trade) Dose Ordered Sig/Dejuan Start Time Stop Time Status Last Admin Dose Admin Neomycin/ Polymyxin/ Bacitracin (Triple Antibiotic Ointment) 1 pkt 1X ONCE 05/22/20 21:30 05/22/20 21:31 Multivit/ Folic Acid/Iron (Multivitamin ) 1 tab 1X ONCE 05/22/20 21:30 05/22/20 21:31 Sodium Chloride 1,000 ml @ 1,000 mls/hr 1X ONCE 05/22/20 21:30 05/22/20 22:29 Thiamine HCl 100 mg/Dextrose 51 ml @ 102 mls/hr ONCE ONCE 05/22/20 21:30 05/22/20 21:59 Allergies: Allergies: Allergies Coded Allergies Type Severity Reaction Last Updated Verified E[place]-Nuy-Fnt Reductase Inhibitor Allergy Intermediate 10/21/18 Yes Physical Exam: PE: Constitutional: Well developed, mild acute distress, non-toxic appearance HENT: Normocephalic, atraumatic Eyes: PERRL, EOMI, conjunctiva normal, no discharge Neck: Normal range of motion, no tenderness, supple Lungs & Thorax: No respiratory distress, equal chest rise and fall Abdomen: Soft, no tenderness Skin: Warm, dry, no erythema, right elbow and left knee ecchymoses, abrasion to right elbow and left knee Back: Diffuse tenderness to palpation, no CVA tenderness Extremities: No tenderness, ROM intact, no edema Neurologic: Alert and oriented X 3, normal motor function, normal sensory function, no focal deficits noted Psychologic: Affect normal EKG: EK, normal sinus rhythm 96 BPM, no ST elevation, QRS 100 ms, QT/QTc 338/433[] Radiology/Procedures: Radiology/Procedures: [] Course & Med Decision Making: Course & Med Decision Making Pertinent Labs and Imaging studies reviewed. (See chart for details) [] Dragon Disclaimer: Dragon Disclaimer: This electronic medical record was generated, in whole or in part, using a voice recognition dictation system. Departure Departure Referrals: Jose HASSAN MD (PCP) GLENYS LERNER DO May 22, 2020 21:33
--- NOTE | 2020-05-22 21:43 | RAD ---
3 views of left knee dated 05/22/2020. No comparison available. Clinical data indication: Pain after fall. FINDINGS: 3 views of left knee show normal bony alignment. No displaced fracture. No acute osseous or articular abnormality. Mild tricompartmental hypertrophic changes. No apparent joint effusion or loose body. T here is diffuse vascular calcinosis with mild soft tissue swelling. IMPRESSION: 1. Soft tissue swelling with no apparent underlying acute bony abnormality. 2. Mild tricompartmental DJD. Electronically signed by: Ross Muse MD (05/22/2020 9:41 PM) [facility]
[2020-05-22 22:00] LABS: BASO # 0.1 x10^3/uL (0.0-0.2); BASO % 1 % (0-3); EOS # 0.1 x10^3/uL (0.0-0.7); EOS % 2 % (0-3); LYMPH # 1.6 x10^3/uL (1.0-4.8); LYMPH % 23 % (24-48); MEAN CORPUSCULAR HEMOGLOBIN 31 pg (25-35); MEAN CORPUSCULAR HGB CONC 33 g/dL (31-37); MEAN CORPUSCULAR VOLUME 93 fL (79-100); MONO # 0.6 x10^3/uL (0.0-1.1); MONO % 9 % (0-9); NEUT # 4.6 x10^3/uL (1.8-7.7); NEUT % 65 % (31-73); PLATELET COUNT 119 x10^3/uL (140-400); RED CELL DISTRIBUTION WIDTH 15.6 % (11.5-14.5)
[2020-05-22 22:14] LABS: CALCIUM 8.3 mg/dL (8.5-10.1); CREATININE 0.7 mg/dL (0.7-1.3); GFR 108.2; POTASSIUM 3.7 mmol/L (3.5-5.1)
[2020-05-22 22:17] LABS: ACETAMIN < 2 mcg/ml (10-30); SALIC < 2.8 mg/dL (2.8-20.0)
[2020-05-22 22:20] LABS: ALBUMIN 3.3 g/dL (3.4-5.0); MAGNESIUM 1.5 mg/dL (1.8-2.4); TOTAL BILIRUBIN 0.6 mg/dL (0.2-1.0); TOTAL PROTEIN 6.6 g/dL (6.4-8.2)
--- NOTE | 2020-05-22 23:05 | RAD ---
CT HEAD AND C-SPINE WO dated 05/22/2020 10:04 PM. Comparison: 05/04/2018 Clinical Indication: Reason: pain, fall, ETOH intoxication / Spl. Instructions: / History: , HEAD AN D NECK PAIN Technical factors: Contiguous 5 mm axial images of the head were obtained from the skullbase to the v ertex. No contrast was administered. In addition, 3 mm axial images of the cervical spine were acquir ed with thin cut coronal and sagittal reconstructions. One or more of the following individualized dose reduction techniques were utilized for this examinat ion: 1. Automated exposure control 2. Adjustment of the mA and/or kV according to patient size 3. Use of iterative reconstruction technique Findings head: Ventricles and sulci are moderately prominent for age. No midline shift or mass effect. Mild patchy l ow density in the deep/subcortical periventricular white matter. No hemorrhage or extra-axial collect ion. Posterior fossa and brainstem unremarkable. Mild mucosal thickening of the ethmoid air cells with small air-fluid levels in the bilateral maxilla ry sinus. Mastoid air cells are clear. No acute calvarial abnormality. IMPRESSION HEAD: 1. No evidence of acute intracranial hemorrhage or mass. 2. Mild to moderate chronic small vessel ischemic changes and atrophy. Findings cervical spine: Images were acquired from the skull base to T2. Slight anterolisthesis of C5 on C6. Sagittal alignmen t is otherwise anatomic. Vertebral body heights are maintained. No prevertebral soft tissue swelling. Posterior elements are intact. No evidence of fracture. Mild to moderate endplate hypertrophic changes throughout. Moderate disc space narrowing at C5-C6 an d C6-C7. Multilevel uncovertebral spurring and facet arthropathy. There is resultant mild central skylar nosis at C5-C6 and C6-C7 with mild to moderate multilevel foraminal narrowing. Visualized soft tissue structures are unremarkable. Limited images of lung apices are clear. IMPRESSION CERVICAL SPINE: 1. No evidence of fracture or malalignment. 2. Moderate multilevel spondylosis. Electronically signed by: Ross Muse MD (05/22/2020 11:02 PM) [facility]
[2020-05-22] MEDS ORDERED: DEXTROSE 50% 25 GM / 50ML DISP.SYRIN. IV PRN (23:30)
[2020-05-22] MEDS ORDERED: ONDANSETRON PF 4 MG/2 ML VIAL. IV PRN (23:30)
[2020-05-22] MEDS ORDERED: DIPH,PERTUSS(ACELL),TET VAC/PF 0.5 ML SYRINGE. VAX IM ONE (23:30)
[2020-05-22] MEDS ORDERED: MAGNESIUM SULFATE 2GM 50 ML IV ONE (23:30)
[2020-05-22 23:40] LABS: BILIRUBIN,URINE NEGATIVE (NEG); CLARITY,URINE CLEAR; COLOR,URINE YELLOW; NITRITE,URINE NEGATIVE (NEG); PH,URINE 6.5 (<5.0-8.0); PROTEIN,URINE NEGATIVE (NEG-TRACE)
[2020-05-22 23:45] LABS: BACTERIA,URINE 0 /HPF (0-FEW); RBC,URINE 0 /HPF (0-2); WBC,URINE OCC /HPF (0-4)
[2020-05-22 23:46] LABS: BARBITURATES NEG (NEG); BENZODIAZEPINES NEG (NEG); CANNABINOIDS NEG (NEG); COCAINE NEG (NEG); METHADONE NEG (NEG); OPIATES NEG (NEG); PHENCYCLIDINE NEG (NEG)
[2020-05-22 23:47] LABS: AMPHETAMINE/METHAMPHETAMINE NEG (NEG)
[2020-05-23] VITALS (7 sets, daily range): BP systolic 144–168; BP diastolic 69–104
--- NOTE | 2020-05-23 00:43 | NUR ---
Pt.just arrived from ED w/ ETOH Intoxication and fall @ home. He is A/O and can make needs known.
--- NOTE | 2020-05-23 02:31 | EKG ---
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
--- NOTE | 2020-05-23 07:26 | NUR ---
Paged [facility] team @ [phone] and spoke w/ Becki and she will see him mid-morning.
[2020-05-23] MEDS: INSULIN LISPRO 300 UNITS/3 ML VIAL. SQ SCH ×3 (08:00→17:00)
--- NOTE | 2020-05-23 08:24 | PDOC1 ---
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 Patient was acutely intoxicated in the ER, but looks surprisingly good this AM, enough that I went back and reviewed the labs to make sure I didnt look at that wrong. he tells me he drank a glass of champagne and then 2 seagram and valverde. he fell and could not get up, his daughter called EMS to try to help him up, she was worried he hit his head when he fell. he has abrasions to both forearms. 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 Endocrine: Diabetes Past Surgical History Past Surgical History: Other Family History Family History: Coronary Artery Disease Social History Smoke: No ALCOHOL: heavy Drugs: None Current Problem List Problem List Problems Medical Problems: (1) ETOH abuse Status: Acute Current Medications Current Medications Current Medications Sodium Chloride 1,000 ml @ 1,000 mls/hr 1X ONCE IV Last administered on 05/22/20at 22:34; Start 05/22/20 at 21:30; Stop 05/22/20 at 22:29; Status DC Thiamine HCl 100 mg/Dextrose 51 ml @ 102 mls/hr ONCE ONCE IV Last administered on 05/22/20at 22:35; Start 05/22/20 at 21:30; Stop 05/22/20 at 21:59; Status DC Multivit/ Folic Acid/Iron (Multivitamin ) 1 tab 1X ONCE PO Last administered on 05/22/20at 22:35; Start 05/22/20 at 21:30; Stop 05/22/20 at 21:31; Status DC Neomycin/ Polymyxin/ Bacitracin (Triple Antibiotic Ointment) 1 pkt 1X ONCE TP Last administered on 05/22/20at 22:35; Start 05/22/20 at 21:30; Stop 05/22/20 at 21:31; Status DC Diphtheria/ Tetanus/Acell Pertussis (ADACEL TDap SYRINGE) 0.5 ml ONCE ONCE VAX IM Last administered on 05/22/20at 23:46; Start 05/22/20 at 23:30; Stop 05/22/20 at 23:31; Status DC Magnesium Sulfate 50 ml @ 25 mls/hr 1X ONCE IV Last administered on 05/23/20at 01:19; Start 05/22/20 at 23:30; Stop 05/23/20 at 01:29; Status DC Ondansetron HCl (Zofran) 4 mg PRN Q8HRS PRN IV NAUSEA/VOMITING; Start 05/22/20 at 23:30; Stop 05/23/20 at 23:29 Insulin Human Lispro (HumaLOG) 0-5 UNITS TIDWMEALS SQ ; Start 05/23/20 at 08:00 Dextrose (Dextrose 50%-Water Syringe) 12.5 gm PRN Q15MIN PRN IV SEE COMMENTS; Start 05/22/20 at 23:30 Lorazepam (Ativan Inj) 1 mg PRN Q1HR PRN IV For CIWA 8-14; Start 05/23/20 at 01:15 Lorazepam (Ativan Inj) 2 mg PRN Q1HR PRN IV For CIWA 15 or greater; Start 05/23/20 at 01:15 Active Scripts Active Robaxin-750 (Methocarbamol) 750 Mg Tablet 1 Tab PO TID Hydrocodone-Apap 7.5-325 (Hydrocodone Bit/Acetaminophen) 1 Tab Tablet 1 Tab PO PRN Q4HRS PRN Reported Levetiracetam 500 Mg Tablet 750 Mg PO BID Magnesium (Magnesium Amino Acid Chelate) 27 Mg Tablet 27 Mg PO DAILY Glucosamine & Chondroitin Cap (Gluc 2KCL/Chondr/Mara Hy/Hy Ac) 1 Each Capsule 1 Each PO DAILY Furosemide 40 Mg Tablet 1 Tab PO DAILY Metoprolol Tartrate 50 Mg Tablet 1 Tab PO BID Diltiazem 24HR Cd (Diltiazem Hcl) 120 Mg Cap.er.24h 1 Cap PO DAILY Maximum Daily Multivitamin (Multivit With Calcium,Iron,Min) 1 Each Tablet 1 Each PO K-Tab ER (Potassium Chloride) 20 Meq Tablet.er 10 Meq PO BID Vitamin D (Cholecalciferol (Vitamin D3)) 1,000 Unit Tablet 2,000 Unit PO DAILY Allopurinol 100 Mg Tablet 200 Tab PO DAILY Albuterol Sulfate Hfa Inhaler (Albuterol Sulfate) 8.5 Gm Hfa.aer.ad 2 Puff INH Q4HRS Allergies Allergies: Coded Allergies: Xwepvau-Okr-Nmw Reductase Inhibitor (Verified Allergy, Intermediate, 10/21/18) ROS General: No: Chills, Night Sweats, Fatigue, Malaise, Appetite, Other PSYCHOLOGICAL ROS: No: Anxiety, Behavioral Disorder, Concentration difficultie, Decreased libido, Depression, Disorientation, Hallucinations, Hostility, Irritablity, Memory difficulties, Mood Swings, Obsessive thoughts, Physical ab use, Sexual abuse, Sleep disturbances, Suicidal ideation, Other Eyes: No Blurry vision, No Decreased vision, No Double vision, No Dry eyes, No Excessive tearing, No Eye Pain, No Itchy Eyes, No Loss of vision, No Photophobia, No Scotomata, No Uses contacts, No Uses glasses, No Other HEENT: No: Heacaches, Visual Changes, Hearing change, Nasal congestion, Nasal discharge, Oral lesions, Sinus pain, Sore Throat, Epistaxis, Sneezing, Snoring, Tinnitus, Vertigo, Vocal changes, Other Respiratory: No: Cough, Hemoptysis, Orthopnea, Pleuritic Pain, Shortness of breath, SOB with excertion, Sputum Changes, Stridor, Tachypnea, Wheezing, Other Cardiovascular: No Chest Pain, No Palpitations, No Orthopnea, No Paroxysmal Noc. Dyspnea, No Edema, No Lt Headedness, No Other Gastrointestinal: No Nausea, No Vomiting, No Abdominal Pain, No Diarrhea, No Constipation, No Melena, No Hematochezia, No Other Genitourinary: No Dysuria, No Frequency, No Incontinence, No Hematuria, No Retention, No Discharge, No Urgency, No Pain, No Flank Pain, No Other, No , No , No , No , No , No , No Musculoskeletal: Yes Gait Disturbance, Yes Joint Stiffness (back pain) Neurological: No Behavorial Changes, No Bowel/Bladder ControlChng, No Confusion, No Dizziness, No Gait Disturbance, No Headaches, No Impaired Coord/balance, No Memory Loss, No Numbness/Tingling, No Seizures, No Speech Problems, No Tremors, No Visual Changes, No Weakness, No Other Skin: No Dry Skin, No Eczema, No Hair Changes, No Lumps, No Mole Changes, No Mottling, No Nail Changes, No Pruritus, No Rash, No Skin Lesion Changes, No Other, No Acne Physical Exam General: Alert, Oriented X3, Cooperative, No acute distress HEENT: Atraumatic, PERRLA Lungs: Clear to auscultation Heart: S1S2, RRR Abdomen: Normal bowel sounds Extremities: No clubbing, No edema Skin: No breakdown, No significant lesion, Other (thick skin and callouses on feet. ) Neuro: Normal gait, Normal tone, Sensation intact Psych/Mental Status: Mood NL Vitals Vitals Vital Signs Date Time Temp Pulse Resp B/P (MAP) Pulse Ox O2 Delivery O2 Flow Rate FiO2 05/23/20 07:00 98.1 96 18 161/77 (105) 95 Nasal Cannula 2.0 98.1 Labs Labs Laboratory Tests Test 05/22/20 21:45 05/22/20 21:50 05/22/20 23:25 05/23/20 07:07 White Blood Count 7.0 x10^3/uL (4.0-11.0) Red Blood Count 4.50 x10^6/uL (4.30-5.70) Hemoglobin 14.0 g/dL (13.0-17.5) Hematocrit 42.0 % (39.0-53.0) Mean Corpuscular Volume 93 fL (79-100) Mean Corpuscular Hemoglobin 31 pg (25-35) Mean Corpuscular Hemoglobin Concent 33 g/dL (31-37) Red Cell Distribution Width 15.6 % (11.5-14.5) Platelet Count 119 x10^3/uL (140-400) Neutrophils (%) (Auto) 65 % (31-73) Lymphocytes (%) (Auto) 23 % (24-48) Monocytes (%) (Auto) 9 % (0-9) Eosinophils (%) (Auto) 2 % (0-3) Basophils (%) (Auto) 1 % (0-3) Neutrophils # (Auto) 4.6 x10^3/uL (1.8-7.7) Lymphocytes # (Auto) 1.6 x10^3/uL (1.0-4.8) Monocytes # (Auto) 0.6 x10^3/uL (0.0-1.1) Eosinophils # (Auto) 0.1 x10^3/uL (0.0-0.7) Basophils # (Auto) 0.1 x10^3/uL (0.0-0.2) Prothrombin Time 14.0 SEC (11.7-14.0) Prothromb Time International Ratio 1.1 (0.8-1.1) Activated Partial Thromboplast Time 30 SEC (24-38) Sodium Level 134 mmol/L (136-145) Potassium Level 3.7 mmol/L (3.5-5.1) Chloride Level 94 mmol/L (98-107) Carbon Dioxide Level 30 mmol/L (21-32) Anion Gap 10 (6-14) Blood Urea Nitrogen 5 mg/dL (8-26) Creatinine 0.7 mg/dL (0.7-1.3) Estimated GFR (Cockcroft-Gault) 108.2 BUN/Creatinine Ratio 7 (6-20) Glucose Level 100 mg/dL (70-99) Calcium Level 8.3 mg/dL (8.5-10.1) Magnesium Level 1.5 mg/dL (1.8-2.4) Total Bilirubin 0.6 mg/dL (0.2-1.0) Aspartate Amino Transf (AST/SGOT) 39 U/L (15-37) Alanine Aminotransferase (ALT/SGPT) 28 U/L (16-63) Alkaline Phosphatase 63 U/L (46-116) Creatine Kinase 90 U/L (39-308) Creatine Kinase MB (Mass) 0.5 ng/mL (0.0-3.6) Creatine Kinase MB Relative Index 0.6 % (0-4) Troponin I Quantitative < 0.017 ng/mL (0.000-0.055) Total Protein 6.6 g/dL (6.4-8.2) Albumin 3.3 g/dL (3.4-5.0) Albumin/Globulin Ratio 1.0 (1.0-1.7) Salicylates Level < 2.8 mg/dL (2.8-20.0) Salicylate Last Dose Date Unk Salicylate Last Dose Time Unk Acetaminophen Level < 2 mcg/ml (10-30) Acetaminophen Last Dose Date Unk Acetaminophen Last Dose Time Unk Ethyl Alcohol Level 394 mg/dL (0-10) SARS-CoV-2 Antigen (Rapid) Negative (NEGATIVE) Urine Collection Type Unknown Urine Color Yellow Urine Clarity Clear Urine pH 6.5 (<5.0-8.0) Urine Specific [place] <=1.005 (1.000-1.030) Urine Protein Negative mg/dL (NEG-TRACE) Urine Glucose (UA) Negative mg/dL (NEG) Urine Ketones (Stick) Negative mg/dL (NEG) Urine Blood Negative (NEG) Urine Nitrite Negative (NEG) Urine Bilirubin Negative (NEG) Urine Urobilinogen Dipstick 1.0 mg/dL (0.2 mg/dL) Urine Leukocyte Esterase Negative (NEG) Urine RBC 0 /HPF (0-2) Urine WBC Occ /HPF (0-4) Urine Squamous Epithelial Cells Few /LPF Urine Bacteria 0 /HPF (0-FEW) Urine Opiates Screen Neg (NEG) Urine Methadone Screen Neg (NEG) Urine Barbiturates Neg (NEG) Urine Phencyclidine Screen Neg (NEG) Urine Amphetamine/Methamphetamine Neg (NEG) Urine Benzodiazepines Screen Neg (NEG) Urine Cocaine Screen Neg (NEG) Urine Cannabinoids Screen Neg (NEG) Urine Ethyl Alcohol Pos (NEG) Glucose (Fingerstick) 96 mg/dL (70-99) Laboratory Tests Test 05/22/20 21:45 05/22/20 21:50 05/22/20 23:25 05/23/20 07:07 White Blood Count 7.0 x10^3/uL (4.0-11.0) Red Blood Count 4.50 x10^6/uL (4.30-5.70) Hemoglobin 14.0 g/dL (13.0-17.5) Hematocrit 42.0 % (39.0-53.0) Mean Corpuscular Volume 93 fL (79-100) Mean Corpuscular Hemoglobin 31 pg (25-35) Mean Corpuscular Hemoglobin Concent 33 g/dL (31-37) Red Cell Distribution Width 15.6 % (11.5-14.5) Platelet Count 119 x10^3/uL (140-400) Neutrophils (%) (Auto) 65 % (31-73) Lymphocytes (%) (Auto) 23 % (24-48) Monocytes (%) (Auto) 9 % (0-9) Eosinophils (%) (Auto) 2 % (0-3) Basophils (%) (Auto) 1 % (0-3) Neutrophils # (Auto) 4.6 x10^3/uL (1.8-7.7) Lymphocytes # (Auto) 1.6 x10^3/uL (1.0-4.8) Monocytes # (Auto) 0.6 x10^3/uL (0.0-1.1) Eosinophils # (Auto) 0.1 x10^3/uL (0.0-0.7) Basophils # (Auto) 0.1 x10^3/uL (0.0-0.2) Prothrombin Time 14.0 SEC (11.7-14.0) Prothromb Time International Ratio 1.1 (0.8-1.1) Activated Partial Thromboplast Time 30 SEC (24-38) Sodium Level 134 mmol/L (136-145) Potassium Level 3.7 mmol/L (3.5-5.1) Chloride Level 94 mmol/L (98-107) Carbon Dioxide Level 30 mmol/L (21-32) Anion Gap 10 (6-14) Blood Urea Nitrogen 5 mg/dL (8-26) Creatinine 0.7 mg/dL (0.7-1.3) Estimated GFR (Cockcroft-Gault) 108.2 BUN/Creatinine Ratio 7 (6-20) Glucose Level 100 mg/dL (70-99) Calcium Level 8.3 mg/dL (8.5-10.1) Magnesium Level 1.5 mg/dL (1.8-2.4) Total Bilirubin 0.6 mg/dL (0.2-1.0) Aspartate Amino Transf (AST/SGOT) 39 U/L (15-37) Alanine Aminotransferase (ALT/SGPT) 28 U/L (16-63) Alkaline Phosphatase 63 U/L (46-116) Creatine Kinase 90 U/L (39-308) Creatine Kinase MB (Mass) 0.5 ng/mL (0.0-3.6) Creatine Kinase MB Relative Index 0.6 % (0-4) Troponin I Quantitative < 0.017 ng/mL (0.000-0.055) Total Protein 6.6 g/dL (6.4-8.2) Albumin 3.3 g/dL (3.4-5.0) Albumin/Globulin Ratio 1.0 (1.0-1.7) Salicylates Level < 2.8 mg/dL (2.8-20.0) Salicylate Last Dose Date Unk Salicylate Last Dose Time Unk Acetaminophen Level < 2 mcg/ml (10-30) Acetaminophen Last Dose Date Unk Acetaminophen Last Dose Time Unk Ethyl Alcohol Level 394 mg/dL (0-10) SARS-CoV-2 Antigen (Rapid) Negative (NEGATIVE) Urine Collection Type Unknown Urine Color Yellow Urine Clarity Clear Urine pH 6.5 (<5.0-8.0) Urine Specific [place] <=1.005 (1.000-1.030) Urine Protein Negative mg/dL (NEG-TRACE) Urine Glucose (UA) Negative mg/dL (NEG) Urine Ketones (Stick) Negative mg/dL (NEG) Urine Blood Negative (NEG) Urine Nitrite Negative (NEG) Urine Bilirubin Negative (NEG) Urine Urobilinogen Dipstick 1.0 mg/dL (0.2 mg/dL) Urine Leukocyte Esterase Negative (NEG) Urine RBC 0 /HPF (0-2) Urine WBC Occ /HPF (0-4) Urine Squamous Epithelial Cells Few /LPF Urine Bacteria 0 /HPF (0-FEW) Urine Opiates Screen Neg (NEG) Urine Methadone Screen Neg (NEG) Urine Barbiturates Neg (NEG) Urine Phencyclidine Screen Neg (NEG) Urine Amphetamine/Methamphetamine Neg (NEG) Urine Benzodiazepines Screen Neg (NEG) Urine Cocaine Screen Neg (NEG) Urine Cannabinoids Screen Neg (NEG) Urine Ethyl Alcohol Pos (NEG) Glucose (Fingerstick) 96 mg/dL (70-99) VTE Prophylaxis Ordered VTE Prophylaxis Devices: No VTE Pharmacological Prophylaxi: Yes Assessment/Plan Assessment/Plan fall, weakness, arm injury acute toxic encephalopathy, Acute alcohol intoxication, serum alcohol level 394, he only recalls having 3 drinks yesterday alcohol abuse disorder overweight BMI [address] Rausch, he needs PAT team and f/u Justifications for Admission Other Justification SANDEEP CUTLER MD May 23, 2020 08:24
[2020-05-23] MEDS ORDERED: POTASSIUM CL 20MEQ D5-0.45NACL 1,000 ML IV ONE (08:30)
--- NOTE | 2020-05-23 08:30 | NUR ---
PATIENT ALERT AND VERBALLY RESPONSIVE BUT RESTLESS AT TIME, SIDERAILS PADDED FOR SEIZURE PRECAUTIONS, INQUIRING ABOUT BREAKFAST, INFORMED THAT IT SHOULD ARRIVE SHORTLY, DRESSING ON IV SITE REINFORCED TO LEAKAGE FROM SITE, WILL MONITOR.
[2020-05-23] MEDS ORDERED: HYDROcodone/APAP 7.5/325MG 1 TAB TABLET PO PRN (09:15)
[2020-05-23] MEDS ORDERED: IBUPROFEN 400 MG TABLET. PO ONE (10:00)
[2020-05-23] MEDS: CHOLECALCIFEROL (VITAMIN D3) 1,000 UNIT TABLET PO SCH (10:54)
[2020-05-23] MEDS: METOPROLOL TART IMMED RELEASE 50 MG TABLET. PO SCH ×2 (10:56→21:16)
[2020-05-23] MEDS: levETIRAcetam 250 MG TABLET PO SCH ×2 (10:57→21:18)
[2020-05-23] MEDS: ALLOPURINOL 100 MG TABLET. PO SCH (10:57)
[2020-05-23] MEDS: METHOCARBAMOL 750 MG TABLET PO SCH ×3 (10:57→21:16)
[2020-05-23] MEDS: LIDOCAINE (700MG/PATCH) PATCH. TD SCH (10:59)
[2020-05-23] MEDS ORDERED: PATCH REMOVAL. MC SCH (21:00)
[2020-05-24 03:10] VITALS: BP 132/67
[2020-05-24 07:00] VITALS: BP 139/78
[2020-05-24] MEDS: INSULIN LISPRO 300 UNITS/3 ML VIAL. SQ SCH ×2 (08:00→12:00)
[2020-05-24] MEDS: levETIRAcetam 250 MG TABLET PO SCH (08:40)
[2020-05-24] MEDS: CHOLECALCIFEROL (VITAMIN D3) 1,000 UNIT TABLET PO SCH (08:40)
[2020-05-24] MEDS: METOPROLOL TART IMMED RELEASE 50 MG TABLET. PO SCH (08:40)
[2020-05-24] MEDS: METHOCARBAMOL 750 MG TABLET PO SCH (08:40)
[2020-05-24] MEDS: ALLOPURINOL 100 MG TABLET. PO SCH (08:40)
[2020-05-24] MEDS: LIDOCAINE (700MG/PATCH) PATCH. TD SCH (08:40)
[2020-05-24] MEDS ORDERED: FOLIC ACID 1 MG TABLET. PO SCH (09:00)
[2020-05-24] MEDS ORDERED: THIAMINE 100 MG TABLET. PO SCH (09:00)
--- NOTE | 2020-05-24 09:49 | NUR ---
SW following. Discussed with RN, pt from home with daughter, room air, ada diet. Pt seen by PAT over the weekend, provided with resources for [facility] meetings, [place] [facility] for outpatient services. RN advised no further SW needs, anticipates pt may discharge home today. SW will continue to follow.
[2020-05-24 11:00] VITALS: BP 126/70
[2020-05-24] MEDS ORDERED: diphenhydrAMINE HCL 25 MG CAPSULE PO PRN (11:45)
[2020-05-24] MEDS ORDERED: THIA100T22 PO (11:49)
--- NOTE | 2020-05-24 11:50 | DISCH ---
DISCHARGE INSTRUCTIONS Condition on Discharge Condition on Discharge: Stable Activity After Discharge Activity Instructions for Disc: Activity as tolerated, Progressive ambulation Bathing Instructions: Shower-keep dressing dry, No Tub Bath until see Lifting Instructions after Dis: No heavy lifting, No pulling or pushing, Do not lift >10 pounds Exercise Instruction after Dis: Progress as tolerated Driving Instructions after Dis: No driving for 2 weeks Weight Bearing Status after Di: No restrictions Diet after Discharge Diet after Discharge: Cardiac, Diabetic No Calorie Level Diet Texture: Regular Liquid Texture: Thin Liquid Swallowing Supervision: None needed Wound Incision Care Wound/Incision Care: Ice to area for comfort, Change dressing, May get incision wet Checks after Discharge Checks after discharge: Check blood press - daily, Check blood sugar, ac/hs Contacting the [facility] after DC Call your doctor for: Concerns you may have Follow-Up Follow up with: PCP within 2 weeks of discharge Follow Up With: Referred to Elif [facility] or [facility] Treatment/Equipment after DC Adaptive Equipment Issued: None JESSENIA HER MD May 24, 2020 11:50
--- NOTE | 2020-05-24 13:04 | NUR ---
Discharge Note: JASMYNE GALLEGOS Discharge instructions and discharge home medications reviewed with Patient and a copy given. All questions have been answered and understanding verbalized. The following instructions and handouts were given: discharge instructions, new prescription, education and follow up recommendations. Discontinued lines and drains: Peripheral IV discontinued intact. Patient discharged to Home or Self Care with Family Member via Wheelchair off unit by this RN.
[2020-05-24] MEDS ORDERED: HYDROCORTISONE 1% TOPICAL CREAM 30GM TUBE. TP SCH (14:00)
--- NOTE | 2020-05-24 14:30 | NUR ---
Wound Care Pt discharged prior to arrival of WC team. No assessment done
--- NOTE | 2020-05-25 04:36 | PDOC3 ---
[facility]-Discharge Summary Date of Admission: Date of Admission: May 23, 2020 Date of Discharge: Date of Discharge: May 24, 2020 Discharge Diagnosis: Discharge Diagnosis: fall, weakness, arm injury acute toxic encephalopathy, Acute alcohol intoxication, serum alcohol level 394, he only recalls having 3 drinks yesterday alcohol abuse disorder overweight BMI 31 Hospital Course: Hospital Course: 80 year old male admti after a fall, . Patient was acutely intoxicated in the ER, but looks surprisingly good this AM, enough that I went back and reviewed the labs to make sure I didnt look at that wrong. he tells me he drank a glass of champagne and then 2 seagram and valverde. he fell and could not get up, his daughter called EMS to try to help him up, she was worried he hit his head when he fell. he has abrasions to both forearms. 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 No focal neuro deficits. Rest of hospital course was uneventful. Disposition: Disposition/Orders: D/C to Home Activity: Activity: Resume previous activity Diet: Diet: Regular Medications: Home Meds Active Scripts Thiamine Mononitrate (VITAMIN B-1) 100 Mg Tablet, 100 MG PO DAILY for supplement for 30 Days, #30 TAB Prov:JESSENIA HER MD 05/24/20 Methocarbamol (ROBAXIN-750) 750 Mg Tablet, 1 TAB PO TID for muscle spasms, #60 TAB Prov:ENRIQUE DUARTE MD 10/22/18 Hydrocodone Bit/Acetaminophen (HYDROCODONE-APAP 7.5-325 ) 1 Tab Tablet, 1 TAB PO PRN Q4HRS PRN for PAIN, #60 TAB Prov:ENRIQUE DUARTE MD 10/22/18 Reported Medications Levetiracetam (LEVETIRACETAM) 500 Mg Tablet, 750 MG PO BID for seizures, TAB 08/27/18 Magnesium Amino Acid Chelate (MAGNESIUM) 27 Mg Tablet, 27 MG PO DAILY 03/13/14 Gluc 2KCL/Chondr/Mara Hy/Hy Ac (GLUCOSAMINE & CHONDROITIN CAP) 1 Each Capsule, 1 EACH PO DAILY 03/13/14 Metoprolol Tartrate (METOPROLOL TARTRATE) 50 Mg Tablet, 1 TAB PO BID, #60 TAB 5 Refills 03/09/14 Diltiazem Hcl (DILTIAZEM 24HR CD) 120 Mg Cap.er.24h, 1 CAP PO DAILY, #90 CAP 1 Refill 02/06/14 Multivit With Calcium,Iron,Min (MAXIMUM DAILY MULTIVITAMIN) 1 Each Tablet, 1 EACH PO 02/06/14 Potassium Chloride (K-Tab ER) 20 Meq Tablet.er, 10 MEQ PO BID, TAB.SR 02/06/14 Cholecalciferol (Vitamin D3) (VITAMIN D) 1,000 Unit Tablet, 2000 UNIT PO DAILY 02/06/14 Allopurinol (ALLOPURINOL) 100 Mg Tablet, 200 TAB PO DAILY, #30 TAB 5 Refills 02/06/14 Albuterol Sulfate (ALBUTEROL SULFATE HFA INHALER) 8.5 Gm Hfa.aer.ad, 2 PUFF INH Q4HRS for FOR ASTHMA, INHALER 0 Refills 02/06/14 Discontinued Reported Medications Furosemide (FUROSEMIDE) 40 Mg Tablet, 1 TAB PO DAILY, #30 TAB 5 Refills 03/09/14 Scheduled Albuterol Sulfate (Albuterol Sulfate Hfa Inhaler), 2 PUFF INH Q4HRS, (Reported) Allopurinol (Allopurinol), 200 TAB PO DAILY, (Reported) Cholecalciferol (Vitamin D3) (Vitamin D), 2,000 UNIT PO DAILY, (Reported) Diltiazem Hcl (Diltiazem 24HR Cd), 1 CAP PO DAILY, (Reported) Gluc 2KCL/Chondr/Mara Hy/Hy Ac (Glucosamine & Chondroitin Cap), 1 EACH PO DAILY, (Reported) Levetiracetam (Levetiracetam), 750 MG PO BID, (Reported) Magnesium Amino Acid Chelate (Magnesium), 27 MG PO DAILY, (Reported) Methocarbamol (Robaxin-750), 1 TAB PO TID Metoprolol Tartrate (Metoprolol Tartrate), 1 TAB PO BID, (Reported) Potassium Chloride (K-Tab ER), 10 MEQ PO BID, (Reported) Thiamine Mononitrate (Vitamin B-1), 100 MG PO DAILY Scheduled PRN Hydrocodone Bit/Acetaminophen (Hydrocodone-Apap 7.5-325 ), 1 TAB PO PRN Q4HRS PRN for PAIN Miscellaneous Medications Multivit With Calcium,Iron,Min (Maximum Daily Multivitamin), 1 EACH PO, (Reported) Discontinued Medications Furosemide (Furosemide), 1 TAB PO DAILY, (Reported) Total Time: Total Time: Total time spent was 35 minutes in preparing scripts, discharge planning with SW and RN, and preparing this discharge summary. Patient seen and examined on day of discharge. Justicifation of Admission Dx: Justifications for Admission: Justification of Admission Dx: Yes Altered Mental Status: Altered Mental Status JESSENIA HER MD May 25, 2020 04:36
== END 2020-05-24 13:00 | disposition home or self-care (01) | DRG 93 ==
LOC: ER 21:07 → 5 NORTH 23:30
PROVIDERS: ADMIT Family Medicine; ATTEND Family Medicine
DX: G92 Toxic encephalopathy (principal); F10.129 Alcohol abuse with intoxication, unspecified; E66.3 Overweight; J44.9 Chronic obstructive pulmonary disease, unspecified; S50.311A Abrasion of right elbow, initial encounter; I48.91 Unspecified atrial fibrillation; I10 Essential (primary) hypertension; G89.29 Other chronic pain; M19.90 Unspecified osteoarthritis, unspecified site; M25.561 Pain in right knee; M54.9 Dorsalgia, unspecified; M10.9 Gout, unspecified; K21.9 Gastro-esophageal reflux disease without esophagitis; E11.9 Type 2 diabetes mellitus without complications; E78.00 Pure hypercholesterolemia, unspecified; E78.5 Hyperlipidemia, unspecified; S50.811A Abrasion of right forearm, initial encounter; W18.30XA Fall on same level, unspecified, initial encounter; S80.212A Abrasion, left knee, initial encounter; Z20.822 Contact with and (suspected) exposure to COVID-19; Y90.8 Blood alcohol level of 240 mg/100 ml or more; Z68.31 Body mass index [BMI] 31.0-31.9, adult; Z87.891 Personal history of nicotine dependence; Z82.49 Family history of ischemic heart disease and other diseases of the circulatory system; Z87.01 Personal history of pneumonia (recurrent); Z98.49 Cataract extraction status, unspecified eye; Y93.89 Activity, other specified; Y92.89 Other specified places as the place of occurrence of the external cause; Y99.8 Other external cause status; Z88.8 Allergy status to other drugs, medicaments and biological substances
CPT/HCPCS: 36415; 70450; 72125; 73562; 80053; 80307; 80329; 81001; 82553; 82962; 83735; 84484; 85025; 85610; 85730; 87426; 90471; 90715; 93005; 96365; G0480; J1815; J3411; J3475; J3480; J7030; J7060; U0003; 99285-25; G0378; Q0163

== ENCOUNTER → 2020-06-25 | Outpatient (CLI) | payer MEDICARE, OTHER ==
[~2020-06-25] MED LIST changes: +ASPI-630 PO; +IOHEXOL 180 MG/ML 10 ML VIAL. ONE; +THIA100T22 PO; +methylPREDNISolone ACETATE 40 MG/ML VIAL. ONE; +methylPREDNISolone ACETATE 80 MG/ML VIAL. ONE
--- NOTE | 2020-06-25 10:08 | PDOC ---
Progress Note - Pain Clinic Date of Service: DOS: DATE: 06/25/20 TIME: 10:05 Diagnosis: Dx: Lumbar radiculopathy with lumbar degenerative disc disease lumbar spinal stenosis and post lumbar laminectomy syndrome History or Present Illness: HPI: 80-year-old male returns to follow-up status post lumbar epidural steroid injection 1 last seen February 25, 2020. Patient reports he did very well about 90% plus improvement in pain in the low back and the left lower extremity. Patient reports now the pain is across the low back in both the right and left lower extremities posterior gluteus posterior thigh posterior calf more on the left than the right but present bilaterally patient reports is a 10 on scale 10 is worst average and least is at 8 over the past week patient reports is a 10 today as well patient reports shooting down the legs aching and sharp in the back stabbing the back can be constant severe with walking standing initially doing much better with distance walking doing household activities work activities try with greater ease and comfort patient reports it is waking her from sleep now and has over the past month or 2 at about every 4-5 hours. Patient reports no new motor or sensory deficits no new bowel or bladder incontinence or other complaints. Physical Exam: VS: Pressure is 125/70 pulse 77 respirations 18 temperature 97.4 F weight is 231 pounds PE: PHYSICAL EXAMINATION: GENERAL: The patient is awake, alert, oriented, appropriate, very pleasant demeanor HEENT: Shows normocephalic, atraumatic. Extraocular movements are intact and symmetrical. Oral cavity: Mucous membranes moist and pink. NECK: Shows anterior throat supple without palpable lymphadenopathy noted. Swallow reflex symmetrical. CHEST: Shows normal on inspection. Breath sounds are clear bilaterally, distant but no rales or rhonchi. HEART: Shows S1, S2 clear. No murmurs auscultated. ABDOMEN: Soft, nontender, nondistended, obese. No palpable organomegaly is noted. BACK: Shows spine grossly in the midline. Normal-appearing cervical lordotic curvature. There is slightly increased thoracic kyphosis, some minor flattening of the lumbar lordotic curvature. Lumbar paraspinous muscles show symmetrical on inspection, on palpation shows some moderate tenderness diffusely throughout the upper, middle and lower distribution of the paraspinous muscles without specific trigger points, without radiation of pain. The patient has good rotational motion of the lumbar spine, both laterally as well as extension and flexion without significant difficulty. EXTREMITIES: Lower extremities show deep tendon reflexes 1+ in the patellar and tendo calcaneus tendons. Motor exam is 4 on a scale of 5 with right dorsiflexion, extension, quadriceps and hamstring flexion and 4/5 on the left. Peripheral pulses are 1+ posterior tibial. No peripheral edema is noted bilaterally. Lower extremities are warm and dry to touch, equal in color and appearance. SKIN: Shows warm and dry, good turgor. No edema. No sores, rashes or bruising throughout. Procedure: Procedure: Options were discussed with the patient. Patient chart was reviewed his his current medication regimen updated current review of systems updated today as well. We will proceed with a lumbar epidural steroid ejections today the first in the series with fluoroscopic guidance. Risks were discussed including but not limited to: Bleeding, infection, possibility of epidural hematoma and subsequent neurological compromise, dural puncture, headaches, spinal cord and/or nerve damage, side effects of steroid medication, and poor results regarding pain control. Patient understands and wished to proceed. Patient will return to clinic in approximate 2 weeks for follow-up, was counseled as return appointment activity levels and side effects to be aware of. Medication Injected: Med Injected: Procedure is lumbar epidural steroid injection under local anesthetic using sterile prep and drape at the L5-S1 level using C-arm fluoroscopic guidance in both AP and lateral views medications injected is 120 mg Depo-Medrol + 10 mL preservative-free normal saline and 2 mL contrast- condition at discharge is stable patient tolerated procedure well had no complications. Condition at Discharge: Condition at Discharge: Condition at discharge stable, patient tolerated procedure well and had no complications. CARIE JUNE MD Jun 25, 2020 10:08
--- NOTE | 2020-06-25 10:09 | PDOC4 ---
PROCEDURE Procedure Patient was consented for lumbar epidural steroid injection. Risks were dis cussed including but not limited to: Bleeding, infection, possibility of epidural hematoma and subsequent neurological compromise, dural puncture, headaches, spinal cord and/or nerve damage, side effects of steroid medication, and poor results regarding pain control. Patient understands and wished to proceed. Procedure is lumbar epidural steroid injection under local anesthetic using sterile prep and drape at the L5-S1 level using C-arm fluoroscopic guidance in both AP and lateral views medications injected is 120 mg Depo-Medrol + 10 mL preservative-free normal saline and 2 mL contrast- condition at discharge is stable patient tolerated procedure well had no complications. CARIE JUNE MD Jun 25, 2020 10:09
== END | disposition home or self-care (01) ==
LOC: PNCL 09:25
PROVIDERS: ATTEND Anesthesiology
DX: M51.16 Intervertebral disc disorders with radiculopathy, lumbar region (principal); M48.061 Spinal stenosis, lumbar region without neurogenic claudication; M96.1 Postlaminectomy syndrome, not elsewhere classified; I11.0 Hypertensive heart disease with heart failure; I50.9 Heart failure, unspecified; E78.00 Pure hypercholesterolemia, unspecified; I48.91 Unspecified atrial fibrillation; M19.90 Unspecified osteoarthritis, unspecified site; K21.9 Gastro-esophageal reflux disease without esophagitis; J44.9 Chronic obstructive pulmonary disease, unspecified; M10.9 Gout, unspecified; E11.42 Type 2 diabetes mellitus with diabetic polyneuropathy; Z87.891 Personal history of nicotine dependence; Z79.82 Long term (current) use of aspirin; Z79.84 Long term (current) use of oral hypoglycemic drugs; Z79.899 Other long term (current) drug therapy; Z98.890 Other specified postprocedural states; Z72.89 Other problems related to lifestyle; Z88.8 Allergy status to other drugs, medicaments and biological substances
CPT/HCPCS: 62323; J1030; J1040; Q9965; 77002

== ENCOUNTER → 2020-07-09 | Outpatient (CLI) | payer MEDICARE, OTHER ==
--- NOTE | 2020-07-09 12:24 | PDOC ---
Progress Note - Pain Clinic Date of Service: DOS: DATE: 07/09/20 TIME: 12:22 Diagnosis: Dx: Lumbar radiculopathy with lumbar degenerative disc disease lumbar spinal stenosis and lumbar postlaminectomy syndrome History or Present Illness: HPI: 80-year-old male returns follow-up status post lumbar epidural steroid traction x1 last seen June 25, 2020. Patient reports she did well about 90% improvement for about the first 2 to 3 weeks the pain began to return in the low back and mostly in the left lower extremity greater than right but present bilaterally. Patient reports a 10 on scale 10 is worst over the past week 8 on average 8 its least is an 8 today patient describes it as sharp and aching tight shooting pain in the lower extremity mostly the posterior gluteus and posterior thigh on the left side but also some on the right patient reports a stabbing can be severe with walking standing better with sitting laying down generally is not awakening from sleep. Patient reports no new motor or sensory deficits no new bowel or bladder incontinence or other complaints. Physical Exam: VS: Blood pressure is 115/67 pulse 80 respirations 18 temperature 97.6 F height is 6 foot 1 inch weight is 231 pounds PE: PHYSICAL EXAMINATION: GENERAL: The patient is awake, alert, oriented, appropriate, very pleasant demeanor HEENT: Shows normocephalic, atraumatic. Extraocular movements are intact and symmetrical. Oral cavity: Mucous membranes moist and pink. NECK: Shows anterior throat supple without palpable lymphadenopathy noted. Swallow reflex symmetrical. CHEST: Shows normal on inspection. Breath sounds are clear bilaterally. HEART: Shows S1, S2 clear. No murmurs auscultated. ABDOMEN: Soft, nontender, nondistended, obese. No palpable organomegaly is noted. BACK: Shows spine grossly in the midline. Normal-appearing cervical lordotic curvature. There is slightly increased thoracic kyphosis, some minor flattening of the lumbar lordotic curvature. Lumbar paraspinous muscles show symmetrical on inspection, on palpation shows some moderate tenderness diffusely throughout the upper, middle and lower distribution of the paraspinous muscles without specific trigger points, without radiation of pain. The patient has good rotational motion of the lumbar spine, both laterally as well as extension and flexion without significant difficulty. EXTREMITIES: Lower extremities show deep tendon reflexes 1+ in the patellar and tendo calcaneus tendons. Motor exam is 4 on a scale of 5 with right dorsiflex ion, extension, quadriceps and hamstring flexion and 4/5 on the left. Peripheral pulses are 1+ posterior tibial. No peripheral edema is noted bilaterally. Lower extremities are warm and dry to touch, equal in color and appearance. SKIN: Shows warm and dry, good turgor. No edema. No sores, rashes or bruising throughout. Procedure: Procedure: Options were discussed with the patient. Patient chart reviews his current medication regimen updated current review of systems updated today as well. We will proceed with a second in the series lumbar epidural steroid ejections today with fluoroscopic guidance. Risks were discussed including but not limited to: Bleeding, infection, possibility of epidural hematoma and subsequent katiana rological compromise, dural puncture, headaches, spinal cord and/or nerve damage, side effects of steroid medication, and poor results regarding pain control. Patient understands and wished to proceed. Patient will return to clinic in approximate 2 weeks for follow-up, was counseled as to return appointment activity level and side effects to be aware of. Medication Injected: Med Injected: Procedure is lumbar epidural steroid injection under local anesthetic using sterile prep and drape at the L5-S1 level using C-arm fluoroscopic guidance in both AP and lateral views medications injected is 120 mg Depo-Medrol + 10 mL preservative-free normal saline and 2 mL contrast- condition at discharge is stable patient tolerated procedure well had no complications. Condition at Discharge: Condition at Discharge: Condition at discharge stable, patient tolerated procedure well and had no complications. CARIE JUNE MD Jul 09, 2020 12:24
--- NOTE | 2020-07-09 12:25 | PDOC4 ---
PROCEDURE Procedure Patient was consented for lumbar epidural steroid injection. Risks were disc ussed including but not limited to: Bleeding, infection, possibility of epidural hematoma and subsequent neurological compromise, dural puncture, headaches, spinal cord and/or nerve damage, side effects of steroid medication, and poor results regarding pain control. Patient understands and wished to proceed. Procedure is lumbar epidural steroid injection under local anesthetic using sterile prep and drape at the L5-S1 level using C-arm fluoroscopic guidance in both AP and lateral views medications injected is 120 mg Depo-Medrol + 10 mL preservative-free normal saline and 2 mL contrast- condition at discharge is stable patient tolerated procedure well had no complications. CARIE JUNE MD Jul 09, 2020 12:25
== END | disposition home or self-care (01) ==
LOC: PNCL 10:55
PROVIDERS: ATTEND Anesthesiology
DX: M51.16 Intervertebral disc disorders with radiculopathy, lumbar region (principal); M48.061 Spinal stenosis, lumbar region without neurogenic claudication; M96.1 Postlaminectomy syndrome, not elsewhere classified; I11.0 Hypertensive heart disease with heart failure; I50.9 Heart failure, unspecified; I48.91 Unspecified atrial fibrillation; E78.00 Pure hypercholesterolemia, unspecified; J44.9 Chronic obstructive pulmonary disease, unspecified; M19.90 Unspecified osteoarthritis, unspecified site; E11.9 Type 2 diabetes mellitus without complications; G47.30 Sleep apnea, unspecified; K21.9 Gastro-esophageal reflux disease without esophagitis; M10.9 Gout, unspecified; N40.0 Benign prostatic hyperplasia without lower urinary tract symptoms; Z87.891 Personal history of nicotine dependence; Z79.82 Long term (current) use of aspirin; Z79.84 Long term (current) use of oral hypoglycemic drugs; Z79.899 Other long term (current) drug therapy; Z90.49 Acquired absence of other specified parts of digestive tract; Z98.890 Other specified postprocedural states; Z87.440 Personal history of urinary (tract) infections; Z88.8 Allergy status to other drugs, medicaments and biological substances; Z72.89 Other problems related to lifestyle
CPT/HCPCS: 62323; J1030; J1040; Q9965

== ENCOUNTER 2020-08-20 16:40 | Emergency (ER) | payer MEDICARE, OTHER ==
[~2020-08-20] VITALS: Ht 182.9 cm; Wt 100.0 kg
[~2020-08-20 16:40] MED LIST changes: -IOHEXOL 180 MG/ML 10 ML VIAL. ONE; -methylPREDNISolone ACETATE 40 MG/ML VIAL. ONE; -methylPREDNISolone ACETATE 80 MG/ML VIAL. ONE
[2020-08-20] MEDS ORDERED: LIDO:MAALOX 1:1 20 ML SINGLE DOSE. SWSW ONE (17:30)
--- NOTE | 2020-08-20 17:37 | EKG ---
[facility] [address] [place] [address] Test Date: 2020-08-20 Test Time: 16:46:28 Pat Name: JASMYNE GALLEGOS Department: Room: Gender: M [employer]aving [employer]man: : 1940 Requested By: JERMAIN COLLAZO Order Number: [id number] Reading MD: Measurements Intervals [place] Rate: 84 P: CO: QRS: -4 QRSD: 88 T: 11 QT: 354 QTc: 421 Interpretive Statements IRREGULAR RHYTHM, NO P-WAVE FOUND LEFTWARD AXIS LOW LIMB LEAD VOLTAGE QRS(T) CONTOUR ABNORMALITY CONSISTENT WITH ANTEROSEPTAL INFARCT PROBABLY OLD ABNORMAL ECG RI6.01 No previous ECG available for comparison
[2020-08-20 17:39] LABS: BASO # 0.1 x10^3/uL (0.0-0.2); BASO % 1 % (0-3); EOS # 0.1 x10^3/uL (0.0-0.7); EOS % 2 % (0-3); HEMATOCRIT 42.1 % (39.0-53.0); LYMPH # 1.3 x10^3/uL (1.0-4.8); LYMPH % 17 % (24-48); MEAN CORPUSCULAR HEMOGLOBIN 32 pg (25-35); MEAN CORPUSCULAR HGB CONC 33 g/dL (31-37); MEAN CORPUSCULAR VOLUME 95 fL (79-100); MONO % 13 % (0-9); NEUT # 5.2 x10^3/uL (1.8-7.7); NEUT % 68 % (31-73); PLATELET COUNT 142 x10^3/uL (140-400); RED BLOOD COUNT 4.45 x10^6/uL (4.30-5.70); RED CELL DISTRIBUTION WIDTH 15.3 % (11.5-14.5); WHITE BLOOD COUNT 7.7 x10^3/uL (4.0-11.0)
--- NOTE | 2020-08-20 17:46 | ED.ADGEN ---
Past Medical History Past Medical History: A-Fib, COPD, Diabetes-Type II, High Cholesterol, Hypertension, Other Additional Past Medical Histor: CARDIAC CATH 2003 Past Surgical History: Cholecystectomy, Other Additional Past Surgical Histo: BILAT BIG TOES, CATARACT, BACK SURG Smoking Status: Former Smoker Additional Information: CIGAR Alcohol Use: Occasionally Drug Use: Opiates General Adult EDM: Chief Complaint: CHEST PAIN HPI: HPI: Patient is an 80-year-old male who presents the emergency room complaining of a right-sided chest pain. He states that it started earlier today and was initially intermittent. He states it feels like a burning pain. He states that for a couple of minutes it did radiate into his neck but no longer radiates. He states that it is progressively gotten better since he has been here in the [facility] room. He denies shortness of breath, dizziness, diaphoresis, nausea, vomiting, abdominal pain. He states it feels somewhat like heartburn. He called the nursing line who told him that he should get checked out to ensure that it was not his heart. Review of Systems: Review of Systems: Complete ROS is negative unless otherwise documented in HPI Current Medications: Current Medications Medications (Trade) Dose Ordered Sig/Dejuan Start Time Stop Time Status Last Admin Dose Admin Multi-Ingredient Mouthwash/Gargle (Gi Cocktail) 20 ml 1X ONCE 08/20/20 17:30 08/20/20 17:31 DC 08/20/20 17:39 20 ML Allergies: Allergies: Allergies Coded Allergies Type Severity Reaction Last Updated Verified Cxoukos-Gzh-Unn Reductase Inhibitor Allergy Intermediate 10/21/18 Yes Physical Exam: PE: General: Awake, alert, NAD. Well Nourished, well hydrated. Cooperative HEENT: Atraumatic, EOMI, PERRL, airway patent, moist oral mucosa Neck: Supple, trachea midline Respiratory: CTA bilaterally, normal effort, no wheezing/crackles CV: RRR, no murmur, cap refill <2 GI: Soft, nondistended, nontender, no masses MSK: No obvious deformities Skin: Warm, dry, intact Neuro: A&O x3, speech NL, sensory and motor grossly intact, no focal deficits Psych: Normal affect, normal mood, not suicidal or homicidal Current Patient Data: Labs: Laboratory Tests Test 08/20/20 16:53 08/20/20 19:20 White Blood Count 7.7 x10^3/uL (4.0-11.0) Red Blood Count 4.45 x10^6/uL (4.30-5.70) Hemoglobin 14.0 g/dL (13.0-17.5) Hematocrit 42.1 % (39.0-53.0) Mean Corpuscular Volume 95 fL (79-100) Mean Corpuscular Hemoglobin 32 pg (25-35) Mean Corpuscular Hemoglobin Concent 33 g/dL (31-37) Red Cell Distribution Width 15.3 % (11.5-14.5) H Platelet Count 142 x10^3/uL (140-400) Neutrophils (%) (Auto) 68 % (31-73) Lymphocytes (%) (Auto) 17 % (24-48) L Monocytes (%) (Auto) 13 % (0-9) H Eosinophils (%) (Auto) 2 % (0-3) Basophils (%) (Auto) 1 % (0-3) Neutrophils # (Auto) 5.2 x10^3/uL (1.8-7.7) Lymphocytes # (Auto) 1.3 x10^3/uL (1.0-4.8) Monocytes # (Auto) 1.0 x10^3/uL (0.0-1.1) Eosinophils # (Auto) 0.1 x10^3/uL (0.0-0.7) Basophils # (Auto) 0.1 x10^3/uL (0.0-0.2) Sodium Level 136 mmol/L (136-145) Potassium Level 4.4 mmol/L (3.5-5.1) Chloride Level 102 mmol/L (98-107) Carbon Dioxide Level 27 mmol/L (21-32) Anion Gap 7 (6-14) Blood Urea Nitrogen 15 mg/dL (8-26) Creatinine 0.9 mg/dL (0.7-1.3) Estimated GFR (Cockcroft-Gault) 81.0 Glucose Level 130 mg/dL (70-99) H Calcium Level 8.9 mg/dL (8.5-10.1) Total Bilirubin 0.6 mg/dL (0.2-1.0) Direct Bilirubin 0.2 mg/dL (0.0-0.2) Aspartate Amino Transferase (AST) 19 U/L (15-37) Alanine Aminotransferase (ALT) 14 U/L (16-63) L Alkaline Phosphatase 72 U/L (46-116) Troponin I Quantitative < 0.017 ng/mL (0.000-0.055) < 0.017 ng/mL (0.000-0.055) Total Protein 6.6 g/dL (6.4-8.2) Albumin 3.6 g/dL (3.4-5.0) Laboratory Tests 08/20/20 16:53 Laboratory Tests 08/20/20 16:53 Vital Signs: Vital Signs Date Time Temp Pulse Resp B/P (MAP) Pulse Ox O2 Delivery O2 Flow Rate FiO2 08/20/20 18:30 78 141/76 (97) 97 Room Air 08/20/20 16:42 98.0 16 98.0 EKG: EKG: [] EKG performed at 1846 A. fib rate controlled rate of [address] no ST depression no acute NM Heart Score: C/O Chest Pain: Yes HEART Score for Chest Pain: HEART Score for Chest Pain Response (Comments) Value History Slighlty/Non-Suspicious 0 ECG Normal 0 Age > 65 2 Risk Factors 1 or 2 Risk Factors 1 Troponin < Normal Limit 0 Total 3 Risk Factors: Risk Factors: DM, Current or recent (<one month) smoker, HTN, HLP, family history of CAD, obesity. Risk Scores: Score 0 - 3: 2.5% MACE over next 6 weeks - Discharge Home Score 4 - 6: 20.3% MACE over next 6 weeks - Admit for Clinical Observation Score 7 - 10: 72.7% MACE over next 6 weeks - Early Invasive Strategies Radiology/Procedures: Radiology/Procedures: [] Course & Med Decision Making: Course & Med Decision Making Pertinent Labs and Imaging studies reviewed. (See chart for details) Patient is a 80 year-old male who presents to the Emergency Room complaining of chest pain of atypical nature. History is significant for burning right-sided pain. At this time, given patient's risk factors and story there is concern for possible cardiac pathology. EKG was ordered and shows atrial fibrillation that is rate controlled without ST changes. At this time there is no signs of STEMI, pericarditis, or unstable arrthymia on EKG. Patient has received aspirin today. CBC, BMP, troponin, CXR were ordered to evaluate for causes of chest pain including ACS, anemia, electrolyte abnormalities that can lead to arrhythmias, PTX, pneumonia, pneumomediastinum. Patient does not have any abdominal tenderness that would suggest pancreaititis or cholecystitis and does not need an abdominal work up at this time. Patient's HEART score is 3 placing the patient at low risk. Patient was given GI cocktail for possible heartburn. Patient discussed with Dr. Solares who will assume care. Patient evaluated 1915hrs. All results reviewed and discussed with patient. Initial trop negative. Advised plan to repeat trop now. Patients pain completely resolved. 1954HRS- REPEAT trop negative continues to deny pain. Benedict Disclaimer: Benedict Disclaimer: This electronic medical record was generated, in whole or in part, using a voice recognition dictation system. Departure Departure Impression: Primary Impression: Chest pain Disposition: HOME / SELF CARE / HOMELESS Condition: STABLE Referrals: FLO FAITH DO (PCP) Patient Instructions: Chest Pain (Nonspecific) JERMAIN COLLAZO MD August 20, 2020 17:46 MITZY SOLARES DO August 20, 2020 18:43
[2020-08-20 17:53] LABS: CALCIUM 8.9 mg/dL (8.5-10.1); CREATININE 0.9 mg/dL (0.7-1.3); POTASSIUM 4.4 mmol/L (3.5-5.1)
[2020-08-20 17:59] LABS: ALBUMIN 3.6 g/dL (3.4-5.0); DIRECT BILIRUBIN 0.2 mg/dL (0.0-0.2); TOTAL BILIRUBIN 0.6 mg/dL (0.2-1.0); TOTAL PROTEIN 6.6 g/dL (6.4-8.2)
--- NOTE | 2020-08-20 19:00 | RAD ---
EXAM: PA and Lateral Views of the Chest DATE: 08/20/2020 6:12 PM INDICATION: Reason: chest pain / Spl. Instructions: / History: COMPARISON: No Prior FINDINGS: The heart is not enlarged. Vascular calcifications are seen. Prominence of pulmonary arterial trunk m ay be seen with pulmonary arterial hypertension. No focal parenchymal airspace opacity. No pleural effusion or pneumothorax. IMPRESSION: 1. No radiographic evidence for acute cardiopulmonary process. 2. Prominence of pulmonary arterial trunk may be seen with pulmonary arterial hypertension. Electronically signed by: Roge Gunn MD (08/20/2020 6:57 PM) MONIE
[2020-08-20 20:15] VITALS: BP 154/82
== END 2020-08-20 20:15 | disposition home or self-care (01) ==
LOC: ER 16:40
DX: R07.89 Other chest pain (principal); I48.91 Unspecified atrial fibrillation; J44.9 Chronic obstructive pulmonary disease, unspecified; E11.9 Type 2 diabetes mellitus without complications; E78.00 Pure hypercholesterolemia, unspecified; I10 Essential (primary) hypertension; Z90.49 Acquired absence of other specified parts of digestive tract; Z88.8 Allergy status to other drugs, medicaments and biological substances
CPT/HCPCS: 36415; 71046; 80048; 80076; 84484; 85025; 93005; 99285

== ENCOUNTER → 2020-09-24 | Outpatient (CLI) | payer MEDICARE, OTHER ==
[~2020-09-24] MED LIST changes: +REGADENOSON 0.4 MG/5 ML DISP.SYRIN. IV ONE
--- NOTE | 2020-09-24 13:36 | RAD ---
MR#: [id number] Date of Study: 09/24/2020 Ordering Physician: NEAL DURAN, Referring Physician: JUICE NEWBERRY Tech: YANELIS Paul APPROVED REPORT Test Type: Pharmacological Stress Nurse/Tech: Erlinda Sheldon R.N. Test Indications: pre op Cardiac History: copd, mitral valve prolapse, dm, Medications: see ehr Medical History: see ehr Resting ECG: afib Resting Heart Rate: 66 bpm Resting Blood Pressure: 124/67mmHg Pretest Chest Pain: No chest pain Nurse/Tech Notes lungs cta, heart tones irregular Consent: The procedure was explained to the patient in lay terms. Informed consent was witnessed. Cb eout was entered into [facility] [facility]. History and Stress Test performed by RT Pratibha (R) (N) Pharm. Details Pharmacologic stress testing was performed using 0.4mg per 5ml of regadenoson given intravenously ove r 7-10 seconds. Stress Symptoms pt c/o R shoulder pain that resolved, Dizziness POST EXERCISE Reason for Termination: Infusion complete Target HR: No Max HR: 101 bpm Max Blood Pressure: 116/57mmHg Chest Pain: Yes. see above Arrhythmia: No. ST Change: No. INTERPRETATION Stress EKG Conclusion: The resting EKG showed atrial fibrillation with nonspecific ST-T wave changes. The stress EKG showed no significant changes from baseline. No EKG evidence of stress-induced ischemia. Imaging Protocol IMAGE PROTOCOL: Rest Tc-99m/stress Tc-99m 1 day Rest: Stress: Viability: Radiopharm.Tc99m SrqviqcunBg70w Sestamibi Vmmv21wWc 32.5mCi Duration 15min. 10min. Img Date 09/24/2020 09/24/2020 Inj-Img Odhb16mqa. 60min. Rest Admin Site:IV - Right AntecubitalAdministrator:YANELIS Paul Stress Admin Site: IV - Right AntecubitalAdministrator: RT Pratibha (R)(N) STRESS DATA End Diast. Vol.124.0mlAv. Heart Rate77.0bpm End Syst. Vol.37.0mlCO Index BSA0.0L/min Myocardial Rrkc025.0gEject. Bwqerawd24.0% Stress Rates Pk. Fill Rate3.17EDV/secLVtime Pk. Fill 155.34msec Pk. Empty Rate4.31ESV/secLVtime Pk. Jvowd670.80msec 1/3 Pk. Fill2.02EDV/sec Stress Scores Regional WT0.00Summed WT1.00 Regional WM0.00Summed WM0.00 LV Perfusion The stress scans showed no significant defects. The rest scans showed no significant defects. Nuclear imaging shows no reversible ischemia or infarct. Wall Motion Left ventricular systolic function is normal with an ejection fraction of 67%. LV Perf. Quant 17 Seg. SSS0.00 17 Seg. SRS0.00 17 Seg. SDS0.00 Stress Defect Extent (% LAD)0.00Rest Defect Extent (% LAD)0.00Rev. Defect Extent (% LAD)0.00 Stress Defect Extent (% LCX) 0.00Rest Defect Extent (% LCX)0.00Rev. Defect Extent (% LCX)0.00 Stress Defect Extent (% RCA)0.00Rest Defect Extent (% RCA)0.00Rev. Defect Extent (% RCA)0.00 Stress Defect Extent (% JIL)0.00Rest Defect Extent (% JIL)0.00Rev. Defect Extent (% JIL)0.00 Conclusion 1. No EKG evidence of stress-induced ischemia. 2. Nuclear imaging shows no reversible ischemia or infarct. 3. Normal left ventricular systolic function with an ejection fraction of 67%. 4. Low risk Lexiscan nuclear stress test. Signed by : Neal Duran MD Electronically Approved : 09/24/2020 13:36:05
== END ==
LOC: NM 09:13
PROVIDERS: ATTEND Internal Medicine Cardiovascular Disease
DX: R07.9 Chest pain, unspecified (principal)
CPT/HCPCS: 78452; 93017; A9500; J2785

== ENCOUNTER → 2021-01-10 | Day surgery (SDC) | payer MEDICARE, OTHER ==
[~2021-01-10] VITALS: Ht 182.9 cm; Wt 102.2 kg
[~2021-01-10] MED LIST changes: +BACITRACIN TOPICAL OINT PACKET. TP ONE; +BUDE10.2 IH; +BUPIVACAINE MPF 0.25% 30 ML VIAL. ONE; +HYDROmorphone 2 MG/ML VIAL IVP PRN; +IV RINGERS,LACTATED 1000ML 1,000 ML IV SCH; +LIDOCAINE 2% PF 5 ML VIAL. ONE; +MORPHINE SULFATE 2 MG/ML INJ. IVP PRN; +ONDA4TAB7 PO; +ONDANSETRON PF 4 MG/2 ML VIAL. ONE; +PROCHLORPERAZINE 10 MG/2 ML VIAL. IVP PRN; +PROPOFOL 10 MG/ML (20ML) VIAL. IV ONE; -REGADENOSON 0.4 MG/5 ML DISP.SYRIN. IV ONE; +TAMS0.4C97 PO; +fentaNYL PF VIAL 100 MCG/2 ML VIAL IVP PRN; +fentaNYL PF VIAL 100 MCG/2 ML VIAL ONE
[2021-01-10 08:33] VITALS: BP 137/76
--- NOTE | 2021-01-10 10:34 | PDOC4 ---
OPERATIVE NOTE Date: Date: Jan 10, 2021 Pre-Op Diagnosis: Ganglion cyst of right dorsal wrist Post-Op Diagnosis: Same Procedure Performed: Excision of ganglion cyst right dorsal wrist 9:27 AM to 10:00 AM CPT 62820 Surgeon: Dariana Carbone MD Anesthesia Type: Sedation and local with 1% lidocaine +1: 100,000 epinephrine Blood Loss: 20 mL Specimans Obtained: Ganglion cyst right wrist Findings: See operative note Complications: None Operative Note: Indication This is an 80-year-old male who presents with significant pain and functional impairment from a ganglion cyst which is unamenable to aspiration. The patient understands the benefits, alternatives, and risks of bleeding, infection, damage to surrounding structures, recurrence, and desires to proceed. Procedure After informed consent was taken in the perioperative area the patient was brought to the operating room and placed on the table in supine position. A timeout was performed verifying the correct patient and correct procedure. Monitored sedation and local anesthesia were administered. A tourniquet was applied to the forearm and the right upper extremity was prepped and draped in a sterile fashion. The cyst was identified through visual inspection and palpation of the dorsum of the wrist. A tourniquet pressure was applied with exsanguination and a vertical incision was made directly over the large cyst with a #15 scalpel. Blunt dissection was carried down through the subcutaneous tissue past the antebrachial fascia, down to and around the cyst wall. Care was taken to identify and preserve the sensory branches of the radial nerve. Due to the size of the cyst it was ruptured for better visibility. Dissection proceeded down to the level of the extensor retinaculum where the stalk of the c yst was located. The stalk was teased circumferentially from the connection to the joint capsule. The stalk was then cauterized with electrocautery and the specimen handed off for pathologic examination. A branch of the radial artery was encountered and cauterized. The wound was thoroughly irrigated with saline solution. Hemostasis was adequate achieved with monopolar cautery. The cyst deep dermis was closed with 4-0 Vicryl suture. The skin was approximated with 40 nylon horizontal mattress sutures. A simple dressing was applied. The patient tolerated procedure well and was taken to the PACU in stable condition. DARIANA CARBONE MD Jan 10, 2021 10:34
[2021-01-10 12:12] VITALS: BP 116/67
--- NOTE | 2021-01-11 16:10 | PATHOLOGY ---
[facility] Accession Number: [id number] . 01 Material submitted: . wrist - RIGHT WRIST GANGLION CYST. Modifiers: right . 02 Diagnosis: Segments of dense fibrous and fibroadipose tissue, right wrist: - Ganglion cyst. (JPM/db; 01/11/2021) LBQ 01/11/2021 1318 Local . 02 Electronically signed: . Gregorio Carson MD, Pathologist NPI- [id number] . 01 Gross description: . The specimen is received in formalin, labeled "David Coy, right wrist ganglion cyst". Received are 2 irregular segments of light ontiveros to red-brown tissue measuring 2.5 x 1.0 x 0.4 and 1.8 x 0.5 x 0.3 cm in greatest dimensions. The surgical margin is inked. The specimen is entirely submitted in cassette A1-A2, with the largest segment bisected and submitted in cassette A2. ([facility]; 01/10/2021) NRI/NRI 01/10/20214 Local . 02 Pathologist provided ICD-10: M67.431 . 02 CPT . 067433 Specimen Comment: A courtesy copy of this report has been sent to [phone], [phone] Specimen Comment: [id number] Specimen Comment: Report sent to / DR FAITH [facility]formed [facility]: [facility] [address], [place] [id number] MD Mike Martinez MD Phone: [phone] Performed at: [facility] [address] [place], [place] [id number] MD Gregorio Carson MD Phone: [phone]
== END | disposition home or self-care (01) ==
LOC: SURG 07:58
PROVIDERS: ATTEND Plastic Surgery
DX: M67.431 Ganglion, right wrist (principal); I11.0 Hypertensive heart disease with heart failure; I50.9 Heart failure, unspecified; I48.91 Unspecified atrial fibrillation; E78.00 Pure hypercholesterolemia, unspecified; M19.90 Unspecified osteoarthritis, unspecified site; J44.9 Chronic obstructive pulmonary disease, unspecified; G47.30 Sleep apnea, unspecified; M10.9 Gout, unspecified; K21.9 Gastro-esophageal reflux disease without esophagitis; E11.9 Type 2 diabetes mellitus without complications; Z87.891 Personal history of nicotine dependence; Z98.890 Other specified postprocedural states; Z79.899 Other long term (current) drug therapy; Z79.84 Long term (current) use of oral hypoglycemic drugs; Z72.89 Other problems related to lifestyle; Z88.8 Allergy status to other drugs, medicaments and biological substances; Z82.49 Family history of ischemic heart disease and other diseases of the circulatory system; Z20.822 Contact with and (suspected) exposure to COVID-19
CPT/HCPCS: 25111; 87426; A4213; A4930; J0690; J2405; J2704; J3010; J3490; 88304; A4657; A6452

== ENCOUNTER → 2021-03-03 | Outpatient (CLI) | payer MEDICARE, OTHER ==
[2021-01-10 12:12] VITALS: BP 116/67
[~2021-03-03] MED LIST changes: -BACITRACIN TOPICAL OINT PACKET. TP ONE; -BUPIVACAINE MPF 0.25% 30 ML VIAL. ONE; -HYDROmorphone 2 MG/ML VIAL IVP PRN; -IV RINGERS,LACTATED 1000ML 1,000 ML IV SCH; -LIDOCAINE 2% PF 5 ML VIAL. ONE; -MORPHINE SULFATE 2 MG/ML INJ. IVP PRN; -ONDANSETRON PF 4 MG/2 ML VIAL. ONE; -PROCHLORPERAZINE 10 MG/2 ML VIAL. IVP PRN; -PROPOFOL 10 MG/ML (20ML) VIAL. IV ONE; -fentaNYL PF VIAL 100 MCG/2 ML VIAL IVP PRN; -fentaNYL PF VIAL 100 MCG/2 ML VIAL ONE
--- NOTE | 2021-03-03 13:41 | KCIC ---
Examination: MRI of the right knee without contrast HISTORY: History of right knee pain COMPARISON: None available Technique: Multiplanar, multisequence MR imaging of the right knee was performed without contrast FINDINGS: The anterior cruciate ligament, posterior cruciate ligament appears intact. The medial meniscus appea rs intact. There is subtle horizontal increased signal identified in the body of the lateral meniscus could be small degenerative tear. The medial collateral ligament appears intact. The lateral collate ral ligamentous complex including the fibular collateral ligament, biceps femoris tendon, popliteus t endon appears intact. Small knee joint effusion. There is mild superficial fraying of cartilage ident ified in the medial, lateral, patellofemoral compartments. Trace popliteal cyst. Moderate joint space loss medial, lateral, patellofemoral compartments. IMPRESSION: 1. Subtle horizontal increased signal identified in the body of the lateral meniscus could be small degenerative tear. 2. Small knee joint effusion with tiny popliteal cyst. 3. Moderate tricompartmental degenerative changes. Electronically signed by: Marcos Coon MD (03/03/2021 1:38 PM) [id number]
--- NOTE | 2021-03-03 14:48 | KCIC ---
Examination: MRI of the left knee without contrast HISTORY: History of left knee pain COMPARISON: None available TECHNIQUE: Multiplanar, multisequence MR imaging of the left knee without contrast. FINDINGS: The anterior cruciate ligament, posterior cruciate ligament appears intact. There is subtle blunting of the body of the medial meniscus likely small radial tear. The lateral meniscus appears intact. The medial collateral ligament appears intact. Lateral collateral ligament is complex including the fibu lar collateral ligament, biceps femoris, popliteus tendon appears intact. The extensor mechanism appe ars intact. Small knee joint effusion. The medial, lateral retinaculum appears intact. Moderate joint space loss medial, lateral compartment femoral compartments. Mild superficial fraying of cartilage in the medial , lateral compartment femoral compartments IMPRESSION: 1. Subtle blunting of the body of the medial meniscus likely small radial tear. 2. Moderate tricompartmental degenerative changes. 3. Small knee joint effusion. Electronically signed by: Marcos Coon MD (03/03/2021 2:46 PM) [id number]
== END ==
LOC: KCIC MRI 12:18
PROVIDERS: ATTEND Orthopaedic Surgery
DX: M17.0 Bilateral primary osteoarthritis of knee (principal); M71.21 Synovial cyst of popliteal space [Baker], right knee; M25.462 Effusion, left knee; M25.461 Effusion, right knee; M25.561 Pain in right knee; M25.562 Pain in left knee
CPT/HCPCS: 73721

== ENCOUNTER 2021-05-04 19:43 | Emergency (ER) | payer MEDICARE, OTHER ==
[~2021-05-04] VITALS: Ht 182.9 cm; Wt 113.0 kg
[2021-05-04] MEDS ORDERED: IV NORMAL SALINE 1000ML BAG 1,000 ML IV SCH (20:15)
--- NOTE | 2021-05-04 20:16 | RAD ---
AP chest x-ray HISTORY: Left arm pain, numbness and weakness. COMPARISON: Chest x-ray August 20, 2020 FINDINGS: Heart size upper limits normal stable. Aortic arch calcified plaque. Enlargement of the maribell n pulmonary artery silhouette and mild prominence of the pulmonary arteries at the reba likely repres ent pulmonary artery hypertension changes, stable. No pneumothorax. No pulmonary opacities. No pleura l effusions. Bones are unremarkable. IMPRESSION: No acute process. Stable exam as described above. Electronically signed by: Wlaly Medina MD (05/04/2021 8:14 PM) [facility]
[2021-05-04 20:17] LABS: BASO # 0.1 x10^3/uL (0.0-0.2); BASO % 1 % (0-3); EOS # 0.2 x10^3/uL (0.0-0.7); EOS % 3 % (0-3); HEMATOCRIT 45.6 % (39.0-53.0); HEMOGLOBIN 15.3 g/dL (13.0-17.5); LYMPH # 1.5 x10^3/uL (1.0-4.8); LYMPH % 18 % (24-48); MEAN CORPUSCULAR HEMOGLOBIN 31 pg (25-35); MEAN CORPUSCULAR HGB CONC 33 g/dL (31-37); MEAN CORPUSCULAR VOLUME 93 fL (79-100); MONO # 0.8 x10^3/uL (0.0-1.1); MONO % 10 % (0-9); NEUT # 5.9 x10^3/uL (1.8-7.7); NEUT % 69 % (31-73); PLATELET COUNT 152 x10^3/uL (140-400); RED CELL DISTRIBUTION WIDTH 15.4 % (11.5-14.5); WHITE BLOOD COUNT 8.5 x10^3/uL (4.0-11.0)
--- NOTE | 2021-05-04 20:17 | PHYS DOC ---
Past Medical History Past Medical History: A-Fib, COPD, Diabetes-Type II, High Cholesterol, Hy pertension, Other Additional Past Medical Histor: CARDIAC CATH 2003 Past Surgical History: Cholecystectomy, Other Additional Past Surgical Histo: BILAT BIG TOES, CATARACT, BACK SURG Smoking Status: Former Smoker Alcohol Use: Occasionally Drug Use: Opiates General Adult EDM: Chief Complaint: CHEST PAIN-CARDIAC NATURE HPI: HPI: 81 yo M PMH HTN, HLD, copd (h/o oxygen use, not currently), afib (on no AC), mild-mod CAD (cath 2013) and daily alcohol use, presents to the ED brought in by EMS with complains of sudden onset of left arm pain described as numbness, aching and weak that radiated to his elbow and just under his left shoulder. Symptoms started when patient was sitting down at the kitchen counter at 7 PM and resolved shortly after EMS arrival-the symptoms lasted for less than 20 minutes. Took 3 baby aspirin prior to EMS arrival. Had taken his daily aspirin in the morning. States he had just eaten a [place] sausage croissant sandwich when symptoms started. Around 5 PM had a shot of [employer]. Reports he is currently asymptomatic. No history of prior similar symptoms. No history of stroke. Daughter later present in the emergency department, (patient consents to his/her/their knowledge and involvement in pts' medical care). Patient reports he recently had a lesion on his face and a ganglion cyst on his right hand removed in December he was seen by Dr. Brower at that time for a cardiac clearance. Cannot recall most recent echocardiogram or stress test. Denies any associated cocaine, ivdu or methamphetamine abuse. Does report history of carotid stenosis with removal at [facility] near 2014 after patient flew outside while tripping. Is on no anticoagulants. Reports chronic leg swelling- follows with vascular at [facility], no h/o deep venous thrombosis. Denies any recent falls or trauma. Ports no history of stroke or heart attack Review of Systems: Review of Systems: Constitutional: Denies fever or chills or speech changes or facial droop Eyes: Denies change in visual acuity. [] HENT: Denies nasal congestion or sore throat. [] Respiratory: Denies cough or shortness of breath or hemoptysis Cardiovascular: Denies chest pain or edema. [] GI: Denies abdominal pain, nausea, vomiting, bloody stools or diarrhea. [] : Denies dysuria or incontinence Musculoskeletal: Denies back pain or joint pain. [] Integument: Denies rash or diaphoresis Neurologic: Denies headache, neck stiffness, or changes in gait Endocrine: Denies polyuria or polydipsia. [] Lymphatic: Denies swollen glands. [] Psychiatric: Denies depression or anxiety. [] Heart Score: C/O Chest Pain: No HEART Score for Chest Pain: HEART Score for Chest Pain Response (Comments) Value History Slighlty/Non-Suspicious 0 ECG Normal 0 Age > 65 2 Risk Factors >3 Risk Factors or Hx CAD 2 Troponin < Normal Limit 0 Total 4 Risk Factors: Risk Factors: DM, Current or recent (<one month) smoker, HTN, HLP, family history of CAD, obesity. Risk Scores: Score 0 - 3: 2.5% MACE over next 6 weeks - Discharge Home Score 4 - 6: 20.3% MACE over next 6 weeks - Admit for Clinical Observation Score 7 - 10: 72.7% MACE over next 6 weeks - Early Invasive Strategies Current Medications: Current Medications Medications (Trade) Dose Ordered Sig/Dejuan Start Time Stop Time Status Last Admin Dose Admin Sodium Chloride 1,000 ml @ 1,000 mls/hr Q1H 05/04/21 20:15 05/04/21 21:14 Allergies: Allergies: Allergies Coded Allergies Type Severity Reaction Last Updated Verified Ddjdjnl-GRS-BnA Reductase Inhibitor Allergy Intermediate JOINT "LOCK UP" 01/06/21 Yes Physical Exam: PE: Constitutional: Well developed, well nourished, no acute distress, non-toxic appearance, normal speech-no aphasia or obvious alcohol on breath HENT: Normocephalic, atraumatic, Eyes: EOMI, conjunctiva normal, no discharge. Neck: Normal range of motion, supple, no carotid bruits or obvious JVD bilaterally Cardiovascular: S1/2 present, irregular rhythm Lungs & Thorax: Speaking in full sentences, bilateral equal chest rise, no tachypnea or increased work of breathing Abdomen: soft, no tenderness, obese Skin: Warm, dry, no erythema, no rash. [] Extremities: No tenderness, no cyanosis, bilateral lower extremity edema with hemosiderin deposition-left calf appears slightly larger than right Neurologic: cn2-12 intant, nihss0, Alert and oriented X 3, normal motor function, normal sensory function, no focal deficits noted, no extremity drift, 5 out of 5 equal upper extremity muscle strength, median/radial/ulnar sensation equal, radial pulses equal Psychologic: Affect normal, judgement normal, mood normal. [] EKG: EKG: Irregular rhythm/A. fib at 75 bpm, normal intervals, left axis deviation, cannot appreciate any T wave inversions, ST elevations or ST depressions Radiology/Procedures: Radiology/Procedures: IMAGING REPORT Signed PATIENT: JASMYNE GALLEGOS ACCOUNT: [id number] : 1940 LOCATION: ER AGE: 81 SEX: M EXAM STATUS: REG ER ORD. PHYSICIAN: MENA RICKS DO REASON: left arm weak/pain/numb PROCEDURE: CT HEAD WO CONTRAST Exam: CT head INDICATION: Left arm weak TECHNIQUE: Sequential axial images through the head were obtained without the administration of IV contrast. Exposure: One or more of the following in the visualized dose reduction techniques were utilized for this examination: 1. Automated exposure control 2. Adjustment of the MA and/or KV according to patient size 3. Use of iterative of reconstructive technique Comparisons: 05/22/2020 FINDINGS: No focal parenchymal lesion or hemorrhage is identified. Stable meningioma in the medial right frontal region. There is no midline shift or sulcal effacement. No acute vascular territory infarction is identified. Short-white distinction is preserved. The ventricular system is within normal limits without compression hydrocephalus. The basal cisterns are well maintained. Near complete opacification of the right maxillary sinus. No acute fractures. IMPRESSION: No acute intracranial abnormality. Electronically signed by: Shantel Nicholson MD (05/04/2021 8:34 PM) [facility] DICTATED and SIGNED BY: SHANTEL NICHOLSON MD DATE: 05/04/21 [id number] 0 IMAGING REPORT Signed PATIENT: JASMYNE GALLEGOS ACCOUNT: [id number] : 1940 LOCATION: ER AGE: 81 SEX: M EXAM STATUS: PRE ER ORD. PHYSICIAN: MENA RICKS DO REASON: left arm pain/numb/weak PROCEDURE: PORTABLE CHEST 1V AP chest x-ray HISTORY: Left arm pain, numbness and weakness. COMPARISON: Chest x-ray August 20, 2020 FINDINGS: Heart size upper limits normal stable. Aortic arch calcified plaque. Enlargement of the main pulmonary artery silhouette and mild prominence of the pulmonary arteries at the reba likely represent pulmonary artery hypertension changes, stable. No pneumothorax. No pulmonary opacities. No pleural effusions. Bones are unremarkable. IMPRESSION: No acute process. Stable exam as described above. Electronically signed by: Tommy Cotton MD (05/04/2021 8:14 PM) [facility] DICTATED and SIGNED BY: TOMMY COTTON MD DATE: 05/04/[id number] 0 IMAGING REPORT Signed PATIENT: JASMYNE GALLEGOS ACCOUNT: [id number] : 1940 LOCATION: ER AGE: 81 SEX: M EXAM STATUS: REG ER ORD. PHYSICIAN: MENA RICKS DO REASON: bl leg swelling, L >> R PROCEDURE: VENOUS LOWER EXT BILATERAL Exam: Bilateral lower extremity venous duplex study INDICATION: Leg swelling TECHNIQUE: Using a combination of real-time ultrasound imaging and color-flow and pulse Doppler imaging techniques along with graded compression and augmentation, duplex evaluation of the deep venous systems of bilateral lower extremity was performed. Multiple images were obtained. Findings: There is no sonographic evidence for deep venous thrombosis involving the visualized deep venous structures of the bilateral lower extremity. IMPRESSION: No acute DVT in the bilateral lower extremities. Electronically signed by: Shantel Nicholson MD (05/04/2021 9:09 PM) [facility] DICTATED and SIGNED BY: SHANTEL NICHOLSON MD DATE: 05/04/[id number] 0 Course & Med Decision Making: Course & Med Decision Making Pertinent Labs and Imaging studies reviewed. (See chart for details) Concern for left extremity numbness and weakness in the absence of any chest pain, neck pain, trauma neurologic deficit or radiculopathy. Differential includes but is not limited to unstable angina, nstemi and tia. Patient has been asymptomatic in the emergency department. EMR was reviewed and patient has known history of A. fib on prior EKGs back from 2014. Patient with no bruits on neck exam. EMR with no recent cardiac documentation - cath report reviewed from 2013. I explained to patient that I am concerned that this could be an atypical cardiac or neurologic process and it was my recommendation to admit him to the hospital for serial cardiac enzymes with neurology and cardiology consultations. Patient reports he feels fine and requests to be discharged home so he can sleep in his own bed that "I'll come back if symptoms come back." Patient understands I recommended admission for observation and quick intervention if patient should develop any recurrent symptoms-that delay in doing so could result in permanent disability or . Pt also made aware I wanted a second high sensitivity troponin-patient would not wait for surgical and understands this increases his risk even further if underlying process would be cardiac. Patients' daughter at bedside unable to convince patient to states she spoke to patient's brother over the phone-both unable to convince patient to stay for hospital admission. The patient has decided to leave our facility against medical advice. I have assessed patient's ability to make informed decision and feel the patient has the capacity to comprehend information regarding the current medical condition and appreciates the impact of the disease or condition and the consequences of various options for treatment, including foregoing treatment. The patient possesses the ability to evaluate all treatment options, comparing the risks and benefits of each option, communicate his or her choice in a consistent manner over time, and is able to make rational choices. I explained to the patient further testing, treatment, and evaluation I would like to perform in the emergency department visit as well as any possible alternatives that can be accomplished in a timely manner. I have outlined the possible risks of foregoing any or all of these interventions and the patient understands and acknowledges that the decision to leave may result in undesirable consequences such as , permanent disability, and/or loss of current lifestyle. Even though leaving AMA is not ideal, I have instructed the patient to follow any discharge instructions given, take any medications prescribed, and resume care as soon as possible with another provider. This conversation was witnessed by another member of the emergency department staff (Jackie) and we clearly communicated the patient is welcome to return anytime to continue care at our facility. Dragon Disclaimer: Dragon Disclaimer: This electronic medical record was generated, in whole or in part, using a voice recognition dictation system. Departure Departure Impression: Primary Impression: Pain and numbness of left upper extremity Additional Impression: Coronary artery disease Disposition: LEFT AGAINST MEDICAL ADVICE Admitting Physician: FIONA (Dr. Link) Condition: STABLE Referrals: FLO FAITH DO (PCP) Follow-up with your primary care physician in 24 to 48 hours OR FOLLOW UP WITH FAMILY MEDICINE: [address], [address] [place] [address] Patient Instructions: Coronary Artery Bypass Grafting, Care After, Discharge Against Medical Advice, Weakness Additional Instructions: FOLLOW UP WITH CARDIOLOGY: FOR DEFINITIVE MANAGEMENT of atypical chest pain [facility] [address] [place] [address] FOLLOW UP WITH NEUROLOGY: FOR DEFINITIVE MANAGEMENT of left upper extremity weakness and numbness [facility] Neu[facility] [address], [address] [place] [address] EMERGENCY DEPARTMENT GENERAL DISCHARGE INSTRUCTIONS Thank you for coming to [facility] Emergency Department (ED) today and trusting us with you care. We trust that you had a positive experience in our Emergency Department. If you wish to speak to the department management, you may call the Director at [phone]. YOUR FOLLOW UP INSTRUCTIONS ARE FOLLOWS: 1. Do you have a private Doctor? If you do not have a private doctor, please ask for a resource list of physicians or clinics that may be able to assist you with follow up care. 2. The Emergency Physicain has interpreted your x-rays. The X-Ray specialist will also review them. If there is a change in the findings, you will be notified in 48 hours when at all possible. 3. A lab test or culture has been done, your results will be reviewed and you will be notified if you need a change in treatment. ADDITIONAL INSTRUCTIONS AND INFORMATION: 1. Your care today has been supervised by a physician who is specially trained in emergency care. Many problems require more than one evaluation for a complete diagnosis and treatment. We recommend that you schedule your follow up appointment as recommended to ensure complete treatment of you illness or injury. If you are unable to obtain follow up care and continue to have a problem, or if your condition worsens, we recommend that you return to the ED. 2. We are not able to safely determine your condition over the phone nor are we able to give sound medical advice over the phone. For these safety reasons, if you call for medical advice we will ask you to come to the ED for further evaluation. 3. If you have any questions regarding these discharge instructions please call the ED at [phone]. SAFETY INFORMATION: In the interest of safety, wellness, and injury prevention; we encourage you to wear your sealbelt, if you smoke; quite smoking, and we encourage family to use a protective helmet for bicycling and other sporting events that present an increased risk for head injury. IF YOUR SYMPTOMS WORSEN OR NEW SYMPTOMS DEVELOP, OR YOU HAVE CONCERNS ABOUT YOUR CONDITION; OR IF YOUR CONDITION WORSENS WHILE YOU ARE WAITING FOR YOUR FOLLOW UP APPOINTMENT; EITHER CONTACT YOUR PRIMARY CARE DOCTOR, THE PHYSICIAN WHOSE NAME AND NUMBER YOU WERE GIVEN, OR RETURN TO THE ED IMMEDIATELY. MENA RICKS DO May 04, 2021 20:17
[2021-05-04 20:25] LABS: PROTHROMBIN TIME PATIENT 13.6 SEC (11.7-14.0)
--- NOTE | 2021-05-04 20:37 | RAD ---
Exam: CT head INDICATION: Left arm weak TECHNIQUE: Sequential axial images through the head were obtained without the administration of IV co ntrast. Exposure: One or more of the following in the visualized dose reduction techniques were utilized for this examination: 1. Automated exposure control 2. Adjustment of the MA and/or KV according to patient size 3. Use of iterative of reconstructive technique Comparisons: 05/22/2020 FINDINGS: No focal parenchymal lesion or hemorrhage is identified. Stable meningioma in the medial right fronta l region. There is no midline shift or sulcal effacement. No acute vascular territory infarction is identified. Short-white distinction is preserved. The ventricular system is within normal limits without compression hydrocephalus. The basal cisterns are well maintained. Near complete opacification of the right maxillary sinus. No acute fractures. IMPRESSION: No acute intracranial abnormality. Electronically signed by: Shantel Anderson MD (05/04/2021 8:34 PM) [facility]
--- NOTE | 2021-05-04 21:11 | RAD ---
Exam: Bilateral lower extremity venous duplex study INDICATION: Leg swelling TECHNIQUE: Using a combination of real-time ultrasound imaging and color-flow and pulse Doppler imagi ng techniques along with graded compression and augmentation, duplex evaluation of the deep venous sy stems of bilateral lower extremity was performed. Multiple images were obtained. Findings: There is no sonographic evidence for deep venous thrombosis involving the visualized deep venous stru ctures of the bilateral lower extremity. IMPRESSION: No acute DVT in the bilateral lower extremities. Electronically signed by: Shantel Anderson MD (05/04/2021 9:09 PM) [facility]
[2021-05-04 21:29] LABS: CALCIUM 8.3 mg/dL (8.5-10.1); CREATININE 0.7 mg/dL (0.7-1.3); POTASSIUM 4.3 mmol/L (3.5-5.1)
[2021-05-04 21:35] LABS: ALBUMIN 2.9 g/dL (3.4-5.0); ALBUMIN/GLOBULIN RATIO 0.8 (1.0-1.7); MAGNESIUM 1.7 mg/dL (1.8-2.4); TOTAL BILIRUBIN 0.5 mg/dL (0.2-1.0); TOTAL PROTEIN 6.4 g/dL (6.4-8.2)
[2021-05-04 21:47] LABS: BILIRUBIN,URINE NEGATIVE (NEG); CLARITY,URINE CLEAR; COLOR,URINE YELLOW; NITRITE,URINE NEGATIVE (NEG); PH,URINE 6.5 (<5.0-8.0); PROTEIN,URINE NEGATIVE (NEG-TRACE)
[2021-05-04 21:58] LABS: BACTERIA,URINE 0 /HPF (0-FEW); WBC,URINE 0 /HPF (0-4)
[2021-05-04 22:00] VITALS: BP 143/81
--- NOTE | 2021-05-05 08:27 | EKG ---
[facility] [address] [place] [address] Test Date: 2021-05-04 Test Time: 19:47:01 Pat Name: JASMYNE GALLEGOS Department: Room: [facility] Gender: M Video Presentation Operator: : 1940 Requested By: MENA RICKS Order Number: [id number] Reading MD: Francisco Duran Measurements Intervals Vivian Rate: 75 P: [place]: QRS: -26 QRSD: 92 T: 0 QT: 356 QTc: 400 Interpretive Statements SINUS ARRHYTHMIA VENTRICULAR PREMATURE COMPLEX(ES) PACS NON SPECIFIC ST-T WAVE CHANGES POSSIBLE OLD ANTEROSEPTAL INFARCT Electronically Signed On 05-05-2021 13:43:49 PRESS WRITER by Francisco Duran
== END 2021-05-04 22:45 | disposition left against medical advice (07) ==
LOC: ER 19:43 → UNDOADMIN 22:05 → 5 NORTH 22:05
DX: I25.10 Atherosclerotic heart disease of native coronary artery without angina pectoris (principal); I10 Essential (primary) hypertension; J44.9 Chronic obstructive pulmonary disease, unspecified; E11.9 Type 2 diabetes mellitus without complications; E78.00 Pure hypercholesterolemia, unspecified; I48.91 Unspecified atrial fibrillation; Z87.891 Personal history of nicotine dependence; Z90.49 Acquired absence of other specified parts of digestive tract; Z91.041 Radiographic dye allergy status
CPT/HCPCS: 36415; 70450; 71045; 80053; 81001; 83690; 83735; 83880; 84484; 85025; 85610; 85730; 93005; 93970; 96360; 99285; G0480; J7030; G0378

== ENCOUNTER 2021-07-06 05:26 | Emergency (ER) | payer MEDICARE, OTHER ==
[~2021-07-06] VITALS: Ht 182.9 cm; Wt 100.0 kg
[~2021-07-06 05:26] MED LIST changes: +ACLI400A2 IH; -ACLI400A3 IH
[2021-07-06] MEDS ORDERED: IPRATRPIUM/ALBUTEROL 0.5/2.5MG 3 ML NEBU. NEB ONE ×2 (06:15→08:45)
[2021-07-06] MEDS ORDERED: methylPREDNISolone SOD SUCC PF 125 MG/2 ML VIAL. IV ONE (06:15)
[2021-07-06 06:32] LABS: BASO % 1 % (0-3); EOS # 0.1 x10^3/uL (0.0-0.7); EOS % 1 % (0-3); HEMATOCRIT 46.8 % (39.0-53.0); HEMOGLOBIN 14.8 g/dL (13.0-17.5); LYMPH # 1.1 x10^3/uL (1.0-4.8); LYMPH % 17 % (24-48); MEAN CORPUSCULAR HEMOGLOBIN 30 pg (25-35); MEAN CORPUSCULAR HGB CONC 32 g/dL (31-37); MEAN CORPUSCULAR VOLUME 95 fL (79-100); MONO % 15 % (0-9); NEUT # 4.6 x10^3/uL (1.8-7.7); NEUT % 67 % (31-73); PLATELET COUNT 81 x10^3/uL (140-400); RED BLOOD COUNT 4.93 x10^6/uL (4.30-5.70); RED CELL DISTRIBUTION WIDTH 15.8 % (11.5-14.5); WHITE BLOOD COUNT 6.9 x10^3/uL (4.0-11.0)
--- NOTE | 2021-07-06 06:40 | EKG ---
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
--- NOTE | 2021-07-06 06:43 | PHYS DOC ---
Past Medical History Past Medical History: A-Fib, COPD, Diabetes-Type II, High Cholesterol, Hypertension, Other Additional Past Medical Histor: CARDIAC CATH 2003 Past Surgical History: Cholecystectomy Smoking Status: Former Smoker Alcohol Use: None Drug Use: Opiates Adult General Chief Complaint Chief Complaint: SHORTNESS OF BREATH HPI HPI Patient is a 81 year old male present emergency department for evaluation of dyspnea that he says has been worsening over several days but became worse to the point he thought he had to come to the emergency department this morning w hen he went outside to take the dogs out he cannot catch his breath. He has oxygen available to him at home and says that he has been using it and he also used an inhaler and he thinks it may have helped his breathing out somewhat but he still feels short of breath. He denies productive cough fevers chills pain nausea vomiting or other systemic symptoms. He says he has been diagnosed with COPD in the past and he also has a history of hypertension hyperlipidemia and atrial fibrillation for which she is not anticoagulated and just takes a baby aspirin daily. He appears to be slightly dyspneic but nontoxic with normal vital signs. Review of Systems Review of Systems Constitutional: Denies fever or chills [] Eyes: Denies change in visual acuity, redness, or eye pain [] HENT: Denies nasal congestion or sore throat [] Respiratory: Denies cough. + shortness of breath [] Cardiovascular: No additional information not addressed in HPI [] GI: Denies abdominal pain, nausea, vomiting, bloody stools or diarrhea [] : Denies dysuria or hematuria [] Musculoskeletal: Denies back pain or joint pain [] Integument: Denies rash or skin lesions [] Neurologic: Denies headache, focal weakness or sensory changes [] All other systems were reviewed and found to be within normal limits, except as documented in this note. Current Medications Current Medications Current Medications Medications (Trade) Dose Ordered Sig/Dejuan Start Time Stop Time Status Last Admin Dose Admin Albuterol/ Ipratropium (Duoneb) 3 ml 1X ONCE 07/06/21 06:15 07/06/21 06:16 DC 07/06/21 06:29 3 ML Info (CONTRAST GIVEN -- Rx MONITORING) 1 each PRN DAILY PRN 07/06/21 07:30 07/08/21 07:29 Iohexol (Omnipaque 350 Mg/ml) 100 ml 1X ONCE 07/06/21 07:30 07/06/21 07:31 DC 07/06/21 07:42 100 ML Methylprednisolone Sodium Succinate (SOLU-Medrol 125MG VIAL) 125 mg 1X ONCE 07/06/21 06:15 07/06/21 06:16 DC 07/06/21 06:43 125 MG Allergies Allergies Allergies Coded Allergies Type Severity Reaction Last Updated Verified [id number]-[id number]-VbW Reductase Inhibitor Allergy Intermediate JOINT "LOCK UP" 01/06/21 Yes Physical Exam Physical Exam Constitutional: Well developed, well nourished, mild respiratory distress HENT: Normocephalic, atraumatic, bilateral external ears normal, oropharynx moist, no oral exudates, nose normal. [] Eyes: PERRLA, EOMI, conjunctiva normal, no discharge. [] Neck: Normal range of motion, no tenderness, supple, no stridor. [] Cardiovascular:Heart rate regular rhythm, no murmur [] Lungs & Thorax: Bilateral breath sounds diminished with inspiratory and expiratory wheezing Abdomen: Bowel sounds normal, soft, no tenderness, no masses, no pulsatile masses. [] Skin: Warm, dry, no erythema, no rash. [] Back: No tenderness, no CVA tenderness. [] Extremities: No tenderness, no cyanosis, no clubbing, ROM intact, no edema. [] Neurologic: Alert and oriented X 3, normal motor function, normal sensory function, no focal deficits noted. [] Current Patient Data Vital Signs Vital Signs Date Time Temp Pulse Resp B/P (MAP) Pulse Ox O2 Delivery O2 Flow Rate FiO2 07/06/21 08:08 103 22 156/92 (113) 95 Room Air 07/06/21 05:42 98.8 98.8 Lab Values Laboratory Tests Test 07/06/21 06:23 White Blood Count 6.9 x10^3/uL (4.0-11.0) Red Blood Count 4.93 x10^6/uL (4.30-5.70) Hemoglobin 14.8 g/dL (13.0-17.5) Hematocrit 46.8 % (39.0-53.0) Mean Corpuscular Volume 95 fL (79-100) Mean Corpuscular Hemoglobin 30 pg (25-35) Mean Corpuscular Hemoglobin Concent 32 g/dL (31-37) Red Cell Distribution Width 15.8 % (11.5-14.5) H Platelet Count 81 x10^3/uL (140-400) L Neutrophils (%) (Auto) 67 % (31-73) Lymphocytes (%) (Auto) 17 % (24-48) L Monocytes (%) (Auto) 15 % (0-9) H Eosinophils (%) (Auto) 1 % (0-3) Basophils (%) (Auto) 1 % (0-3) Neutrophils # (Auto) 4.6 x10^3/uL (1.8-7.7) Lymphocytes # (Auto) 1.1 x10^3/uL (1.0-4.8) Monocytes # (Auto) 1.0 x10^3/uL (0.0-1.1) Eosinophils # (Auto) 0.1 x10^3/uL (0.0-0.7) Basophils # (Auto) 0.0 x10^3/uL (0.0-0.2) D-Dimer (Lauren) 2.44 ug/mlFEU (0.00-0.50) H Sodium Level 134 mmol/L (136-145) L Potassium Level 3.5 mmol/L (3.5-5.1) Chloride Level 94 mmol/L (98-107) L Carbon Dioxide Level 26 mmol/L (21-32) Anion Gap 14 (6-14) Blood Urea Nitrogen 6 mg/dL (8-26) L Creatinine 0.7 mg/dL (0.7-1.3) Estimated GFR (Cockcroft-Gault) 108.0 BUN/Creatinine Ratio 9 (6-20) Glucose Level 91 mg/dL (70-99) Calcium Level 8.6 mg/dL (8.5-10.1) Total Bilirubin 1.5 mg/dL (0.2-1.0) H Aspartate Amino Transferase (AST) 116 U/L (15-37) H Alanine Aminotransferase (ALT) 78 U/L (16-63) H Alkaline Phosphatase 77 U/L (46-116) Troponin I High Sensitivity 12 ng/L (4-75) GU-Mew-E-Type Natriuretic Peptide 342 pg/mL (0-449) Total Protein 6.1 g/dL (6.4-8.2) L Albumin 3.5 g/dL (3.4-5.0) Albumin/Globulin Ratio 1.3 (1.0-1.7) Influenza Type A Antigen Negative (NEGATIVE) Influenza Type B Antigen Negative (NEGATIVE) SARS-CoV-2 Antigen (Rapid) Negative (NEGATIVE) Laboratory Tests 07/06/21 06:23 Laboratory Tests 07/06/21 06:23 EKG EKG Atrial fibrillation at 91 bpm with leftward axis no ST elevation or depression and normal T waves. Radiology/Procedures Radiology/Procedures [] Course & Med Decision Making Course & Med Decision Making Patient says that he feels that he was completely fixed within 5 minutes of getting a breathing treatment as he is no longer short of breath and his oxygen saturation continued to be in the mid to upper 90.s patient does have a multitude of findings that are incidental on his labs and imaging I discussed all of them including the abnormal liver function tests, inguinal hernias and pulmonary hypertension. I did discuss all of the incidental findings and the need for follow-up. I told patient that the pulmonary hypertension could be related to his shortness of breath and that he should have this followed with his edge brusher Dr. Musa as he may need further testing and treatment but at this time given he was wheezing with diminished breath sounds I suspect it was his COPD that is causing him to be short of breath. His repeat lung exam was improved with improved aeration and decreased wheezing. Patient says that he feels well and would like to go home. He reportedly has a nebulizer but no albuterol nebs so I will prescribe this for him in addition to prednisone told to follow-up primary care provider within 2 to 3 days for recheck and come back to emergency department sooner with worsening pain shortness of breath or other general concerns. Patient aware and agreeable with plan and verbalized understanding of the above instructions. Dragon Disclaimer Dragon Disclaimer This electronic medical record was generated, in whole or in part, using a voice recognition dictation system. Departure Departure Impression: Primary Impression: COPD with exacerbation Additional Impressions: Transaminitis Inguinal hernia Pulmonary hypertension Disposition: HOME / SELF CARE / HOMELESS Condition: IMPROVED Referrals: FLO FAITH DO (PCP) Patient Instructions: Chronic Obstructive Pulmonary Disease Exacerbation, [id number] Scripts Prednisone (PREDNISONE) 50 Mg Tablet 1 TAB PO DAILY, #4 TAB Prov: JASMYNE BEASLEY DO 07/06/21 Albuterol Sulfate (ALBUTEROL SULFATE NEB SOLN) 2.5 Mg/3 Ml Vial.neb 1 VIAL NEB PRN Q4HRS, #50 VIAL Prov: JASMYNE BEASLEY DO 07/06/21 Problem Qualifiers JASMYNE BEASLEY DO Jul 06, 2021 06:43
[2021-07-06 06:44] LABS: CALCIUM 8.6 mg/dL (8.5-10.1); CREATININE 0.7 mg/dL (0.7-1.3); POTASSIUM 3.5 mmol/L (3.5-5.1)
[2021-07-06 06:48] LABS: INFLUENZA A PATIENT NEGATIVE (NEGATIVE); INFLUENZA B PATIENT NEGATIVE (NEGATIVE)
[2021-07-06 06:51] LABS: ALBUMIN 3.5 g/dL (3.4-5.0); ALBUMIN/GLOBULIN RATIO 1.3 (1.0-1.7); TOTAL BILIRUBIN 1.5 mg/dL (0.2-1.0); TOTAL PROTEIN 6.1 g/dL (6.4-8.2)
--- NOTE | 2021-07-06 06:54 | RAD ---
EXAM: XR CHEST 1V 07/06/2021 6:16 AM CLINICAL INDICATION: Shortness of air COMPARISON: Chest radiograph 05/04/2021 TECHNIQUE: AP upright view the chest Findings: Cardiomegaly appears mildly increased, which could be due to technique or pericardial effus ion. The lungs are well-expanded and clear. No pleural effusion or pneumothorax. IMPRESSION: Cardiomegaly appears increased, which could be due to technique or pericardial effusion. Electronically signed by: Charis Verde MD (07/06/2021 6:52 AM) [facility]
[2021-07-06] MEDS ORDERED: CONTRAST GIVEN. MC PRN (07:30)
[2021-07-06] MEDS ORDERED: IOHEXOL 350 MG/ML 100 ML VIAL. IV ONE (07:30)
--- NOTE | 2021-07-06 08:12 | RAD ---
EXAMINATION: CTA chest, CT abdomen and pelvis with IV contrast. INDICATION:81 years, Male, abdominal pain, transaminitis, shortness of breath. Evaluate for pulmonary embolism. TECHNIQUE: Axial CTA images of the chest, CT abdomen and pelvis were obtained. MIP Coronal and sagitt al reformatted of the chest performed. Coronal and sagittal reformatted the abdomen and pelvis perfor med. COMPARISON: None. Exposure: One or more of the following individualized dose reduction techniques were utilized for thi s examination: 1. Automated exposure control 2. Adjustment of the mA and/or kV according to patient size 3. Use of iterative reconstruction technique. FINDINGS: CHEST: Visualized thyroid and esophagus are unremarkable. Few prominent pretracheal and right hilar lymph no chris, likely reactive. Calcified subcarinal and right hilar lymph nodes. Cardiomegaly. Dense atheroscl erotic calcifications of the mitral valve annulus. No pericardial effusion. Moderate coronary artery atherosclerotic calcifications. Enlarged pulmonary trunk measures up to 4.6 cm, compatible with pulmo nary arterial hypertension. No evidence of pulmonary embolism. Central airways are patent. No focal consolidation, pleural effusion or pneumothorax. Linear subsegme ntal atelectasis and/or scarring in bibasilar lungs, right middle lobe and lingula. Calcified granulo ma in the right middle lobe. No suspicious pulmonary nodule. ABDOMEN/PELVIS: Diffuse hepatic steatosis. No suspicious focal hepatic lesion. Cholecystectomy. No biliary ductal dil ation. Unremarkable spleen. Mildly atrophic pancreas. No adrenal nodule. No hydronephrosis or nephrol ithiasis in either kidney. Simple appearing bilateral renal cortical cysts, the largest exophytic fro m the lower pole left kidney measures 7.8 x 6.0 cm. Additional, subcentimeter hypodensities in both r enal cortices, too small to characterize. Nonspecific bilateral perinephric fat stranding. No bowel dilation. Extensive colonic diverticulosis without acute diverticulitis. Uncomplicated proxi mal duodenal diverticulum. Appendix is normal. Severe aortoiliac atherosclerotic calcifications witho ut narrowing or dilation. Mesenteric arteries and portal veins are patent. No lymphadenopathy in the abdomen or pelvis by size criteria. No pneumoperitoneum or ascites. Right anterior urinary bladder is herniated throughout the right inguinal hernia. Otherwise, urinary bladder is unremarkable. Prostamegaly with brachytherapy seed implants in place. MUSCULOSKELETAL STRUCTURES: No suspicious osseous lesion or acute process. Kyphoplasty changes at L2 vertebral body. Severe multi level degenerative changes in the spine. Bilateral moderate-size inguinal hernias; the right inguinal hernia is containing portion of the urinary bladder. The left inguinal hernia is containing fat. IMPRESSION: 1. No evidence of pulmonary embolism. 2. Enlarged pulmonary trunk compatible with pulmonary arterial hypertension. 3. Hepatic steatosis. 4. Extensive colonic diverticulosis. 5. Moderate-size bilateral inguinal hernias; the right inguinal hernia is containing portion of the urinary bladder. 6. Prostamegaly. Correlate with PSA level. 7. Other chronic/incidental findings, as described above. Electronically signed by: Romelia Mcgraw MD (07/06/2021 8:10 AM) [facility]
[2021-07-06 08:38] VITALS: BP 141/75
[2021-07-06] MEDS ORDERED: PRED50TA PO (08:46)
[2021-07-06] MEDS ORDERED: ALBU2.5V5 NEB (08:46)
== END 2021-07-06 09:10 | disposition home or self-care (01) ==
LOC: ER 05:26
DX: J44.1 Chronic obstructive pulmonary disease with (acute) exacerbation (principal); I48.91 Unspecified atrial fibrillation; Z20.822 Contact with and (suspected) exposure to COVID-19; R74.01 Elevation of levels of liver transaminase levels; K40.90 Unilateral inguinal hernia, without obstruction or gangrene, not specified as recurrent; I27.20 Pulmonary hypertension, unspecified; E11.9 Type 2 diabetes mellitus without complications; E78.00 Pure hypercholesterolemia, unspecified; Z87.891 Personal history of nicotine dependence; Z91.041 Radiographic dye allergy status
CPT/HCPCS: 36415; 71045; 71275; 74177; 80053; 83880; 84484; 85025; 85379; 87428; 93005; 94640; 94760; 96374; 99285; J2930; Q9967; 94664

== ENCOUNTER 2021-07-22 18:00 | Emergency (ER) | payer MEDICARE, OTHER ==
[~2021-07-22] VITALS: Ht 182.9 cm; Wt 120.0 kg
[~2021-07-22 18:00] MED LIST changes: +ALBU2.5V5 NEB; +PRED50TA PO
[2021-07-22 19:58] LABS: BASO # 0.1 x10^3/uL (0.0-0.2); BASO % 2 % (0-3); EOS # 0.1 x10^3/uL (0.0-0.7); EOS % 2 % (0-3); HEMATOCRIT 41.4 % (39.0-53.0); HEMOGLOBIN 13.7 g/dL (13.0-17.5); LYMPH # 1.5 x10^3/uL (1.0-4.8); LYMPH % 22 % (24-48); MEAN CORPUSCULAR HEMOGLOBIN 32 pg (25-35); MEAN CORPUSCULAR HGB CONC 33 g/dL (31-37); MEAN CORPUSCULAR VOLUME 95 fL (79-100); MONO # 0.7 x10^3/uL (0.0-1.1); MONO % 10 % (0-9); NEUT # 4.4 x10^3/uL (1.8-7.7); NEUT % 64 % (31-73); PLATELET COUNT 155 x10^3/uL (140-400); RED BLOOD COUNT 4.34 x10^6/uL (4.30-5.70); RED CELL DISTRIBUTION WIDTH 15.3 % (11.5-14.5); WHITE BLOOD COUNT 6.9 x10^3/uL (4.0-11.0)
[2021-07-22 20:06] LABS: BACTERIA,URINE 0 /HPF (0-FEW); RBC,URINE OCC /HPF (0-2); WBC,URINE 0 /HPF (0-4)
--- NOTE | 2021-07-22 20:20 | RAD ---
XR CHEST 1V History: Reason: Weakness, decreased LOC / Spl. Instructions: / History: Comparison: July 06, 2021 Findings: Hyperinflation. Patchy bibasilar opacities. No pleural effusion. No pneumothorax. Enlarged iliac size , similar compared to prior. Impression: 1. Patchy bibasilar opacities, may represent atelectasis or developing consolidations. 2. Hyperinflation. 3. Enlarged cardiac size, similar compared to prior. Electronically signed by: Chris Romo DO (07/22/2021 8:18 PM) [facility]
[2021-07-22] MEDS ORDERED: FOLIC ACID IV ONE (20:30)
[2021-07-22] MEDS ORDERED: [UNRECOGNIZED DRUG - OTHER] IV ONE (20:30)
[2021-07-22] MEDS ORDERED: MULTIVIT INFUSN ADULT K IV ONE (20:30)
[2021-07-22] MEDS ORDERED: THIAMINE IV ONE (20:30)
[2021-07-22] MEDS ORDERED: MULTIVIT INFUSN,ADULT 4,VIT K 10 ML, THIAMINE INJ 100 MG, FOLIC ACID INJ 1 MG in IV NOR... IV ONE ×2 (20:30)
[2021-07-22 20:40] LABS: CALCIUM 8.2 mg/dL (8.5-10.1); CREATININE 0.6 mg/dL (0.7-1.3); POTASSIUM 3.8 mmol/L (3.5-5.1)
[2021-07-22 20:46] LABS: ALBUMIN 3.2 g/dL (3.4-5.0); TOTAL BILIRUBIN 0.6 mg/dL (0.2-1.0); TOTAL PROTEIN 6.3 g/dL (6.4-8.2)
--- NOTE | 2021-07-22 20:48 | RAD ---
INDICATION: Reason: Weakness, decreased LOC / Spl. Instructions: / History: COMPARISON: May 2021 TECHNIQUE: Axial CT images obtained through the head without intravenous contrast. One or more of the following individualized dose reduction techniques were utilized for this examinat ion: 1. Automated exposure control; 2. Adjustment of the mA and/or kV according to patient size; 3 . Use of iterative reconstruction technique. FINDINGS: At the right frontal region there is a area of high density seen just deep to the calvarium but this has a similar appearance compared to prior examination. No significant midline shift. Ventricles and sulci are globally prominent. Scattered foci of low attenuation within the white matter. IMPRESSION: * No acute intracranial hemorrhage. * At the right frontal region abutting the falx there is a high density masslike structure seen. A p ossible cause of this finding would include an extra-axial partially calcified mass such as meningiom a but nonspecific appearance on this exam and appear slightly increased when compared to remote prior . If further evaluation is needed nonemergent MRI could further assess * Scattered regions of low attenuation within the white matter. Non-specific in nature but a common finding and frequently secondary to small vessel ischemic disease. * Opacification of the right maxillary sinus again seen. Could be from congestion or sinusitis. Electronically signed by: Raf Stewart MD (07/22/2021 8:46 PM) [id number]
[2021-07-22 21:31] VITALS: BP 143/72
--- NOTE | 2021-07-22 22:27 | PHYS DOC ---
Past Medical History Past Medical History: A-Fib, COPD, Diabetes-Type II, High Cholesterol, Hypertension, Other Additional Past Medical Histor: CARDIAC CATH 2003 Past Surgical History: Cholecystectomy, Other Additional Past Surgical Histo: BILAT BIG TOES, CATARACT, BACK SURG Smoking Status: Never Smoker Alcohol Use: Heavy Additional Information: drinking steady for 4 day Drug Use: Opiates General Adult EDM: Chief Complaint: ALCOHOL INTOXICATION HPI: HPI: Patient is a 81-year-old male who presents to the emergency department via [facility], [facility] states they were called to the patient's residence because he was found by his daughter with a decreased level of consciousness and sitting in his own urine. Patient smells of alcohol. Patient reports he has been drinking every day for the past 5 days, states he drinks [employer] 7 whiskey. Patient states he used to be an alcoholic and quit however he had a recent relapse. 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 States he lives at home with his daughter. Patient currently denies chest pains, shortness of breath, recent fever or chills. Patient states he does feel some weakness all over however denies visual disturbances, headaches, denies falling, denies syncopal or near syncopal episodes. Patient denies other physical complaints or physical concerns. Review of Systems: Review of Systems: 14 body systems of review of systems have been reviewed. See HPI for pertinent positives and negative responses, otherwise all other systems are negative, nonpertinent or noncontributory. Constitutional: Negative except as outlined in HPI above. Skin: Negative except as outlined in HPI above. Eyes: Negative except as outlined in HPI above. HENT: Negative except as outlined in HPI above. Respiratory: Negative except as outlined in HPI above. Cardiovascular: Negative except as outlined in HPI above. GI: Negative except as outlined in HPI above. : Negative except as outlined in HPI above. Musculoskeletal: Negative except as outlined in HPI above. Integument: Negative except as outlined in HPI above. Neurologic: Negative except as outlined in HPI above. Endocrine: Negative except as outlined in HPI above. Lymphatic: Negative except as outlined in HPI above. Psychiatric: Negative except as outlined in HPI above. Heart Score: C/O Chest Pain: No Risk Factors: Risk Factors: DM, Current or recent (<one month) smoker, HTN, HLP, family history of CAD, obesity. Risk Scores: Score 0 - 3: 2.5% MACE over next 6 weeks - Discharge Home Score 4 - 6: 20.3% MACE over next 6 weeks - Admit for Clinical Observation Score 7 - 10: 72.7% MACE over next 6 weeks - Early Invasive Strategies Current Medications: Current Medications Medications (Trade) Dose Ordered Sig/Dejuan Start Time Stop Time Status Last Admin Dose Admin Multivitamins 10 ml/Thiamine HCl 100 mg/Folic Acid 1 mg/Ringer's Solution 1,011.2 ml @ 1,000.088 mls/hr 1X ONCE 07/22/21 20:30 07/22/21 20:11 DC Multivitamins 10 ml/Thiamine HCl 100 mg/Folic Acid 1 mg/Sodium Chloride 1,011.2 ml @ 1,000.088 mls/hr 1X ONCE 07/22/21 20:30 07/22/21 20:26 DC Allergies: Allergies: Allergies Coded Allergies Type Severity Reaction Last Updated Verified Crmchbs-RVZ-CfI Reductase Inhibitor Allergy Intermediate JOINT "LOCK UP" 01/06/21 Yes Physical Exam: PE: Constitutional: Well developed, well nourished, no acute distress, non-toxic appearance. 81-year-old male in no apparent distress. Strong smell of EtOH and urine from patient. Patient disheveled in appearance. HENT: Normocephalic, atraumatic. Oropharynx moist, pink, no deep tissue infectious process appreciated, there is no lymphadenopathy of the head or neck appreciated, bilateral TMs are intact and within normal limits, there is no drooling, no trismus, patient speaking in normal voice tones. Eyes: Conjunctiva normal, no discharge. There is no scleral icterus. Neck: Normal range of motion, no stridor. There is no neck pain. No nuchal rigidity, no meningismus signs. Cardiovascular: No cyanosis appreciated, distal cap refill less than 2 seconds. Lungs & Thorax: Patient is in no respiratory distress, no audible adventitious lung sounds appreciated. Lung sounds are clear to auscultation all lung brooks. Abdomen: Nontender, no abnormalities noted. Skin: Warm, dry, no erythema, no rash. Back: No tenderness, no deformities. Extremities: No tenderness, no cyanosis, no clubbing, ROM intact, there is bilateral lower extremity 1+ pitting edema from distal third of lower legs bilaterally to feet. 2+ bilateral dorsalis pedis pulses equal. Distal cap refill is less than 2 seconds equal bilateral lower extremities the patient's toenails are yellow and thick. Neurologic: Alert and oriented X 3, normal motor function, normal sensory function, no focal deficits noted. Psychologic: Affect normal, judgement normal, mood normal. Current Patient Data: Labs: Laboratory Tests Test 07/22/21 18:20 07/22/21 18:40 White Blood Count 6.9 x10^3/uL (4.0-11.0) Red Blood Count 4.34 x10^6/uL (4.30-5.70) Hemoglobin 13.7 g/dL (13.0-17.5) Hematocrit 41.4 % (39.0-53.0) Mean Corpuscular Volume 95 fL (79-100) Mean Corpuscular Hemoglobin 32 pg (25-35) Mean Corpuscular Hemoglobin Concent 33 g/dL (31-37) Red Cell Distribution Width 15.3 % (11.5-14.5) H Platelet Count 155 x10^3/uL (140-400) Neutrophils (%) (Auto) 64 % (31-73) Lymphocytes (%) (Auto) 22 % (24-48) L Monocytes (%) (Auto) 10 % (0-9) H Eosinophils (%) (Auto) 2 % (0-3) Basophils (%) (Auto) 2 % (0-3) Neutrophils # (Auto) 4.4 x10^3/uL (1.8-7.7) Lymphocytes # (Auto) 1.5 x10^3/uL (1.0-4.8) Monocytes # (Auto) 0.7 x10^3/uL (0.0-1.1) Eosinophils # (Auto) 0.1 x10^3/uL (0.0-0.7) Basophils # (Auto) 0.1 x10^3/uL (0.0-0.2) Sodium Level 132 mmol/L (136-145) L Potassium Level 3.8 mmol/L (3.5-5.1) Chloride Level 96 mmol/L (98-107) L Carbon Dioxide Level 25 mmol/L (21-32) Anion Gap 11 (6-14) Blood Urea Nitrogen 6 mg/dL (8-26) L Creatinine 0.6 mg/dL (0.7-1.3) L Estimated GFR (Cockcroft-Gault) 129.0 BUN/Creatinine Ratio 10 (6-20) Glucose Level 73 mg/dL (70-99) Calcium Level 8.2 mg/dL (8.5-10.1) L Total Bilirubin 0.6 mg/dL (0.2-1.0) Aspartate Amino Transferase (AST) 57 U/L (15-37) H Alanine Aminotransferase (ALT) 58 U/L (16-63) Alkaline Phosphatase 66 U/L (46-116) Creatine Kinase 69 U/L (39-308) EX-Vju-M-Type Natriuretic Peptide 371 pg/mL (0-449) Total Protein 6.3 g/dL (6.4-8.2) L Albumin 3.2 g/dL (3.4-5.0) L Albumin/Globulin Ratio 1.0 (1.0-1.7) Ethyl Alcohol Level 268 mg/dL (0-10) H Urine Collection Type Unknown Urine Color (Auto) Colorless Urine Turbidity Clear Urine pH (Auto) 5.5 (<5.0-8.0) Urine Specific [place] 1.005 (1.000-1.030) Urine Protein (Auto) Negative mg/dL (Negative) Urine Glucose (Auto)(UA) Negative mg/dL (Negative) Urine Ketones (Auto) Trace mg/dL (Negative) Urine Blood (Auto) Negative (Negative) Urine Nitrite Negative (Negative) Urine Bilirubin (Auto) Negative (Negative) Urine Urobilinogen (Auto) Normal mg/dL (Normal) Urine Leukocyte Esterase (Auto) Negative (Negative) Urine RBC Occ /HPF (0-2) Urine WBC 0 /HPF (0-4) Urine Bacteria 0 /HPF (0-FEW) Laboratory Tests 07/22/21 18:20 Laboratory Tests 07/22/21 18:20 Vital Signs: Vital Signs Date Time Temp Pulse Resp B/P (MAP) Pulse Ox O2 Delivery O2 Flow Rate FiO2 07/22/21 21:31 76 18 143/72 (95) Room Air 07/22/21 18:55 93 07/22/21 18:05 98.8 98.8 EKG: EKG: EKG performed at 2012 by ED nursing staff shows a atrial fibrillation controlled rate 80 bpm, QTc interval 0.433, no acute STEMI, no ACS, no acute ischemia appreciated, EKG interpreted by ED attending physician Dr. Alexander. Radiology/Procedures: Radiology/Procedures: REASON: Weakness, decreased LOC PROCEDURE: CT HEAD WO CONTRAST INDICATION: Reason: Weakness, decreased LOC / Spl. Instructions: / History: COMPARISON: May 2021 TECHNIQUE: Axial CT images obtained through the head without intravenous contrast. One or more of the following individualized dose reduction techniques were utilized for this examination: 1. Automated exposure control; 2. Adjustment of the mA and/or kV according to patient size; 3. Use of iterative reconstruction technique. FINDINGS: At the right frontal region there is a area of high density seen just deep to the calvarium but this has a similar appearance compared to prior examination. No significant midline shift. Ventricles and sulci are globally prominent. Scattered foci of low attenuation within the white matter. IMPRESSION: * No acute intracranial hemorrhage. * At the right frontal region abutting the falx there is a high density masslike structure seen. A possible cause of this finding would include an extra-axial partially calcified mass such as meningioma but nonspecific appearance on this exam and appear slightly increased when compared to remote prior. If further evaluation is needed nonemergent MRI could further assess * Scattered regions of low attenuation within the white matter. Non-specific in nature but a common finding and frequently secondary to small vessel ischemic disease. * Opacification of the right maxillary sinus again seen. Could be from congestion or sinusitis. Electronically signed by: Raf Stewart MD (07/22/2021 8:46 PM) POINT 3 [id number] REASON: Weakness, decreased LOC PROCEDURE: CHEST AP ONLY XR CHEST 1V History: Reason: Weakness, decreased LOC / Spl. Instructions: / History: Comparison: July 06, 2021 Findings: Hyperinflation. Patchy bibasilar opacities. No pleural effusion. No pneumothorax. Enlarged iliac size, similar compared to prior. Impression: 1. Patchy bibasilar opacities, may represent atelectasis or developing consolidations. 2. Hyperinflation. 3. Enlarged cardiac size, similar compared to prior. Electronically signed by: Chris Romo DO (07/22/2021 8:18 PM) [facility] Course & Med Decision Making: Course & Med Decision Making Pertinent Labs and Imaging studies reviewed. (See chart for details) 81-year-old male, vital signs reviewed, presents emergency department concerning decreased level consciousness at home. Patient's physical examination concerning for acute alcohol intoxication. Will order blood pressure/cardiac/pulse ox monitoring, saline lock, twelve-lead EKG, chest x-ray, CBC, CMP, urinalysis assay, NT proBNP, alcohol level, creatinine kinase level, high-sensitivity troponin I. CT head without contrast. The patient does not exhibit any signs of delirium tremens, however does report history of alcohol withdrawal seizures. Will order banana bag. [facility] caring for the patient reports banana bag was damaged during initiation and contents spilled, the bag was discarded. A repeat banana bag was ordered. The patient did not receive more than 1 L of banana bag fluids. Patient labs were unremarkable, however EtOH level is 265, CT head did show abnormal findings, along with patient's alcohol level of 265 and history of alcohol withdrawal seizures, will recommend admission to hospital for ongoing evaluation and treatment. Discussed all findings and hospitalization recommendations with patient and patient's daughter who is at bedside. The patient has refused recommended admission, wishes to leave AGAINST MEDICAL ADVICE. Both the patient's daughter and myself pleaded with patient to reconsider his decision to leave AGAINST MEDICAL ADVICE. Patient states he does not believe his last seizure was related to his alcoholism, states he will follow-up with his alcohol support group to stop drinking. Patient is adamant he does not wish to stay overnight in the hospital. Notified by the patient's ED nurse that the patient wishes to leave AGAINST MEDICAL ADVICE. The patient and I had an extensive discussion regarding the risks of leaving AMA including but not limited to , permanent disability, and worsening condition. Also had an extensive discussion with the patient regarding the benefits of excepting admission and transfer which include promotion of health and wellness, and ongoing treatment of disease processes. The patient acknowledged the risks and benefits and agreed to take full responsibility of leaving AGAINST MEDICAL ADVICE. The patient was alert and oriented x4 and had full medical decision-making capability when they signed the AMA forms. Dragon Disclaimer: Dragon Disclaimer: This electronic medical record was generated, in whole or in part, using a voice recognition dictation system. Departure Departure Impression: Primary Impression: Left against medical advice Additional Impression: Alcohol abuse Disposition: HOME / SELF CARE / HOMELESS Condition: GOOD Referrals: FLO FAITH DO (PCP) Patient Instructions: Alcohol Problems, Alcohol and Drug Addiction, Finding Treatment Additional Instructions: You were seen today in the emergency department for symptoms related to your alcoholism. You and your daughter indicated you have experienced alcohol withdrawal seizures in the past. I am concerned that this may happen again. I have recommended admission to the hospital for ongoing evaluation and treatment of your alcoholism. You have refused my recommendation for admission, I fear that you may suffer from an alcohol withdrawal seizure as your alcohol level reduces to normal. I fear that you may injure yourself if in fact you do experience an alcohol withdrawal seizure. You had indicated that you feel fine, that you will follow-up with your alcohol treatment center that you used the last time. I encourage you to follow-up with your alcohol treatment center this coming Sunday. Please do not hesitate to return to the emergency department for any worsening symptoms or signs and symptoms of alcoholic tremors or seizures. Follow-up with your primary care doctor this week to discuss options to treat your alcoholism. Patient does not wish to proceed with medical care recommended by ANTOINE Sol. patient given information related to possible complications, up to and including , which could occur as a result of leaving the hospital at this time. Patient verbalizes understanding of risks involved due to leaving against medical advice. Patient has signed AMA form. GLENYS JACKSON APRN Jul 22, 2021 22:27
--- NOTE | 2021-07-23 04:03 | EKG ---
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
--- NOTE | 2021-07-24 03:57 | EKG ---
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
== END 2021-07-22 23:00 | disposition home or self-care (01) ==
LOC: ER 18:00
DX: F10.229 Alcohol dependence with intoxication, unspecified (principal); Y90.8 Blood alcohol level of 240 mg/100 ml or more; I48.91 Unspecified atrial fibrillation; J44.9 Chronic obstructive pulmonary disease, unspecified; E11.9 Type 2 diabetes mellitus without complications; E78.00 Pure hypercholesterolemia, unspecified; I10 Essential (primary) hypertension; Z91.041 Radiographic dye allergy status
CPT/HCPCS: 36415; 70450; 71045; 80053; 81001; 82550; 83880; 85025; 93005; 96365; 96366; 99285; G0480; J3411; J3490; J7030

== ENCOUNTER → 2021-08-18 | Outpatient (CLI) | payer MEDICARE, OTHER ==
[2021-07-22 21:31] VITALS: BP 143/72
--- NOTE | 2021-08-19 13:03 | RAD ---
Lower extremity duplex artery ultrasound - Bilateral. Indication: Nonpalpable pedal pulses. Comparison: None. PQRS Compliance Statement - Stenosis calculations for CT, MR and conventional angiography are based u shelton measurement of the distal ICA diameter in accordance with the NASCET methodology. Stenosis calcu lations for carotid ultrasound studies are derived from validated velocity criteria which are known t o correlate with the NASCET methodology. Procedure: Realtime grayscale B-mode 2D sonographic images of the Leg arteries were performed with color flow, and spectral waveform analysis Doppler imaging. Findings: The arterial waveforms the right lower extremity arteries are monophasic. The arterial wave forms of the left lower extremity demonstrate transition from triphasic waveforms at the common femor al and proximal superficial femoral arteries 2 monophasic waveforms at the distal SFA, popliteal, per tavera, anterior tibial arteries. The right posterior tibial and peroneal arteries are not visualized. The left posterior tibial and peroneal arteries are not visualized. Right peak systolic velocities (cm/s): Common Femoral Artery: 55 Profunda Femoral Artery: 33 Superficial Femoral Artery: 42, 63, 70 Popliteal Artery: 35 P Tibial Artery: not visualized A Tibial Artery: 58 Peroneal Artery: not visualized Dorsalis Pedis Artery: 23 Left peak systolic velocities (cm/s): Common Femoral Artery: 59 Profunda Femoral Artery: 42 Superficial Femoral Artery: 53, 53, 97 Popliteal Artery: 52 P Tibial Artery: not visualized A Tibial Artery: 42 Peroneal Artery: not visualized Dorsalis Pedis Artery: 18 Impression: 1. 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 The right is worse with monophasic waveforms at the common femoral artery likely due to iliac artery stenosis. 2. The bilateral posterior tibial and peroneal arteries are not visualized, likely due to occlusion. Anterior tibial arteries remain patent bilaterally. Electronically signed by: Andrea Lowery MD (08/19/2021 1:01 PM) [id number]
== END ==
LOC: US 14:06
PROVIDERS: ATTEND Podiatrist
DX: I70.203 Unspecified atherosclerosis of native arteries of extremities, bilateral legs (principal)
CPT/HCPCS: 93925